=== PATIENT | female | born 1960 | race Caucasian/White ===

== ENCOUNTER 2016-10-17 17:33 | Observation (INO) | payer OTHER, MEDICAID ==
[2016-10-17] VITALS (7 sets, daily range): BP systolic 127–152; BP diastolic 82–86; PULSE 94–110; RESP 18–20; TEMP 98.2–98.5; O2SAT 94–96
[~2016-10-17] VITALS: Ht 167.6 cm; Wt 114.0 kg
[~2016-10-17 17:33] MED LIST: ALBUAER3 INH; CARV12.52 PO; FURO40TA PO; IPRASOL INH; LEVA750T PO; LORA-361 PO; MONT10TA2 PO; NAPR500T PO; PANT40TA3 PO; PAXI20TA PO; PRAM1TAB PO; PRED10 PO; PRED20 PO; PRED5TAB PO; SPIRCAP INH; SYMB160A INH; TRAZ50TA12 PO
[2016-10-17] MEDS ORDERED: methylPREDNISolone SOD SUCC 125 MG/2 ML VIAL IVP ONE (18:15)
[2016-10-17] MEDS ORDERED: SODIUM CHLORIDE 0.9% FLUSH 10 ML FLUSH IVF PRN (18:15)
[2016-10-17] MEDS: RESP: ALBUTEROL 2.5 MG/IPRATROPIUM 0.5 MG NEB (SCH) INH ×4 (18:25→20:41)
[2016-10-17 18:50] LABS: APTT (PATIENT) 24.8 SEC (24.3-30.1); INTERNATIONAL NORMALIZED RATIO 0.9 RATIO; PROTHROMBIN TIME - PATIENT 10.3 SEC (9.8-11.6)
[2016-10-17 18:55] LABS: AUTOMATED NEUTROPHIL # 12.6 TH/MM3 (1.8-7.7); BASOPHIL % 0.2 % (0.0-2.0); EOSINOPHIL % 0.2 % (0.0-4.0); HEMATOCRIT 41.8 % (35.0-46.0); HEMO FLAGS DIFF FINAL; LYMPH % 5.5 % (9.0-44.0); LYMPHOCYTE # 0.8 TH/MM3 (1.0-4.8); MEAN CELL VOLUME 92.8 FL (80.0-100.0); MEAN CORPUSCULAR HEMOGLOBIN 29.9 PG (27.0-34.0); MEAN CORPUSCULAR HGB CONC 32.2 % (32.0-36.0); MONO % 3.3 % (0.0-8.0); NEUT % 90.8 % (16.0-70.0); PLATELET COUNT 224 TH/MM3 (150-450); RED BLOOD COUNT 4.51 MIL/MM3 (4.00-5.30); RED CELL DISTRIBUTION WIDTH 14.8 % (11.6-17.2); WHITE BLOOD COUNT 13.8 TH/MM3 (4.0-11.0)
--- NOTE | 2016-10-17 19:11 | PD ---
HPI Chief Complaint: Chest Pain Time Seen by Provider: 19:11 Travel History International Travel<30 days: No Contact w/Intl Traveler<30days: No Traveled to known affect area: No History of Present Illness HPI 55 year old female with history of COPD, CAD, CHF. diabetes presents to the emergency department for evaluation of worsening shortness of breath. Pt recently finished treatment for pneumonia week and a long stent of oral steroids presents patchy completed yesterday. Today her breathing is significantly worse. Pt reports cough, productive of yellow sputum. States she is trying to quit smoking but "cheats" occasionally. She is on 2 LC O2 at home. PFSH Past Medical History Hx Anticoagulant Therapy: No AAA: No ADD: No ADHD: No Alzheimer's Disease: No Anemia: No Arthritis: Yes Asthma: Yes Atrial Fibrillation: No Blood Disorders: No Anxiety: No Depression: No Heart Rhythm Problems: No Cancer: No Cardiac Catheterization: Yes Cardiomyopathy: No Cardiovascular Problems: Yes (CHF) Cerebral Palsy: No High Cholesterol: Yes Chemotherapy: No Chest Pain: No Congestive Heart Failure: Yes Cirrhosis: No COPD: Yes Cerebrovascular Accident: No Coronary Artery Disease: No Cystic Fibrosis: No Dementia: No Developmental Delay: No Diabetes: Yes Patient Takes Glucophage: No Dialysis: No Diminished Hearing: No Diverticulitis: No Deep Vein Thrombosis: No Endocrine: No Fibromyalgia: No Gastrointestinal Disorders: Yes Genetic Disorder: No GERD: Yes Glaucoma: No Gout: No Genitourinary: No Headaches: No Hepatitis: No Hiatal Hernia: No Heparin Induced Thrombocytopen: No Herniated Disk: No Hypertension: Yes Immune Disorder: No Inguinal Hernia: No Implanted Vascular Access Dvce: No Insomnia: No Kidney Stones: No Musculoskeletal: Yes Neurologic: No Parkinson's Disease: No Psychiatric: No Reproductive: Yes (mass on left ovary) Respiratory: Yes (copd on o2 at 2 L NC) Resp. Syncytial Virus (RSV): No Immunizations Current: Yes Migraines: No Myocardial Infarction: No Pancreatitis: No Pneumonia: Yes Radiation Therapy: No Renal Failure: No Schizophrenia: No Seizures: No Shingles: No Sickle Cell Disease: No Sleep Apnea: No Thyroid Disease: No Triglycerides - High: No Ulcer: No Tetanus Vaccination: Unknown Influenza Vaccination: Yes ?: Not Menopausal: Yes : 4 Para: 3 Miscarriage: 0 : 1 Tubal Ligation: Yes (1982) Past Surgical History Abdominal Surgery: No AICD: No Appendectomy: No Arteriovenous Shunt: No Cardiac Surgery: No Cholecystectomy: No Coronary Artery Bypass Graft: No Coronary Stent: No Ear Surgery: No Endocrine Surgery: No Eye Surgery: No Genitourinary Surgery: No Gynecologic Surgery: Yes (Tubal Ligation) Hysterectomy: No Insulin Pump: No Joint Replacement: No Mastectomy: No Neurologic Surgery: No Oral Surgery: No Pacemaker: No Prostatectomy: No Thoracic Surgery: No Tonsillectomy: No Tympanostomy Tube: No Valve Replacement: No Other Surgery: No Family History Family Hypercholesterolemia: No Social History Alcohol Use: No Tobacco Use: Yes (one day ago) Substance Use: No Allergies-Medications (Allergen,Severity, Reaction): Coded Allergies: No Known Allergies (Verified , 06/13/16) Reported Meds & Prescriptions Reported Meds & Active Scripts Active Duoneb (Ipratropium-Albuterol Neb) 0.5-2.5 Mg/3 Ml Neb 1 Nebule INH DIRECTED PRN Prednisone 20 Mg Tab 20 Mg PO DAILY Prednisone 10 Mg Tab 10 Mg PO DAILY Prednisone 5 Mg Tab 5 Mg PO DAILY Trazodone (Trazodone HCl) 50 Mg Tab 50 Mg PO HS Levaquin (Levofloxacin) 750 Mg Tab 750 Mg PO Q24H Symbicort Inh (Budesonide/Formoterol Fumarate) 160-4.5 Mcg/Act Aero 2 Puff INH BID Reported Paxil (Paroxetine HCl) 20 Mg Tab 20 Mg PO DAILY Naproxen 500 Mg Tab 500 Mg PO BID Pantoprazole (Pantoprazole Sodium) 40 Mg Tab 40 Mg PO DAILY Pramipexole (Pramipexole Dihydrochloride) 1 Mg Tab 1 Mg PO HS Singulair (Montelukast Sodium) 10 Mg Tab 10 Mg PO HS Claritin (Loratadine) 10 Mg Tab 10 Mg PO DAILY Furosemide 40 Mg Tab 40 Mg PO DAILY Carvedilol 12.5 Mg Tab 12.5 Mg PO BID Spiriva Handihaler (Tiotropium Inh) 18 Mcg Cap 18 Mcg INH DAILY 1 capsule = 18 mcg Proair Hfa 8.5 GM Inh (Albuterol Sulfate) 90 Mcg/Act Aer 1 Puff INH Q4H PRN 108 mcg/actuation Review of Systems Except as stated in HPI: all other systems reviewed are Neg Physical Exam Narrative GENERAL: Well nourished, chronically ill appearing female pt is moderate respiratory distress SKIN: Focused skin assessment warm/dry. HEAD: Atraumatic. Normocephalic. EYES: Pupils equal and round. No scleral icterus. No injection or drainage. ENT: No nasal bleeding or discharge. Mucous membranes pink and moist. NECK: Trachea midline. No JVD. CARDIOVASCULAR: Tachycardic rate and rhythm. No murmur appreciated. RESPIRATORY: Pt is tri-podding. Diffuse wheeze; diminished bases; coarse cough Breath sounds equal bilaterally. GASTROINTESTINAL: Abdomen soft, non-tender, nondistended. Hepatic and splenic margins not palpable. MUSCULOSKELETAL: No obvious deformities. No clubbing. No cyanosis. No edema. NEUROLOGICAL: Awake and alert. No obvious cranial nerve deficits. Motor grossly within normal limits. Normal speech. PSYCHIATRIC: Appropriate mood and affect; insight and judgment normal. Data Data Last Documented VS Vital Signs Date Time Temp Pulse Resp B/P Pulse Ox O2 Delivery O2 Flow Rate FiO2 10/17/16 18:28 95 Nasal Cannula 2.00 10/17/16 18:15 98.5 94 20 152/82 Orders Complete Blood Count With Diff (10/17/16 18:09) B-Type Natriuretic Peptide (10/17/16 18:09) Act Partial Throm Time (Ptt) (10/17/16 18:09) Prothrombin Time / Inr (Pt) (10/17/16 18:09) Ckmb (Isoenzyme) Profile (10/17/16 18:09) Troponin I (10/17/16 18:09) Urinalysis - C+S If Indicated (10/17/16 18:09) Influenzae A/B Antigen (10/17/16 18:09) Iv Access Insert/Monitor (10/17/16 18:09) Electrocardiogram (10/17/16 18:09) Ecg Monitoring (10/17/16 18:09) Oximetry (10/17/16 18:09) Oxygen Administration (10/17/16 18:09) Chest, Single Ap (10/17/16 18:09) Sodium Chloride 0.9% Flush (Ns Flush) (10/17/16 18:15) Methylprednisolone So Succ Inj (Solumedr (10/17/16 18:15) Albuterol-Ipratropium Neb (Duoneb Neb) (10/17/16 18:15) Basic Metabolic Panel (Bmp) (10/17/16 20:02) Labs Laboratory Tests Test 10/17/16 10/17/16 18:16 19:30 White Blood Count 13.8 TH/MM3 Red Blood Count 4.51 MIL/MM3 Hemoglobin 13.5 GM/DL Hematocrit 41.8 % Mean Corpuscular Volume 92.8 FL Mean Corpuscular Hemoglobin 29.9 PG Mean Corpuscular Hemoglobin 32.2 % Concent Red Cell Distribution Width 14.8 % Platelet Count 224 TH/MM3 Mean Platelet Volume 9.9 FL Neutrophils (%) (Auto) 90.8 % Lymphocytes (%) (Auto) 5.5 % Monocytes (%) (Auto) 3.3 % Eosinophils (%) (Auto) 0.2 % Basophils (%) (Auto) 0.2 % Neutrophils # (Auto) 12.6 TH/MM3 Lymphocytes # (Auto) 0.8 TH/MM3 Monocytes # (Auto) 0.5 TH/MM3 Eosinophils # (Auto) 0.0 TH/MM3 Basophils # (Auto) 0.0 TH/MM3 CBC Comment DIFF FINAL Differential Comment Prothrombin Time 10.3 SEC Prothromb Time International 0.9 RATIO Ratio Activated Partial 24.8 SEC Thromboplast Time Total Creatine Kinase 61 U/L Troponin I LESS THAN 0.02 NG/ML B-Type Natriuretic Peptide 29 PG/ML Urine Color YELLOW Urine Turbidity CLEAR Urine pH 6.0 Urine Specific [place] 1.031 Urine Protein 30 mg/dL Urine Glucose (UA) NEG mg/dL Urine Ketones NEG mg/dL Urine Occult Blood NEG Urine Nitrite NEG Urine Bilirubin NEG Urine Urobilinogen LESS THAN 2.0 MG/DL Urine Leukocyte Esterase SMALL Urine RBC LESS THAN 1 /hpf Urine WBC 1 /hpf Urine Squamous Epithelial 1 /hpf Cells Urine Mucus FEW /lpf Microscopic Urinalysis Comment CULT NOT INDICATED MDM Medical Decision Making Medical Screen Exam Complete: Yes Emergency Medical Condition: Yes Medical Record Reviewed: Yes Differential Diagnosis COPD exacerbation versus CHF versus pneumonia versus malignancy Narrative Course 55-year-old female presents to the emergency department for evaluation of worsening shortness of breath. Patient initially is in moderate distress. She is tripoding with diffuse wheezing and diminished bases. She has a coarse cough. DuoNeb 3 and 125 mg IV Solu-Medrol is given. CBC is with mild leukocytosis of 13.8 and neutrophilia 12.6. Troponin is less than 0.02. BNP is 29. Urinalysis is a 30 proteinuria, small leukocyte esterase, few mucus, cultures not indicated. Influenza screen is negative. Chest x-ray is with no acute cardiopulmonary disease. 2010 Panel still pending. Upon reassessment, patient is resting quietly but when she sits up and starts to talk and interact with myself and my attending physician, patient becomes short of breath. She continues to have diffuse wheezing. Additional DuoNeb's are given. Plan is discussed with the patient and it is determined that she will benefit from observation,scheduled DuoNeb's, and IV steroids. Diagnosis Primary Impression: COPD with acute exacerbation Admitting Information Admitting Physician Requests: Observation Condition: Stable Irma Lowe Oct 17, 2016 19:11
[2016-10-17 19:23] LABS: CREATINE KINASE 61 U/L (26-192)
--- NOTE | 2016-10-17 19:27 | RADRPT ---
EXAM DATE/TIME: 10/17/2016 18:29 [facility] COMPARISON: CHEST SINGLE AP, June 13, 2016, 11:29. INDICATIONS : Shortness of Breath x 1 month with left sided chest pressure. Pt smokes 4 cigarettes a day. MEDICAL HISTORY : Chronic obstructive pulmonary disease. SURGICAL HISTORY : None. ENCOUNTER: Initial ACUITY: 1 day PAIN SCORE: 0/10 LOCATION: Bilateral chest FINDINGS: The lungs are clear without infiltrate, nodule, or mass. There is no appreciable pleural effusion fo r technique. Heart and mediastinum are unremarkable. CONCLUSION: No acute cardiopulmonary disease. Caden Dickerson MD on October 17, 2016 at 19:25 Board Certified Radiologist. This report was verified electronically.
[2016-10-17 20:00] LABS: BLOOD, URINE NEG (NEG); COMMENT (UR) CULT NOT INDICATED; CULTURE IF INDICATED CULT NOT INDICATED; GLUCOSE,URINE NEG (NEG); KETONE, URINE NEG (NEG); MUCUS URINE FEW /lpf (OCC); NITRITE,URINE NEG (NEG); SQUAMOUS EPITHELIAL CELL URINE 1 /hpf (0-5); URINE COLOR YELLOW (YELLW/STRAW)
--- NOTE | 2016-10-17 20:08 | PD ---
Data Data Last Documented VS Vital Signs Date Time Temp Pulse Resp B/P Pulse Ox O2 Delivery O2 Flow Rate FiO2 10/17/16 18:28 95 Nasal Cannula 2.00 10/17/16 18:15 98.5 94 20 152/82 Orders Complete Blood Count With Diff (10/17/16 18:09) B-Type Natriuretic Peptide (10/17/16 18:09) Act Partial Throm Time (Ptt) (10/17/16 18:09) Prothrombin Time / Inr (Pt) (10/17/16 18:09) Ckmb (Isoenzyme) Profile (10/17/16 18:09) Troponin I (10/17/16 18:09) Urinalysis - C+S If Indicated (10/17/16 18:09) Influenzae A/B Antigen (10/17/16 18:09) Iv Access Insert/Monitor (10/17/16 18:09) Electrocardiogram (10/17/16 18:09) Ecg Monitoring (10/17/16 18:09) Oximetry (10/17/16 18:09) Oxygen Administration (10/17/16 18:09) Chest, Single Ap (10/17/16 18:09) Sodium Chloride 0.9% Flush (Ns Flush) (10/17/16 18:15) Methylprednisolone So Succ Inj (Solumedr (10/17/16 18:15) Albuterol-Ipratropium Neb (Duoneb Neb) (10/17/16 18:15) Basic Metabolic Panel (Bmp) (10/17/16 20:02) Labs Laboratory Tests Test 10/17/16 10/17/16 18:16 19:30 White Blood Count 13.8 TH/MM3 Red Blood Count 4.51 MIL/MM3 Hemoglobin 13.5 GM/DL Hematocrit 41.8 % Mean Corpuscular Volume 92.8 FL Mean Corpuscular Hemoglobin 29.9 PG Mean Corpuscular Hemoglobin 32.2 % Concent Red Cell Distribution Width 14.8 % Platelet Count 224 TH/MM3 Mean Platelet Volume 9.9 FL Neutrophils (%) (Auto) 90.8 % Lymphocytes (%) (Auto) 5.5 % Monocytes (%) (Auto) 3.3 % Eosinophils (%) (Auto) 0.2 % Basophils (%) (Auto) 0.2 % Neutrophils # (Auto) 12.6 TH/MM3 Lymphocytes # (Auto) 0.8 TH/MM3 Monocytes # (Auto) 0.5 TH/MM3 Eosinophils # (Auto) 0.0 TH/MM3 Basophils # (Auto) 0.0 TH/MM3 CBC Comment DIFF FINAL Differential Comment Prothrombin Time 10.3 SEC Prothromb Time International 0.9 RATIO Ratio Activated Partial 24.8 SEC Thromboplast Time Total Creatine Kinase 61 U/L Troponin I LESS THAN 0.02 NG/ML B-Type Natriuretic Peptide 29 PG/ML Urine Color YELLOW Urine Turbidity CLEAR Urine pH 6.0 Urine Specific [place] 1.031 Urine Protein 30 mg/dL Urine Glucose (UA) NEG mg/dL Urine Ketones NEG mg/dL Urine Occult Blood NEG Urine Nitrite NEG Urine Bilirubin NEG Urine Urobilinogen LESS THAN 2.0 MG/DL Urine Leukocyte Esterase SMALL Urine RBC LESS THAN 1 /hpf Urine WBC 1 /hpf Urine Squamous Epithelial 1 /hpf Cells Urine Mucus FEW /lpf Microscopic Urinalysis Comment CULT NOT INDICATED MDM Supervised Visit with EDWARD: Yes Narrative Course The history, exam, and medical decision-making in the associated midlevel provider note were completed with my assistance. I reviewed and agree with the findings presented. I attest that I had a [id number] encounter with the patient on the same day, and personally performed and documented my assessment and findings in the medical record. *My assessment and Findings: This is a 55-year-old female who presents to the emergency department with a history of COPD on 2 L of oxygen at home with increasing shortness of breath. She completed a course of antibiotic 1 week ago and just completed a long taper of steroids yesterday. She is diffusely wheezing on exam with poor air movement, accessory muscle use and tachypnea. She improved following bronchodilator treatments but continues to have increased work of breathing and poor air movement. I think she would benefit from observation and continued bronchodilator treatments in the hospital. Elizabeth Bonilla MD Oct 17, 2016 20:07
[2016-10-17] MEDS ORDERED: RESP: ALBUTEROL 1.25 MG/3 ML NEB (PRN) NEB (20:30)
[2016-10-17 20:39] LABS: BICARBONATE 32.5 MEQ/L (21.0-32.0)
[2016-10-17 20:42] LABS: BLOOD UREA NITROGEN 24 MG/DL (7-18)
[2016-10-17 20:45] LABS: GLOMERULAR FILTRATION RATE 76 ML/MIN (>89)
[2016-10-17 20:46] LABS: ANION GAP 9 MEQ/L (5-15); CHLORIDE 101 MEQ/L (98-107); POTASSIUM 3.6 MEQ/L (3.5-5.1); SODIUM (NA) 142 MEQ/L (136-145)
[2016-10-17] MEDS ORDERED: [UNRECOGNIZED DRUG - OTHER] PO (21:13)
[2016-10-17] MEDS ORDERED: VITA100064 PO (21:13)
[2016-10-17] MEDS ORDERED: METF500T PO (21:13)
[2016-10-17] MEDS ORDERED: CARV25TA PO (21:13)
[2016-10-17] MEDS ORDERED: IBUPROFEN 800 MG TAB PO ONE (23:00)
[2016-10-17] MEDS: RESP: ALBUTEROL 2.5 MG/IPRATROPIUM 0.5 MG NEB (SCH) NEB (23:15)
[2016-10-17] MEDS ORDERED: PRAMIPEXOLE DIHYDROCHLORIDE 0.25 MG TAB PO ONE (23:15)
[2016-10-17] MEDS ORDERED: MONTELUKAST SODIUM 10 MG TAB PO ONE (23:15)
[2016-10-17] MEDS: methylPREDNISolone SOD SUCC 125 MG/2 ML VIAL IV PUSH SCH (23:35)
[2016-10-18] VITALS: BP 172/83; PULSE 114; RESP 18; TEMP 98.8; O2SAT 98
--- NOTE | 2016-10-18 01:59 | HHI.HP ---
[facility] Primary Care Physician Giulia Rosa M.D. Admission Diagnosis COPD exacerbation Diagnoses: (1) COPD with acute exacerbation Diagnosis: Principal Chief Complaint: sob Travel History International Travel<30 Days: No Contact w/Intl Traveler <30 Da: No Traveled to Known Affected Are: No History of Present Illness patient is a 55 y/o female with history of COPD- oxygen dependent, who presented to ER with worsening sob. she says that she was prescribed levaquin and prednisone by her PCP which she took for bout a week. however her sob started to get worse again. she has productive cough of greenish sputum. she denies any fever. her information systems auditor s . Review of Systems Constitutional: DENIES: Fever, Weight loss, Chills, Night Sweats Eyes: DENIES: Blurred vision, Diplopia, Vision loss, Double Vision Ears, nose, mouth, throat: DENIES: Tinnitus, Vertigo, Throat pain, Epistaxis Respiratory: COMPLAINS OF: Cough, Sputum production, Shortness of breath, DENIES: Apneas, Snoring, Wheezing, Hemoptysis Cardiovascular: DENIES: Chest pain, Palpitations, Syncope, Dyspnea on Exertion , PND, Lower Extremity Edema, Orthopnea, Claudication Gastrointestinal: DENIES: Abdominal pain, Black stools, Bloody stools, Constipation, Diarrhea, Nausea, Vomiting, Difficulty Swallowing, Anorexia Genitourinary: DENIES: Urinary frequency, Urgency, Hematuria, Dysuria Musculoskeletal: DENIES: Joint pain, Muscle aches, Stiffness, Joint Swelling Integumentary: DENIES: Rash Neurologic: DENIES: Abnormal gait, Headache, Localized weakness, Paresthesias, Seizures, Speech Problems, Tremor, Poor Balance Psychiatric: DENIES: Anxiety, Confusion, Mood changes, Depression, Hallucinations, Agitation, Suicidal Ideation, Homicidal Ideation, Delusions Past Family Social History Past Medical History COPD diabetes mellitus hypertension CHF Past Surgical History knee replacement Reported Medications Duoneb (Ipratropium-Albuterol Neb) 0.5-2.5 Mg/3 Ml Neb 1 Nebule INH DIRECTED PRN Prednisone 20 Mg Tab 20 Mg PO DAILY Prednisone 10 Mg Tab 10 Mg PO DAILY Prednisone 5 Mg Tab 5 Mg PO DAILY Trazodone (Trazodone HCl) 50 Mg Tab 50 Mg PO HS Levaquin (Levofloxacin) 750 Mg Tab 750 Mg PO Q24H Symbicort Inh (Budesonide/Formoterol Fumarate) 160-4.5 Mcg/Act Aero 2 Puff INH BID Reported Paxil (Paroxetine HCl) 20 Mg Tab 20 Mg PO DAILY Naproxen 500 Mg Tab 500 Mg PO BID Pantoprazole (Pantoprazole Sodium) 40 Mg Tab 40 Mg PO DAILY Pramipexole (Pramipexole Dihydrochloride) 1 Mg Tab 1 Mg PO HS Singulair (Montelukast Sodium) 10 Mg Tab 10 Mg PO HS Claritin (Loratadine) 10 Mg Tab 10 Mg PO DAILY Furosemide 40 Mg Tab 40 Mg PO DAILY Carvedilol 12.5 Mg Tab 12.5 Mg PO BID Spiriva Handihaler (Tiotropium Inh) 18 Mcg Cap 18 Mcg INH DAILY 1 capsule = 18 mcg Proair Hfa 8.5 GM Inh (Albuterol Sulfate) 90 Mcg/Act Aer 1 Puff INH Q4H PRN 108 mcg/actuation Allergies: Coded Allergies: No Known Allergies (Verified , 06/13/16) Active Ordered Medications Current Medications Sodium Chloride (NS Flush) 2 ml UNSCH PRN IVF FLUSH AFTER USING IV ACCESS; Start 10/17/16 at 18:15 Methylprednisolone Sodium Succinate (SoluMEDROL INJ) 125 mg ONCE ONCE IVP Last administered on 10/17/16 18:24; Start 10/17/16 at 18:15; Stop 10/17/16 at 18: 16; Status DC Albuterol/ Ipratropium (Duoneb Neb) 1 ampule Q15M INH Last administered on 18:26; Start 10/17/16 at 18:15; Stop 10/17/16 at 18:46; Status DC Albuterol/ Ipratropium (Duoneb Neb) 1 ampule Q15M INH Last administered on 20:41; Start 10/17/16 at 20:15; Stop 10/17/16 at 20:46; Status DC Methylprednisolone Sodium Succinate (SoluMEDROL INJ) 60 mg Q8H IV PUSH Last administered on 10/17/16 23:35; Start 10/18/16 at 00:00 Albuterol/ Ipratropium (Duoneb Neb) 1 ampule Q4HR NEB NEB ; Start 10/18/16 at 00 :00 Albuterol Sulfate (Albuterol Neb) 1.25 mg Q2HR NEB PRN NEB SHORTNESS OF BREATH ; Start 10/17/16 at 20:30 Ibuprofen (Motrin) 800 mg ONCE ONCE PO Last administered on 10/17/16 23:07; Start 10/17/16 at 23:00; Stop 10/17/16 at 23:01; Status DC Montelukast Sodium (Singulair) 10 mg ONCE ONCE PO Last administered on 23:35; Start 10/17/16 at 23:15; Stop 10/17/16 at 23:16; Status DC Pramipexole Dihydrochloride (Mirapex) 1 mg ONCE ONCE PO Last administered on 23:39; Start 10/17/16 at 23:15; Stop 10/17/16 at 23:16; Status DC Social History smokes five-six cigarettes a day- doesn't drink. Physical Exam Vital Signs Vital Signs Date Time Temp Pulse Resp B/P Pulse Ox O2 Delivery O2 Flow Rate FiO2 10/18/16 00:00 98.8 114 18 172/83 98 10/17/16 20:33 95 18 127/86 Nasal Cannula 2 10/17/16 20:25 94 Nasal Cannula 2.00 10/17/16 20:00 95 Nasal Cannula 2.00 10/17/16 18:28 95 Nasal Cannula 2.00 10/17/16 18:15 98.5 94 20 152/82 96 Nasal Cannula 2 10/17/16 18:14 96 Nasal Cannula 2 10/17/16 18:01 100 20 94 Nasal Cannula 2 10/17/16 18:01 98.5 110 20 152/82 95 Nasal Cannula 2 10/17/16 17:40 98.2 98 18 140/83 95 Nasal Cannula 2 Physical Exam GENERAL: obese female, in no apparent distress. SKIN: No rashes, ecchymoses or lesions. Cool and dry. HEAD: Atraumatic. Normocephalic. No temporal or scalp tenderness. EYES: Pupils equal round and reactive. Extraocular motions intact. No scleral icterus. No injection or drainage. ENT: Nose without bleeding, purulent drainage or septal hematoma. Throat without erythema, tonsillar hypertrophy or exudate. Uvula midline. Airway patent. NECK: Trachea midline. No JVD or lymphadenopathy. Supple, nontender, no meningeal signs. CARDIOVASCULAR: Regular rate and rhythm without murmurs, gallops, or rubs. RESPIRATORY: bilateral wheezing with prolonged expiration GASTROINTESTINAL: Abdomen soft, non-tender, nondistended. No hepato-splenomegaly , or palpable masses. No guarding. MUSCULOSKELETAL: Extremities without clubbing, cyanosis, or edema. No joint tenderness, effusion, or edema noted. No calf tenderness. Negative Homans sign bilaterally. NEUROLOGICAL: Awake and alert. Cranial nerves II through XII intact. Motor and sensory grossly within normal limits. Five out of 5 muscle strength in all muscle groups. Normal speech. Laboratory Laboratory Tests Test 10/17/16 10/17/16 18:16 19:30 White Blood Count 13.8 Red Blood Count 4.51 Hemoglobin 13.5 Hematocrit 41.8 Mean Corpuscular Volume 92.8 Mean Corpuscular Hemoglobin 29.9 Mean Corpuscular Hemoglobin 32.2 Concent Red Cell Distribution Width 14.8 Platelet Count 224 Mean Platelet Volume 9.9 Neutrophils (%) (Auto) 90.8 Lymphocytes (%) (Auto) 5.5 Monocytes (%) (Auto) 3.3 Eosinophils (%) (Auto) 0.2 Basophils (%) (Auto) 0.2 Neutrophils # (Auto) 12.6 Lymphocytes # (Auto) 0.8 Monocytes # (Auto) 0.5 Eosinophils # (Auto) 0.0 Basophils # (Auto) 0.0 CBC Comment DIFF FINAL Differential Comment Prothrombin Time 10.3 Prothromb Time International 0.9 Ratio Activated Partial 24.8 Thromboplast Time Sodium Level 142 Potassium Level 3.6 Chloride Level 101 Carbon Dioxide Level 32.5 Anion Gap 9 Blood Urea Nitrogen 24 Creatinine 0.78 Estimat Glomerular Filtration 76 Rate Random Glucose 206 Calcium Level 8.5 Total Creatine Kinase 61 Troponin I LESS THAN 0.02 B-Type Natriuretic Peptide 29 Urine Color YELLOW Urine Turbidity CLEAR Urine pH 6.0 Urine Specific [place] 1.031 Urine Protein 30 Urine Glucose (UA) NEG Urine Ketones NEG Urine Occult Blood NEG Urine Nitrite NEG Urine Bilirubin NEG Urine Urobilinogen LESS THAN 2.0 Urine Leukocyte Esterase SMALL Urine RBC LESS THAN 1 Urine WBC 1 Urine Squamous Epithelial 1 Cells Urine Mucus FEW Microscopic Urinalysis Comment CULT NOT INDICATED Date/Time Procedure Status Source Growth 10/17/16 18:16 Influenza Types A,B Antigen (RAMIREZ) - Final Complete Nasal Washing NEGATIVE FOR FLU A AND B ANTIGEN.... Result Diagram: [id number]/17/16181510/[id number]/161815 Imaging Last Impressions Chest X-Ray 10/17/16 180 Signed Impressions: Service Date/Time: October 18:29 - CONCLUSION: No acute cardiopulmonary disease. Caden Dickerson MD EKG; sinus rhythm with no acute ST-T changes. Assessment and Plan Assessment and Plan A/P - COPD exacerbation continue IV steroids, neb treatment and antibiotic- resume spiriva -keep on oxygen as needed to keep O2 sat > 90% of note the patient is on home oxygen. -diabetes mellitus; accu-check with SSI -hypertension; resume home meds -CHF- chronic diastolic- continue lasix -DVT prophylaxis with lovenox Discussed Condition With ER physician and the patient. Mike Garcia MD Oct 18, 2016 01:59
[2016-10-18] MEDS ORDERED: LEVOFLOXACIN 500 MG PREMIX INJ 100 ML IV SCH (02:00)
[2016-10-18] MEDS: RESP: ALBUTEROL 2.5 MG/IPRATROPIUM 0.5 MG NEB (SCH) NEB ×3 (03:10→12:00)
[2016-10-18 04:35] VITALS: BP 144/84; PULSE 100; RESP 18; TEMP 98.8; O2SAT 94
[2016-10-18 07:58] VITALS: O2SAT 96
[2016-10-18 08:02] VITALS: BP 138/80; PULSE 94; RESP 18; O2SAT 95
[2016-10-18] MEDS ORDERED: TIOTROPIUM BROMIDE 18 MCG INH INH SCH (09:00)
[2016-10-18] MEDS ORDERED: CARVEDILOL 12.5 MG TAB PO SCH (09:00)
[2016-10-18] MEDS ORDERED: FUROSEMIDE 40 MG TAB PO SCH (09:00)
[2016-10-18] MEDS ORDERED: PANTOPRAZOLE SOD 40 MG DELAYED RELEASE TAB PO SCH (09:00)
[2016-10-18] MEDS ORDERED: PARoxetine HCL 20 MG TAB PO SCH (09:00)
[2016-10-18] MEDS ORDERED: ENOXAPARIN SODIUM 40 MG/0.4 ML SYRINGE SQ SCH (09:00)
[2016-10-18] MEDS: methylPREDNISolone SOD SUCC 125 MG/2 ML VIAL IV PUSH SCH (09:15)
--- NOTE | 2016-10-18 09:44 | HHI.PR ---
Subjective Remarks Breathing is better overnight since coming through the emergency room. She states that she does have equipment at home and has her home oxygen nebulizer machine and daughter as her social support. She would like to try to go home on a different antibiotic that she just completed Levaquin 2 weeks ago. Objective Vitals Vital Signs Date Time Temp Pulse Resp B/P Pulse Ox O2 Delivery O2 Flow Rate FiO2 10/18/16 08:02 94 18 138/80 95 10/18/16 07:58 96 Nasal Cannula 2.00 10/18/16 04:35 98.8 100 18 144/84 94 10/18/16 01:58 20 10/18/16 00:00 98.8 114 18 172/83 98 10/17/16 20:33 95 18 127/86 Nasal Cannula 2 10/17/16 20:25 94 Nasal Cannula 2.00 10/17/16 20:00 95 Nasal Cannula 2.00 10/17/16 18:28 95 Nasal Cannula 2.00 10/17/16 18:15 98.5 94 20 152/82 96 Nasal Cannula 2 10/17/16 18:14 96 Nasal Cannula 2 10/17/16 18:01 100 20 94 Nasal Cannula 2 10/17/16 18:01 98.5 110 20 152/82 95 Nasal Cannula 2 10/17/16 17:40 98.2 98 18 140/83 95 Nasal Cannula 2 Result Diagram: 10/17/16 1816 10/17/16 181 Objective Remarks GENERAL: This is a well-nourished, obese, well-developed patient, in no apparent distress. CARDIOVASCULAR: Regular rate and rhythm RESPIRATORY: Diminished breath sounds bilaterally with few bibasilar wheezes GASTROINTESTINAL: Abdomen soft, obese, non-tender, nondistended. Normal active bowel sounds MUSCULOSKELETAL: Extremities without clubbing, cyanosis, or trace edema NEURO: Alert & Oriented x4 to person, place, time, situation. Moves all ext x4 A/P Problem List: (1) COPD with acute exacerbation ICD Code: J44.1 Status: Acute Assessment and Plan 1. Acute COPD exacerbation in a patient with a history of 2 L O2 dependence patient states that she was on Levaquin 2 weeks ago and symptoms has not improved however since coming in overnight, her breathing has improved and requests being discharged home on steroid taper and antibiotics. She does have home O2 and nebulizer machine. She also states that she has a daughter at home who does provide social support. Continue IV steroids and will switch to by mouth steroid, neb treatment and antibiotic- resume spiriva -keep on oxygen as needed to keep O2 sat > 90% -diabetes mellitus type II,; accu-check with SSI -hypertension; resume home meds -CHF- chronic diastolic- patient has no acute exacerbation continue lasix Morbid obesity with BMI greater than 40weight loss counseling Tobacco usecessation counseling provided, she understands this is the reason why she has multiple COPD exacerbations -DVT prophylaxis with lovenox Discharge Planning Discharge patient to home Condition on discharge: Improved Diabetic Diet as tolerated Ad Nurys activity Rx written: Prednisone taper Doxycycline 100 milligrams by mouth twice a day [place] Follow-up with primary care physician Stephanie Isidro MD Oct 18, 2016 09:44
[2016-10-18] MEDS ORDERED: ADVA500A INH ×2 (09:50→09:53)
[2016-10-18] MEDS ORDERED: IPRASOL INH (10:07)
[2016-10-18] MEDS ORDERED: DOXY100C PO (10:07)
[2016-10-18] MEDS ORDERED: PRED20 PO (10:07)
--- NOTE | 2016-10-18 10:09 | HHI.DCPOC ---
Discharge Care Plan Diagnosis: (1) COPD with acute exacerbation Your Health Problems Are: Shortness of Breath Goals to Promote Your Health * To prevent worsening of your condition and complications * To maintain your health at the optimal level Directions to Meet Your Goals Take your medications as prescribed Follow your dietary instruction Follow activity as directed Continue home oxygen. Keep your appointments as scheduled Take your immunizations and boosters as scheduled If your symptoms worsen call your PCP, if no PCP go to Urgent Care Center or Emergency Room Smoking is Dangerous to Your Health. Avoid second hand smoke Call the 24-hour hour crisis hotline for domestic abuse at Stephanie Isidro MD Oct 18, 2016 10:08
[2016-10-18] MEDS ORDERED: DOXYCYCLINE HYCLATE 100 MG CAP PO ONE (10:15)
--- NOTE | 2016-10-18 13:33 | EKG ---
Date Performed: 10/17/2016 Time Performed: 18:05:27 PTAGE: 55 years EKG: Sinus rhythm NONSPECIFIC T-WAVE ABNORMALITY BORDERLINE ECG Compared to prior tracing no significant change PREVIOUS TRACING : 06/13/2016 09.31 DOCTOR: Armando Vizcarra Interpretating Date/Time 10/18/2016 13:32:21
[2016-10-18] MEDS ORDERED: MONTELUKAST SODIUM 10 MG TAB PO SCH (21:00)
[2016-10-18] MEDS ORDERED: PRAMIPEXOLE DIHYDROCHLORIDE 1 MG TAB PO SCH (21:00)
[2016-10-18] MEDS ORDERED: DOXYCYCLINE HYCLATE 100 MG CAP PO SCH (21:00)
== END 2016-10-18 14:23 | disposition home or self-care (01) ==
LOC: NEPE 17:33 → NEDA 20:29 → NEPGCP 23:42
PROVIDERS: ADMIT Family Medicine; ATTEND Family Medicine
DX: J44.1 Chronic obstructive pulmonary disease with (acute) exacerbation (principal); I11.0 Hypertensive heart disease with heart failure; I50.9 Heart failure, unspecified; I25.10 Atherosclerotic heart disease of native coronary artery without angina pectoris; E11.9 Type 2 diabetes mellitus without complications; M19.90 Unspecified osteoarthritis, unspecified site; K21.9 Gastro-esophageal reflux disease without esophagitis; F17.210 Nicotine dependence, cigarettes, uncomplicated; Z99.81 Dependence on supplemental oxygen; Z87.01 Personal history of pneumonia (recurrent); Z96.659 Presence of unspecified artificial knee joint
CPT/HCPCS: 71010; 80048; 81001; 82550; 83880; 84484; 85025; 85610; 85730; 87804; 93005; 94640; 94664; 96374; 99285; G0378; J1650; J1956; J2930

== ENCOUNTER 2016-10-30 09:56 | Emergency (ER) | payer OTHER, MEDICAID ==
[~2016-10-30] VITALS: Ht 167.6 cm; Wt 114.0 kg
[~2016-10-30 09:56] MED LIST changes: +ADVA500A INH; -CARV12.52 PO; +CARV25TA PO; +DOXY100C PO; -LEVA750T PO; -LORA-361 PO; +METF500T PO; -PRED10 PO; -PRED5TAB PO; -SYMB160A INH; -TRAZ50TA12 PO; +VITA100064 PO; +[UNRECOGNIZED DRUG - OTHER] PO
[2016-10-30 09:58] VITALS: BP 126/68; PULSE 86; RESP 24; TEMP 98.6; O2SAT 97
[2016-10-30] MEDS ORDERED: MOTR200T4 PO (10:20)
[2016-10-30] MEDS ORDERED: oxygen (10:21)
--- NOTE | 2016-10-30 10:36 | PD ---
HPI . left side pain after fall Chief Complaint: Fall Time Seen by Provider: 10:36 Travel History International Travel<30 days: No Contact w/Intl Traveler<30days: No Traveled to known affect area: No History of Present Illness HPI 55-year-old female with history of hypertension, diabetes, CHF, COPD on oxygen, restless leg syndrome and also arthritis here status post fall yesterday. Patient was getting a cup coffee when she somehow spilled it and she slipped hitting her left side on the wall. Patient is now complaining of left lateral rib pain and left knee pain. She tells me the pain is 10/10 without any further radiation in those 2 areas. She does have a bruise on the left lateral chest wall near her breast. She also has some erythema to the left lateral knee and point tenderness. She denies any head injury or loss of consciousness. She has no other complaints. PFSH Past Medical History Hx Anticoagulant Therapy: No AAA: No ADD: No ADHD: No Alzheimer's Disease: No Anemia: No Arthritis: Yes Asthma: Yes Atrial Fibrillation: No Blood Disorders: No Anxiety: No Depression: No Heart Rhythm Problems: No Cancer: No Cardiac Catheterization: Yes Cardiomyopathy: No Cardiovascular Problems: Yes (CHF) Cerebral Palsy: No High Cholesterol: Yes Chemotherapy: No Chest Pain: No Congestive Heart Failure: Yes Cirrhosis: No COPD: Yes Cerebrovascular Accident: No Coronary Artery Disease: No Cystic Fibrosis: No Dementia: No Developmental Delay: No Diabetes: Yes Dialysis: No Diminished Hearing: No Diverticulitis: No Deep Vein Thrombosis: No Endocrine: No Fibromyalgia: No Gastrointestinal Disorders: Yes Genetic Disorder: No GERD: Yes Glaucoma: No Gout: No Genitourinary: No Headaches: No Hepatitis: No Hiatal Hernia: No Heparin Induced Thrombocytopen: No Herniated Disk: No Hypertension: Yes Immune Disorder: No Inguinal Hernia: No Implanted Vascular Access Dvce: No Insomnia: No Kidney Stones: No Musculoskeletal: Yes Neurologic: No Parkinson's Disease: No Psychiatric: No Reproductive: Yes (mass on left ovary) Respiratory: Yes (COPD ON O2 AT ALL TIMES AT 2L) Resp. Syncytial Virus (RSV): No Immunizations Current: Yes Migraines: No Myocardial Infarction: No Pancreatitis: No Pneumonia: Yes Radiation Therapy: No Renal Failure: No Schizophrenia: No Seizures: No Shingles: No Sickle Cell Disease: No Sleep Apnea: No Thyroid Disease: No Triglycerides - High: No Ulcer: No ?: Not Menopausal: Yes : 4 Para: 3 Miscarriage: 0 : 1 Tubal Ligation: Yes (1982) Past Surgical History Abdominal Surgery: No AICD: No Appendectomy: No Arteriovenous Shunt: No Cardiac Surgery: No Cholecystectomy: No Coronary Artery Bypass Graft: No Coronary Stent: No Ear Surgery: No Endocrine Surgery: No Eye Surgery: No Genitourinary Surgery: No Gynecologic Surgery: Yes (Tubal Ligation) Hysterectomy: No Insulin Pump: No Joint Replacement: No Mastectomy: No Neurologic Surgery: No Oral Surgery: No Pacemaker: No Prostatectomy: No Thoracic Surgery: No Tonsillectomy: No Tympanostomy Tube: No Valve Replacement: No Other Surgery: No Family History Family Hypercholesterolemia: No Social History Alcohol Use: No Tobacco Use: Yes (one day ago) Substance Use: No Allergies-Medications (Allergen,Severity, Reaction): Coded Allergies: No Known Allergies (Verified , 06/13/16) Reported Meds & Prescriptions Reported Meds & Active Scripts Active Duoneb (Ipratropium-Albuterol Neb) 0.5-2.5 Mg/3 Ml Neb 1 Nebule INH DIRECTED PRN Reported [oxygen] 2 Liter DIRECTED Motrin Ib (Ibuprofen) 200 Mg Tab 800 Mg PO Q4H PRN Advair Diskus Inh (Fluticasone-Salmeterol Inh) 500-50 Mcg/Blist Aer 1 Puff INH BID Rinse mouth after use. Vitamin D (Cholecalciferol) 1,000 Unit Tab 1,000 Units PO BID Metformin (Metformin HCl) 500 Mg Tab 500 Mg PO BIDPC With meals Carvedilol 25 Mg Tab 25 Mg PO BID Paxil (Paroxetine HCl) 20 Mg Tab 20 Mg PO DAILY Naproxen 500 Mg Tab 500 Mg PO BID Pantoprazole (Pantoprazole Sodium) 40 Mg Tab 40 Mg PO DAILY Pramipexole (Pramipexole Dihydrochloride) 1 Mg Tab 1 Mg PO HS Singulair (Montelukast Sodium) 10 Mg Tab 10 Mg PO HS Furosemide 40 Mg Tab 40 Mg PO DAILY Spiriva Handihaler (Tiotropium Inh) 18 Mcg Cap 18 Mcg INH DAILY 1 capsule = 18 mcg Proair Hfa 8.5 GM Inh (Albuterol Sulfate) 90 Mcg/Act Aer 1 Puff INH Q4H PRN 108 mcg/actuation Review of Systems General / Constitutional: No: Fever Eyes: No: Visual changes HENT: No: Headaches Cardiovascular: No: Chest Pain or Discomfort Respiratory: No: Shortness of Breath Gastrointestinal: No: Abdominal Pain Genitourinary: No: Dysuria Musculoskeletal: Positive: Pain (left rib and knee) Skin: No Rash Neurologic: No: Weakness Psychiatric: No: Depression Endocrine: No: Polydipsia Hematologic/Lymphatic: No: Easy Bruising Physical Exam Narrative GENERAL: AAO x 3, no acute distress, Well-nourished, well-developed patient. Patient with portable o2 SKIN: Warm and dry. No visible rashes or bruising. two half dollar sized ecchymotic areas on the lateral chest wall near breast line HEAD: Normocephalic and atraumatic. EYES: No scleral icterus. No injection or drainage. ENT: No nasal drainage noted. Airway patent. NECK: Supple, trachea midline. No JVD. CARDIOVASCULAR: Regular rate and rhythm without murmurs, gallops, or rubs. RESPIRATORY: Breath sounds equal bilaterally. No accessory muscle use. No rhonchi or rales. GASTROINTESTINAL: Abdomen soft, non-tender, nondistended. EXTREMITIES: No cyanosis or edema. left lateral knee/patella, erythema and tender to touch BACK: Nontender without obvious deformity. No CVA tenderness. PSYCH: AAO x 3, normal affect. Data Data Last Documented VS Vital Signs Date Time Temp Pulse Resp B/P Pulse Ox O2 Delivery O2 Flow Rate FiO2 10/30/16 09:58 98.6 86 24 126/68 97 Nasal Cannula Orders Knee, Complete (4vws) (10/30/16 10:38) Ribs, Uni (W/Exp Cxr-Min 3vw) (10/30/16 10:38) Tramadol (Ultram) (10/30/16 10:45) ^ Arthur Bandage (10/30/16 11:32) MDM Medical Decision Making Medical Screen Exam Complete: Yes Emergency Medical Condition: Yes Medical Record Reviewed: Yes Differential Diagnosis rib fracture, rib contusion, knee contusion, knee fracture, less likely knee dislocation Narrative Course 55-year-old female with history of hypertension, diabetes, CHF, COPD on oxygen, restless leg syndrome and also arthritis here status post fall yesterday. Patient was getting a cup coffee when she somehow spilled it and she slipped hitting her left side on the wall. Patient is now complaining of left lateral rib pain and left knee pain. She tells me the pain is 10/10 without any further radiation in those 2 areas. She does have a bruise on the left lateral chest wall near her breast. She also has some erythema to the left lateral knee and point tenderness. She den Patient seen and examined. She does have some ecchymosis to the left lateral chest wall and some erythema to the left lateral knee. X-rays ordered. Tramadol for pain. Last Impressions Ribs X-Ray 10/30/16 1038 Signed Impressions: Service Date/Time: Sunday, October 30, 2016 11:00 - CONCLUSION: No rib fracture seen. Andrea Posey MD Knee X-Ray 10/30/16 1038 Signed Impressions: Service Date/Time: Sunday, October 30, 2016 11:06 - CONCLUSION: No acute findings. Intact total knee arthroplasty. Andrea Posey MD Arthur wrap for support to left knee. Offered crutches but patient declined. Ibuprofen as needed for pain. Advise follow-up with primary care provider. I'm enclosing statement Diagnosis Primary Impression: Rib contusion Qualified Code: S20.212A - Rib contusion, left, initial encounter Additional Impression: Contusion, knee Qualified Code: S80.02XA - Contusion of left knee, initial encounter Patient Instructions: General Instructions Additional Instructions: Rest the affected area as much as possible. Ice this area for 15-20 minutes at a time. You can do this every hour or as much as tolerated. Keep this area compressed (arthur bandage) as tolerated. Elevate this area. Use ibuprofen as needed for pain and inflammation. Please follow-up with your primary care provider. Med/Other Pt SpecificInfo: No Change to Meds Disposition: 01 DISCHARGE HOME Condition: Stable Sanjuana Rubio Oct 30, 2016 10:36
[2016-10-30] MEDS ORDERED: traMADol HCL 50 MG TAB PO ONE (10:45)
--- NOTE | 2016-10-30 11:02 | RADRPT ---
EXAM DATE/TIME: 10/30/2016 11:00 [facility] COMPARISON: No previous studies available for comparison. INDICATIONS : Left sided rib pain, fall. MEDICAL HISTORY : None. SURGICAL HISTORY : None. ENCOUNTER: Initial ACUITY: 1 day PAIN SCORE: 10/10 LOCATION: Left upper ribs FINDINGS: Imaged quality is mildly compromised due to motion artifact. The study still is diagnostic. Multipl e views of the left ribs were performed. There is no evidence of displaced fracture. No destructive lesions or areas of periosteal thickening are seen. Expiratory view of the chest is negative for pn eumothorax. The mediastinal structures are midline. CONCLUSION: No rib fracture seen. Andrea Posey MD on October 30, 2016 at 10:58 Board Certified Radiologist. This report was verified electronically.
--- NOTE | 2016-10-30 11:10 | RADRPT ---
EXAM DATE/TIME: 10/30/2016 11:06 [facility] COMPARISON: No previous studies available for comparison. INDICATIONS : Fell yesterday. MEDICAL HISTORY : None. SURGICAL HISTORY : left knee replacement 2009 ENCOUNTER: Initial ACUITY: 1 day PAIN SCORE: 10/10 LOCATION: Left knee FINDINGS: Total knee arthroplasty with intact hardware. The osseous structures are normal alignment. No fract ure seen. The suprapatellar soft tissues are normal in thickness. CONCLUSION: No acute findings. Intact total knee arthroplasty. Andrea Posey MD on October 30, 2016 at 11:07 Board Certified Radiologist. This report was verified electronically.
[2016-10-30 12:26] VITALS: RESP 22
== END 2016-10-30 12:33 | disposition home or self-care (01) ==
LOC: NEPK 09:56
DX: S20.212A Contusion of left front wall of thorax, initial encounter (principal); I50.9 Heart failure, unspecified; M19.90 Unspecified osteoarthritis, unspecified site; I10 Essential (primary) hypertension; E78.00 Pure hypercholesterolemia, unspecified; J44.9 Chronic obstructive pulmonary disease, unspecified; E11.9 Type 2 diabetes mellitus without complications; W01.198A Fall on same level from slipping, tripping and stumbling with subsequent striking against other object, initial encounter; Z99.81 Dependence on supplemental oxygen; Z79.4 Long term (current) use of insulin; Z96.652 Presence of left artificial knee joint
CPT/HCPCS: 71101; 73564; 99284

== ENCOUNTER 2016-11-18 08:08 | Inpatient (IN) | payer OTHER, MEDICARE ==
[~2016-11-18] VITALS: Ht 167.6 cm; Wt 111.7 kg
[2016-11-18] VITALS (9 sets, daily range): BP systolic 114–133; BP diastolic 55–85; PULSE 76–107; RESP 16–28; TEMP 96.5–98.2; O2SAT 91–96
[~2016-11-18 08:08] MED LIST changes: -DOXY100C PO; +MOTR200T4 PO; -PRED20 PO; -[UNRECOGNIZED DRUG - OTHER] PO; +oxygen
[2016-11-18] MEDS ORDERED: SODIUM CHLOR 0.9% 1000 ML INJ 1,000 ML IV SCH (08:27)
[2016-11-18] MEDS ORDERED: SODIUM CHLORIDE 0.9% FLUSH 10 ML FLUSH IV FLUSH PRN ×2 (08:30→11:15)
[2016-11-18] MEDS ORDERED: RESP: ALBUTEROL 2.5 MG/IPRATROPIUM 0.5 MG NEB (SCH) NEB ONE (08:30)
[2016-11-18] MEDS ORDERED: MORPHINE SULFATE 4 MG/ML INJ IV PUSH ONE (08:30)
[2016-11-18] MEDS ORDERED: ONDANSETRON HCL 4 MG/2 ML VIAL IVP ONE (08:30)
[2016-11-18] MEDS ORDERED: methylPREDNISolone SOD SUCC 125 MG/2 ML VIAL IV PUSH ONE (08:30)
--- NOTE | 2016-11-18 08:33 | PD ---
HPI Chief Complaint: Abdominal Pain Time Seen by Provider: 08:27 Travel History International Travel<30 days: No Contact w/Intl Traveler<30days: No Traveled to known affect area: No History of Present Illness HPI The patient is a 55-year-old female who presents emergency department for multiple complaints. The patient has a long-standing history of COPD, quit smoking one week ago, is currently on home oxygen. Patient notes wheezing with a somewhat productive cough and mild shortness of breath. The patient also complains of abdominal pain over the last 5 days, her last bowel movement was 5 days ago according to EMS. The patient took a stool softener then a laxative, she states she had a bowel movement yesterday which was watery, then her pain significantly increased. The abdominal pain is located in the lower aspect of her abdomen bilaterally, radiates to the upper aspect of her abdomen, and is associated with mild nausea. However, the patient denies any vomiting. The patient does have a history of tubal ligation and left ovarian cyst/mass, however, is unable to have surgery secondary to her current respiratory status. The patient denies any dysuria, frequency, urgency, vaginal discharge, or vaginal bleeding. Patient denies any current fever. Symptoms are moderate without any alleviating or exacerbating factors. PFSH Past Medical History Hx Anticoagulant Therapy: No AAA: No ADD: No ADHD: No Alzheimer's Disease: No Anemia: No Arthritis: Yes Asthma: Yes Atrial Fibrillation: No Blood Disorders: No Anxiety: No Depression: No Heart Rhythm Problems: No Cancer: No Cardiac Catheterization: Yes Cardiomyopathy: No Cardiovascular Problems: Yes (CHF) Cerebral Palsy: No High Cholesterol: Yes Chemotherapy: No Chest Pain: No Congestive Heart Failure: Yes Cirrhosis: No COPD: Yes Cerebrovascular Accident: No Coronary Artery Disease: No Cystic Fibrosis: No Dementia: No Developmental Delay: No Diabetes: Yes Dialysis: No Diminished Hearing: No Diverticulitis: No Deep Vein Thrombosis: No Endocrine: No Fibromyalgia: No Gastrointestinal Disorders: Yes Genetic Disorder: No GERD: Yes Glaucoma: No Gout: No Genitourinary: No Headaches: No Hepatitis: No Hiatal Hernia: No Heparin Induced Thrombocytopen: No Herniated Disk: No Hypertension: Yes Immune Disorder: No Inguinal Hernia: No Implanted Vascular Access Dvce: No Insomnia: No Kidney Stones: No Musculoskeletal: Yes Neurologic: No Parkinson's Disease: No Psychiatric: No Reproductive: Yes (mass on left ovary) Respiratory: Yes (COPD WITH CONTINUOUS 2L NC AT HOME) Resp. Syncytial Virus (RSV): No Immunizations Current: Yes Migraines: No Myocardial Infarction: No Pancreatitis: No Pneumonia: Yes Radiation Therapy: No Renal Failure: No Schizophrenia: No Seizures: No Shingles: No Sickle Cell Disease: No Sleep Apnea: No Thyroid Disease: No Triglycerides - High: No Ulcer: No Menopausal: Yes : 4 Para: 3 Miscarriage: 0 : 1 Tubal Ligation: Yes (1982) Past Surgical History Abdominal Surgery: No AICD: No Appendectomy: No Arteriovenous Shunt: No Cardiac Surgery: No Cholecystectomy: No Coronary Artery Bypass Graft: No Coronary Stent: No Ear Surgery: No Endocrine Surgery: No Eye Surgery: No Genitourinary Surgery: No Gynecologic Surgery: Yes (Tubal Ligation) Hysterectomy: No Insulin Pump: No Joint Replacement: No Mastectomy: No Neurologic Surgery: No Oral Surgery: No Pacemaker: No Prostatectomy: No Thoracic Surgery: No Tonsillectomy: No Tympanostomy Tube: No Valve Replacement: No Other Surgery: No Family History Family Hypercholesterolemia: No Social History Alcohol Use: No Tobacco Use: Yes (one day ago) Substance Use: No Allergies-Medications (Allergen,Severity, Reaction): Coded Allergies: No Known Allergies (Verified , 06/13/16) Reported Meds & Prescriptions Reported Meds & Active Scripts Active Duoneb (Ipratropium-Albuterol Neb) 0.5-2.5 Mg/3 Ml Neb 1 Nebule INH DIRECTED PRN Reported Atorvastatin (Atorvastatin Calcium) 10 Mg Tab 10 Mg PO HS Bupropion HCl ER 24 HR (Bupropion HCl) 150 Mg Tab 150 Mg PO DAILY Motrin Ib (Ibuprofen) 200 Mg Tab 800 Mg PO Q4H PRN Advair Diskus Inh (Fluticasone-Salmeterol Inh) 500-50 Mcg/Blist Aer 1 Puff INH BID Rinse mouth after use. Vitamin D (Cholecalciferol) 1,000 Unit Tab 1,000 Units PO BID Metformin (Metformin HCl) 500 Mg Tab 500 Mg PO BIDPC With meals Carvedilol 25 Mg Tab 25 Mg PO BID Paxil (Paroxetine HCl) 20 Mg Tab 20 Mg PO DAILY Naproxen 500 Mg Tab 500 Mg PO BID Pantoprazole (Pantoprazole Sodium) 40 Mg Tab 40 Mg PO DAILY Pramipexole (Pramipexole Dihydrochloride) 1 Mg Tab 1 Mg PO HS Singulair (Montelukast Sodium) 10 Mg Tab 10 Mg PO HS Furosemide 40 Mg Tab 40 Mg PO BID Spiriva Handihaler (Tiotropium Inh) 18 Mcg Cap 18 Mcg INH DAILY 1 capsule = 18 mcg Proair Hfa 8.5 GM Inh (Albuterol Sulfate) 90 Mcg/Act Aer 1 Puff INH Q4H PRN 108 mcg/actuation Review of Systems Except as stated in HPI: all other systems reviewed are Neg General / Constitutional: No: Fever Cardiovascular: No: Chest Pain or Discomfort Respiratory: Positive: Cough, Shortness of Breath, Wheezing Gastrointestinal: Positive: Nausea, Abdominal Pain, Constipation, Changes in Bowel Habits, No: Vomiting Genitourinary: No: Dysuria, Discharge, Vaginal Bleeding Musculoskeletal: No: Myalgias, Arthralgias Physical Exam Narrative GENERAL: Awake, alert, pleasant 55 year-old female who appears her stated age and is in mild respiratory distress. SKIN: Focused skin assessment warm/dry. HEAD: Atraumatic. Normocephalic. EYES: Pupils equal and round. No scleral icterus. No injection or drainage. ENT: No nasal bleeding or discharge. Upper dentures in place. NECK: Trachea midline. No JVD. CARDIOVASCULAR: Regular, tachycardic with a heart rate of 110. RESPIRATORY: No accessory muscle use. Diffuse wheezing with rhonchi. GASTROINTESTINAL: Abdomen soft, obese, diffusely tender without rebound tenderness. Rectal: The exam was performed in the presence of a female nurse. No fecal impaction noted. No gross blood. MUSCULOSKELETAL: No obvious deformities. No clubbing. No cyanosis. No edema. NEUROLOGICAL: Awake and alert. No obvious cranial nerve deficits. Motor grossly within normal limits. Normal speech. PSYCHIATRIC: Appropriate mood and affect; insight and judgment normal. Data Data Last Documented VS Vital Signs Date Time Temp Pulse Resp B/P Pulse Ox O2 Delivery O2 Flow Rate FiO2 11/18/16 10:03 91 Nasal Cannula 2 11/18/16 08:21 98.2 107 28 128/65 Orders Electrocardiogram (11/18/16 08:21) Complete Blood Count With Diff (11/18/16 08:27) Comprehensive Metabolic Panel (11/18/16 08:27) Lipase (11/18/16 08:27) Lactic Acid (11/18/16 08:27) Urinalysis - C+S If Indicated (11/18/16 08:27) Ct Abd/Pel W/O Iv Contrast (11/18/16 08:27) Iv Access Insert/Monitor (11/18/16 08:27) Ecg Monitoring (11/18/16 08:27) Oximetry (11/18/16 08:27) Morphine Inj (Morphine Inj) (11/18/16 08:30) Ondansetron Inj (Zofran Inj) (11/18/16 08:30) Sodium Chlor 0.9% 1000 Ml Inj (Ns 1000 M (11/18/16 08:27) Sodium Chloride 0.9% Flush (Ns Flush) (11/18/16 08:30) Chest, Single Ap (11/18/16 08:27) Albuterol-Ipratropium Neb (Duoneb Neb) (11/18/16 08:30) Methylprednisolone So Succ Inj (Solumedr (11/18/16 08:30) Blood Culture (11/18/16 09:47) Sodium Chlor 0.9% 1000 Ml Inj (Ns 1000 M (11/18/16 10:00) Ciprofloxacin 400 Mg Premix (Cipro 400 M (11/18/16 10:15) Metronidazole 500 Mg Inj (Flagyl 500 Mg (11/18/16 10:15) Sodium Chlor 0.9% 1000 Ml Inj (Ns 1000 M (11/18/16 10:15) Labs Laboratory Tests Test 11/18/16 11/18/16 08:40 08:50 White Blood Count 34.3 TH/MM3 Red Blood Count 4.95 MIL/MM3 Hemoglobin 15.2 GM/DL Hematocrit 44.7 % Mean Corpuscular Volume 90.4 FL Mean Corpuscular Hemoglobin 30.8 PG Mean Corpuscular Hemoglobin 34.0 % Concent Red Cell Distribution Width 13.3 % Platelet Count 331 TH/MM3 Mean Platelet Volume 10.1 FL Neutrophils (%) (Auto) 93.0 % Lymphocytes (%) (Auto) 3.3 % Monocytes (%) (Auto) 3.5 % Eosinophils (%) (Auto) 0.0 % Basophils (%) (Auto) 0.2 % Neutrophils # (Auto) 31.8 TH/MM3 Lymphocytes # (Auto) 1.1 TH/MM3 Monocytes # (Auto) 1.2 TH/MM3 Eosinophils # (Auto) 0.0 TH/MM3 Basophils # (Auto) 0.1 TH/MM3 CBC Comment AUTO DIFF Differential Total Cells 100 Counted Neutrophils % (Manual) 65 % Band Neutrophils % 26 % Lymphocytes % 6 % Monocytes % 3 % Neutrophils # (Manual) 31.2 TH/MM3 Differential Comment FINAL DIFF MANUAL Platelet Estimate NORMAL Platelet Morphology Comment NORMAL Stomatocytes 1+ Sodium Level 135 MEQ/L Potassium Level 2.7 MEQ/L Chloride Level 85 MEQ/L Carbon Dioxide Level 37.9 MEQ/L Anion Gap 12 MEQ/L Blood Urea Nitrogen 22 MG/DL Creatinine 0.92 MG/DL Estimat Glomerular Filtration 63 ML/MIN Rate Random Glucose 162 MG/DL Calcium Level 8.6 MG/DL Total Bilirubin 0.7 MG/DL Aspartate Amino Transf 9 U/L (AST/SGOT) Alanine Aminotransferase 18 U/L (ALT/SGPT) Alkaline Phosphatase 95 U/L Total Protein 7.7 GM/DL Albumin 3.3 GM/DL Lipase 74 U/L Lactic Acid Level 1.9 mmol/L [facility] Medical Decision Making Medical Screen Exam Complete: Yes Emergency Medical Condition: Yes Medical Record Reviewed: Yes Interpretation(s) EKG reveals sinus tachycardia with occasional PVC. Heart rate 123. Nonspecific ST changes. Laboratory Tests Test 11/18/16 11/18/16 08:40 08:50 White Blood Count 34.3 TH/MM3 Red Blood Count 4.95 MIL/MM3 Hemoglobin 15.2 GM/DL Hematocrit 44.7 % Mean Corpuscular Volume 90.4 FL Mean Corpuscular Hemoglobin 30.8 PG Mean Corpuscular Hemoglobin 34.0 % Concent Red Cell Distribution Width 13.3 % Platelet Count 331 TH/MM3 Mean Platelet Volume 10.1 FL Neutrophils (%) (Auto) 93.0 % Lymphocytes (%) (Auto) 3.3 % Monocytes (%) (Auto) 3.5 % Eosinophils (%) (Auto) 0.0 % Basophils (%) (Auto) 0.2 % Neutrophils # (Auto) 31.8 TH/MM3 Lymphocytes # (Auto) 1.1 TH/MM3 Monocytes # (Auto) 1.2 TH/MM3 Eosinophils # (Auto) 0.0 TH/MM3 Basophils # (Auto) 0.1 TH/MM3 CBC Comment AUTO DIFF Differential Total Cells 100 Counted Neutrophils % (Manual) 65 % Band Neutrophils % 26 % Lymphocytes % 6 % Monocytes % 3 % Neutrophils # (Manual) 31.2 TH/MM3 Differential Comment FINAL DIFF MANUAL Platelet Estimate NORMAL Platelet Morphology Comment NORMAL Stomatocytes 1+ Sodium Level 135 MEQ/L Potassium Level 2.7 MEQ/L Chloride Level 85 MEQ/L Carbon Dioxide Level 37.9 MEQ/L Anion Gap 12 MEQ/L Blood Urea Nitrogen 22 MG/DL Creatinine 0.92 MG/DL Estimat Glomerular Filtration 63 ML/MIN Rate Random Glucose 162 MG/DL Calcium Level 8.6 MG/DL Total Bilirubin 0.7 MG/DL Aspartate Amino Transf 9 U/L (AST/SGOT) Alanine Aminotransferase 18 U/L (ALT/SGPT) Alkaline Phosphatase 95 U/L Total Protein 7.7 GM/DL Albumin 3.3 GM/DL Lipase 74 U/L Lactic Acid Level 1.9 mmol/L Last Impressions Chest X-Ray 11/18/16826 Signed Impressions: Service Date/Time: Friday, November 18, 2016 08:25 - CONCLUSION: Mild compensated cardiomegaly. Johnny Unger MD FACR Abdomen/Pelvis CT 11/18/16826 Signed Impressions: Service Date/Time: Friday, November 18, 2016 09:10 - CONCLUSION: 1. Probable mild diverticulitis in the sigmoid colon, correlation is suggested. 2. Multiple granulomas present in the spleen 3. Nonspecific 3 cm mass left kidney probably cyst but incompletely evaluated 4. 1.6 cm left adrenal nodule. Johnny Unger MD FACR Differential Diagnosis Differential diagnoses includes COPD exacerbation, bronchitis, pneumonia, constipation, partial small bowel obstruction, ovarian torsion, ovarian mass, diverticulitis, pancreatitis, atypical appendicitis. Narrative Course IV was established, labs are drawn and sent, and the patient was placed on cardiac telemetry monitoring and continuous pulse oximetry monitoring. The patient was administered Solu-Medrol 125 mg intravenously, duo nebs 2, morphine , Zofran, and IV fluids. Chest x-ray was obtained. CT of the abdomen and pelvis was obtained. Chest x-ray reveals compensated cardiomegaly. CT of the abdomen and pelvis is positive for diverticulitis. Patient's white count is elevated at 34.3 with bandemia of 26%. Therefore, the patient was administered 3 L total of IV fluids, Cipro, and Flagyl intravenously. Blood cultures were sent to lab prior to IV antibiotic administered patient. The patient does have elevated white count and tachycardia consistent with SIRS criteria and diverticulitis, therefore, patient will be admitted. The patient's potassium was also low, therefore, was replaced orally. Sepsis Criteria SIRS Criteria (2 or more): Heart rate over 90, WBC > 84647, < 4000 or > 10% bands Sepsis Criteria (SIRS+source): Infect source susp/known Criteria Outcome: Meets sepsis criteria Physician Communication Physician Communication I discussed patient with Dr. Colon who agrees with admission. Diagnosis Primary Impression: Diverticulitis Qualified Code: K57.32 - Diverticulitis of large intestine without perforation or abscess, unspecified bleeding status Additional Impression: Sepsis Qualified Code: A41.9 - Sepsis, due to unspecified organism Admitting Information Admitting Physician Requests: Admit Condition: Stable Sam Ford MD November 18, 2016 08:33
[2016-11-18] MEDS ORDERED: ATOR10TA15 PO (08:36)
[2016-11-18] MEDS ORDERED: BUPR150T3 PO (08:36)
--- NOTE | 2016-11-18 08:58 | RADRPT ---
EXAM DATE/TIME: 11/18/2016 08:25 [facility] COMPARISON: CHEST SINGLE AP, October 17, 2016, 18:29. INDICATIONS : Patient states shortness of breath. MEDICAL HISTORY : Chronic obstructive pulmonary disease. Hypertension Asthma SURGICAL HISTORY : None. ENCOUNTER: Initial ACUITY: 1 day PAIN SCORE: 3/10 LOCATION: Bilateral chest FINDINGS: Minimal bibasilar parenchymal changes are noted with mild compensated cardiomegaly. There is no over t congestive failure. The portion of the bony skeleton visualized is unremarkable. CONCLUSION: Mild compensated cardiomegaly. Johnny Unger MD FACR on November 18, 2016 at 8:55 Board Certified Radiologist. This report was verified electronically.
[2016-11-18 09:04] LABS: AUTOMATED NEUTROPHIL # 31.8 TH/MM3 (1.8-7.7); BASOPHIL # 0.1 TH/MM3 (0-0.2); BASOPHIL % 0.2 % (0.0-2.0); HEMATOCRIT 44.7 % (35.0-46.0); LYMPH % 3.3 % (9.0-44.0); LYMPHOCYTE # 1.1 TH/MM3 (1.0-4.8); MEAN CELL VOLUME 90.4 FL (80.0-100.0); MEAN CORPUSCULAR HEMOGLOBIN 30.8 PG (27.0-34.0); MONO % 3.5 % (0.0-8.0); PLATELET COUNT 331 TH/MM3 (150-450); RED BLOOD COUNT 4.95 MIL/MM3 (4.00-5.30); RED CELL DISTRIBUTION WIDTH 13.3 % (11.6-17.2); WHITE BLOOD COUNT 34.3 TH/MM3 (4.0-11.0)
[2016-11-18 09:06] LABS: HEMO FLAGS AUTO DIFF
[2016-11-18 09:22] LABS: ALKALINE PHOSPHATASE 95 U/L (45-117); ALT (GPT) 18 U/L (10-53); ANION GAP 12 MEQ/L (5-15); AST (GOT) 9 U/L (15-37); BICARBONATE 37.9 MEQ/L (21.0-32.0); BLOOD UREA NITROGEN 22 MG/DL (7-18); CHLORIDE 85 MEQ/L (98-107); GLOMERULAR FILTRATION RATE 63 ML/MIN (>89); SODIUM (NA) 135 MEQ/L (136-145); TOTAL BILIRUBIN ADULT 0.7 MG/DL (0.2-1.0)
[2016-11-18 09:24] LABS: POTASSIUM 2.7 MEQ/L (3.5-5.1)
[2016-11-18 09:31] LABS: BANDS 26 % (0-6); NEUTROPHIL # MANUAL DIFF 31.2 TH/MM3 (1.8-7.7); POLYS (SEG NEUTROPHILS) 65 % (16-70); WBC DIFF SAMPLE 100
[2016-11-18 09:32] LABS: PLATELET ESTIMATE SMEAR NORMAL (NORMAL); PLATELET MORPHOLOGY NORMAL (NORMAL); SCAN/DIFF FINAL DIFF MANUAL; STOMATOCYTES 1+ (NORMAL)
--- NOTE | 2016-11-18 09:55 | RADRPT ---
EXAM DATE/TIME: 11/18/2016 09:10 [facility] COMPARISON: No previous studies available for comparison. INDICATIONS : Patient complains of abdominal pain over the last 5 days, her last bowel movement was 5 days ago. Ab dominal pain located in the lower aspect of her abdomen bilaterally, radiates to the upper aspect of her abdomen, and is associated with mild nausea. ORAL CONTRAST: No oral contrast ingested. RADIATION DOSE: 16.58 CTDIvol (mGy) MEDICAL HISTORY : Chronic obstructive pulmonary disease. Hypertension. Gastroesophageal reflux disease.Diabetes SURGICAL HISTORY : Tubal ligation. ENCOUNTER: Initial ACUITY: 4 - 6 days PAIN SCALE: 8/10 LOCATION: Bilateral Lower quadrant TECHNIQUE: Volumetric scanning of the abdomen and pelvis was performed. Using automated exposure control and ad justment of the mA and/or kV according to patient size, radiation dose was kept as low as reasonably achievable to obtain optimal diagnostic quality images. FINDINGS: The lung base is are clear. There is no pericardial effusion. The liver is free of focal defects Multiple granulomas are present in the spleen The pancreas is unremarkable The right adrenal gland is normal. There is nodule in the left adrenal gland measuring 1.6 cm, nonsp ecific. The right kidney is unremarkable There is 8 well circumscribed low density lesion measuring 3 cm and the left kidney, incompletely dionisio luated on this noncontrast exam There is no retroperitoneal adenopathy The region of the cecum and terminal ileum unremarkable There are diverticuli in the sigmoid colon with mild perimesenteric stranding. There is no free fluid The abdominal wall is intact Review of bone windows reveals moderate degenerative changes in the lumbar spine. CONCLUSION: 1. Probable mild diverticulitis in the sigmoid colon, correlation is suggested. 2. Multiple granulomas present in the spleen 3. Nonspecific 3 cm mass left kidney probably cyst but incompletely evaluated 4. 1.6 cm left adrenal nodule. Johnny Unger MD FACR on November 18, 2016 at 9:50 Board Certified Radiologist. This report was verified electronically.
[2016-11-18] MEDS ORDERED: SODIUM CHLOR 0.9% 1000 ML INJ 1,000 ML IV ONE ×2 (10:00→10:15)
[2016-11-18] MEDS ORDERED: CIPROFLOXACIN 400 MG PREMIX 200 ML IV ONE (10:15)
[2016-11-18] MEDS ORDERED: metroNIDAZOLE 500 MG INJ 100 ML IV ONE (10:15)
[2016-11-18] MEDS ORDERED: POTASSIUM CHLORIDE 20 MEQ CONTROLLED RELEASE TAB PO ONE (10:30)
--- NOTE | 2016-11-18 10:44 | HHI.HP ---
[facility] Service Family Medicine Primary Care Physician Giulia Rosa M.D. Admission Diagnosis diverticulitis, sepsis, leukocytosis with bandemia, COPD Diagnoses: International Travel<30 Days: No Contact w/Intl Traveler<30days: No Known Affected Area: No History of Present Illness This is a 55-year-old female with past medical history significant for COPD, congestive heart failure, type 2 diabetes, depression, and GERD. Patient was brought to the hospital by EMS for multiple complaints. Her main concern is an abdominal pain that has been occurring for the last 4 days. She thought she was having a severe case of constipation as it had been several days since she had a bowel movement. Yesterday (11/18/16) she took a stool softener which did not seem to help, so she took a laxative later that day and then had a large watery bowel movement. However the pain seemed to worsen between yesterday to today, and now it was very severe. The pain is mainly in the lower abdominal quadrants, but radiates to the upper quadrants as well. Describes the pain as if her belly is following out of her. She denies any nausea or vomiting with this abdominal pain. She does admit to decreased appetite. She says she had a colonoscopy 2 months ago was told that everything was fine at that time, she is unaware being told of diverticulosis. Since being hospital should be given morphine and that has greatly helped with the pain. Her other complaint is shortness of breath due to her COPD. The last 2 months she's been sick fighting an upper respiratory infection, and for the last week her shortness of breath has worsened. She is trying to manage her shortness of breath at home with her rescue inhaler but has been unsuccessful. She's also been coughing throughout the last 2 months, which is resulted in some sternal chest pain suggestive of costochondritis. She reports that she quit smoking for the last week and is hoping to continue to do so. (Cale Colon MD R2) Review of Systems Constitutional: COMPLAINS OF: Fever, Change in appetite (decreased), DENIES: Weight gain, Weight loss, Chills Eyes: COMPLAINS OF: Blurred vision, DENIES: Vision loss Ears, nose, mouth, throat: DENIES: Throat pain, Hoarseness, Running Nose, Sinus Pain Respiratory: COMPLAINS OF: Cough, Wheezing, Sputum production, Shortness of breath Cardiovascular: COMPLAINS OF: Chest pain (costochondritis), DENIES: Palpitations, Claudication Gastrointestinal: COMPLAINS OF: Diarrhea, DENIES: Black stools, Bloody stools , Nausea, Vomiting Genitourinary: DENIES: Urinary frequency, Urinary incontinence, Hematuria, Dysuria Musculoskeletal: DENIES: Joint pain, Joint Swelling, Back pain Neurologic: COMPLAINS OF: Headache, DENIES: Abnormal gait, Seizures, Poor Balance Psychiatric: DENIES: Anxiety, Depression, Agitation (Cale Colon MD R2) Past Family Social History Past Medical History COPD CHF Restless leg syndrome Type 2 diabetes HTN dyslipidemia GERD Depression Past Surgical History Knee replacement Reported Medications Reported Meds & Active Scripts Active Duoneb (Ipratropium-Albuterol Neb) 0.5-2.5 Mg/3 Ml Neb 1 Nebule INH DIRECTED PRN Reported Atorvastatin (Atorvastatin Calcium) 10 Mg Tab 10 Mg PO HS Bupropion HCl ER 24 HR (Bupropion HCl) 150 Mg Tab 150 Mg PO DAILY Motrin Ib (Ibuprofen) 200 Mg Tab 800 Mg PO Q4H PRN Advair Diskus Inh (Fluticasone-Salmeterol Inh) 500-50 Mcg/Blist Aer 1 Puff INH BID Rinse mouth after use. Vitamin D (Cholecalciferol) 1,000 Unit Tab 1,000 Units PO BID Metformin (Metformin HCl) 500 Mg Tab 500 Mg PO BIDPC With meals Carvedilol 25 Mg Tab 25 Mg PO BID Paxil (Paroxetine HCl) 20 Mg Tab 20 Mg PO DAILY Naproxen 500 Mg Tab 500 Mg PO BID Pantoprazole (Pantoprazole Sodium) 40 Mg Tab 40 Mg PO DAILY Pramipexole (Pramipexole Dihydrochloride) 1 Mg Tab 1 Mg PO HS Singulair (Montelukast Sodium) 10 Mg Tab 10 Mg PO HS Furosemide 40 Mg Tab 40 Mg PO BID Spiriva Handihaler (Tiotropium Inh) 18 Mcg Cap 18 Mcg INH DAILY 1 capsule = 18 mcg Proair Hfa 8.5 GM Inh (Albuterol Sulfate) 90 Mcg/Act Aer 1 Puff INH Q4H PRN 108 mcg/actuation (Cale Colon MD R2) Allergies: Coded Allergies: No Known Allergies (Verified , 06/13/16) Family History Breast cancer Cervical Cancer DM AL CVA HTN Social History Live in [place] in an apartment with Daughter and granddaughter On Disability Quit smoking was a pack a day Quit alcohol 4 years ago Denies illicit drugs (Cale Colon MD R2) Physical Exam Vital Signs Vital Signs Date Time Temp Pulse Resp B/P Pulse Ox O2 Delivery O2 Flow Rate FiO2 11/18/16 10:03 91 Nasal Cannula 2 11/18/16 08:21 98.2 107 28 128/65 94 Physical Exam GENERAL: Awake, alert, pleasant 55 year-old female who is in mild respiratory distress. SKIN: Focused skin assessment warm/dry. HEAD: Atraumatic. Normocephalic. EYES: Pupils equal and round. No scleral icterus. No injection or drainage. ENT: No nasal bleeding or discharge. Upper dentures in place. NECK: Trachea midline. No JVD. CARDIOVASCULAR: Regular, tachycardic with a heart rate of 110. RESPIRATORY: No accessory muscle use. Decreased breath sounds throughout. Difficult to auscultate due to body habitus. Mild amount of wheezing noted throughout. GASTROINTESTINAL: Abdomen soft, obese, diffusely tender without rebound tenderness. Increased tenderness in the lower quadrants left worse than right MUSCULOSKELETAL: No obvious deformities. No clubbing. No cyanosis. No edema. NEUROLOGICAL: Awake and alert. No obvious cranial nerve deficits. Motor grossly within normal limits. Normal speech. PSYCHIATRIC: Appropriate mood and affect; insight and judgment normal. Laboratory Laboratory Tests Test 11/18/16 11/18/16 08:40 08:50 White Blood Count 34.3 Red Blood Count 4.95 Hemoglobin 15.2 Hematocrit 44.7 Mean Corpuscular Volume 90.4 Mean Corpuscular Hemoglobin 30.8 Mean Corpuscular Hemoglobin 34.0 Concent Red Cell Distribution Width 13.3 Platelet Count 331 Mean Platelet Volume 10.1 Neutrophils (%) (Auto) 93.0 Lymphocytes (%) (Auto) 3.3 Monocytes (%) (Auto) 3.5 Eosinophils (%) (Auto) 0.0 Basophils (%) (Auto) 0.2 Neutrophils # (Auto) 31.8 Lymphocytes # (Auto) 1.1 Monocytes # (Auto) 1.2 Eosinophils # (Auto) 0.0 Basophils # (Auto) 0.1 CBC Comment AUTO DIFF Differential Total Cells 100 Counted Neutrophils % (Manual) 65 Band Neutrophils % 26 Lymphocytes % 6 Monocytes % 3 Neutrophils # (Manual) 31.2 Differential Comment FINAL DIFF MANUAL Platelet Estimate NORMAL Platelet Morphology Comment NORMAL Stomatocytes 1+ Sodium Level 135 Potassium Level 2.7 Chloride Level 85 Carbon Dioxide Level 37.9 Anion Gap 12 Blood Urea Nitrogen 22 Creatinine 0.92 Estimat Glomerular Filtration 63 Rate Random Glucose 162 Calcium Level 8.6 Total Bilirubin 0.7 Aspartate Amino Transf 9 (AST/SGOT) Alanine Aminotransferase 18 (ALT/SGPT) Alkaline Phosphatase 95 Total Protein 7.7 Albumin 3.3 Lipase 74 Lactic Acid Level 1.9 Date/Time Procedure Status Source Growth 11/18/16 10:00 Aerobic Blood Culture Received Blood Peripheral Pending 11/18/16 10:00 Anaerobic Blood Culture Received Blood Peripheral Pending (Cale Colon MD R2) Result Diagram: 11/18/[id number]/[id number]/[id number] Imaging Last Impressions Chest X-Ray 11/18/16826 Signed Impressions: Service Date/Time: Friday, November 18, 2016 08:25 - CONCLUSION: Mild compensated cardiomegaly. Johnny Unger MD FACR Abdomen/Pelvis CT 11/18/16826 Signed Impressions: Service Date/Time: Friday, November 18, 2016 09:10 - CONCLUSION: 1. Probable mild diverticulitis in the sigmoid colon, correlation is suggested. 2. Multiple granulomas present in the spleen 3. Nonspecific 3 cm mass left kidney probably cyst but incompletely evaluated 4. 1.6 cm left adrenal nodule. Johnny Unger MD FACR (Cale Colon MD R2) Assessment and Plan Assessment and Plan This is a 55-year-old female with past medical history significant for COPD, congestive heart failure, type 2 diabetes, depression, and GERD. Being admitted for COPD exacerbation and diverticulitis. Code Status Full code Discussed Condition With WDW: Dr. Smith (Cale Colon MD R2) Attending Attestation Patient seen and examined. Case reviewed and discussed with the resident team. Agree with plan of care as discussed with me and documented in the resident note. pt seen on admission, agree with abx (Jocelynn Smith MD) Problem List: (1) Diverticulitis Status: Acute Plan: Patient complaining of five-day abdominal pain worsened today. Abdominal CT shows mild diverticulitis in the sigmoid colon. Physical exam shows tenderness to palpation. Sepsis criteria with a white blood cell count of 34.3, slightly tachycardic at 110, with source of infection being the diverticulitis. She is status post bolus 2 in the ED. She has a history of congestive heart failure we'll closely monitor fluids at this time. * Admitted to inpatient * Holding consult to GI at this time consider if no improvement in a couple days * Continue ciprofloxacin 400 mg every 12 hours * Continue metronidazole 500 mg IV every 8 hours * Tylenol 650 mg by mouth every 4 hours when necessary fever * Randolph 5/325 tablet by mouth every 4 hours when necessary pain scale 15 * Morphine 1 mg IV every 4 hours when necessary pain scale 6-10 * Zofran 4 mg IV every 6 hours * CBC, BMP ordered for the a.m. (2) COPD with acute exacerbation Status: Acute Plan: Long-standing history of COPD. Has been fighting upper respiratory infection for the last 2 months. Worsening shortness of breath for the last week. * Albuterol 2.5 mg every 2 hours when necessary shortness of breath * Duo nebs one ampule every 4 hours * Symbicort twice a day * Montelukast 10mg by mouth at bedtime * Methylprednisolone 60 mg IV every 6 hours (3) Diabetes mellitus Status: Chronic Plan: Long-standing history of type 2 diabetes. Currently being managed with metformin. * Holding metformin * Blood glucose checks per protocol * Low-dose insulin sliding scale (4) Hyperlipidemia Status: Chronic Plan: Long-standing history of hyperlipidemia * Continue atorvastatin (5) Hypertension Status: Chronic Plan: Long-standing history of hypertension * Continue carvedilol 20 mg by mouth twice a day * Continue Lasix 40 mg by mouth twice a day (6) GERD (gastroesophageal reflux disease) Status: Chronic Plan: Long-standing history of GERD * Continue home medication of Protonix 40 mg by mouth daily (7) Restless leg syndrome Status: Chronic Plan: Long-standing history of restless leg syndrome * Continue home medication of Pramipexole (8) Depression Status: Acute Plan: Long-standing history of anxiety/depression * Continue home medication of Paxil 20 mg by mouth daily * Continue home medication of Wellbutrin 150 mg by mouth daily (9) Nutrition, metabolism, and development symptoms Status: Acute Plan: Diet: Nothing by mouth at this time Fluids at 100 MLS we'll monitor closely due to congestive heart failure Monitor electrolytes and replace accordingly: Low potassium supplementing through IV Bed rest with bathroom privileges Vitals every 4 DVT prophylaxis with heparin and SCDs CODE STATUS: Full code Disposition: Pending improvement of diverticulitis and COPD exacerbation (Cale Colon MD R2) Physician Certification 2 Midnight Certification Type: Admission for Inpatient Services Order for Inpatient Services The services are ordered in accordance with Medicare regulations or non- Medicare payer requirements, as applicable. In the case of services not specified as inpatient-only, they are appropriately provided as inpatient services in accordance with the 2-midnight benchmark. Estimated LOS (days): 3 days is the estimated time the patient will need to remain in the hospital, assuming treatment plan goals are met and no additional complications. Post-Hospital Plan: Home (Cale Colon MD R2) Problem Qualifiers (1) Diverticulitis: Qualified Code: K57.32 - Diverticulitis of large intestine without perforation or abscess, unspecified bleeding status (2) Diabetes mellitus: Qualified Code: E11.8 - Type 2 diabetes mellitus with complication, without long-term current use of insulin (3) Hyperlipidemia: Qualified Code: E78.5 - Hyperlipidemia, unspecified hyperlipidemia type (4) Hypertension: Qualified Code: I10 - Essential hypertension (5) GERD (gastroesophageal reflux disease): Qualified Code: K21.9 - Gastroesophageal reflux disease, esophagitis presence not specified (6) Depression: Qualified Code: F32.9 - Depression, unspecified depression type Cale Colon MD R2 November 18, 2016 10:44 Jocelynn Smith MD November 19, 2016 12:58
[2016-11-18 11:04] LABS: BLOOD, URINE NEG (NEG); COMMENT (UR) CULT NOT INDICATED; CULTURE IF INDICATED CULT NOT INDICATED; GLUCOSE,URINE NEG (NEG); HYALINE CAST, URINE 20 /lpf (RARE); KETONE, URINE NEG (NEG); MUCUS URINE FEW /lpf (OCC); NITRITE,URINE NEG (NEG); PH, URINE 5.5 (5.0-8.5); SQUAMOUS EPITHELIAL CELL URINE <1 /hpf (0-5); URINE COLOR YELLOW (YELLW/STRAW)
[2016-11-18] MEDS: D5-1/2 NS + KCL 20 MEQ INJ 1,000 ML IV SCH ×2 (11:04→19:50)
[2016-11-18] MEDS ORDERED: RESP: ALBUTEROL 2.5 MG/3 ML NEB (PRN) INH (11:15)
[2016-11-18] MEDS ORDERED: GLUCAGON 1 MG/ML VIAL OTHER PRN (11:15)
[2016-11-18] MEDS ORDERED: ONDANSETRON HCL 4 MG/2 ML VIAL IV PRN (11:15)
[2016-11-18] MEDS ORDERED: ACETAMINOPHEN 325 MG TAB PO PRN (11:15)
[2016-11-18] MEDS ORDERED: DEXTROSE 50% IN WATER 50 ML VIAL(D50) IV PUSH PRN (11:15)
[2016-11-18] MEDS ORDERED: ACETAMINOPHEN/HYDROcodone 325 MG/5 MG TAB PO PRN (11:15)
--- NOTE | 2016-11-18 11:35 | EKG ---
Date Performed: 11/18/2016 Time Performed: 08:24:44 PTAGE: 55 years EKG: SINUS TACHYCARDIA WITH OCCASIONAL VENTRICULAR PREMATURE COMPLEXES MODERATE ST DEPRESSION AB NORMAL ECG PREVIOUS TRACING : 10/17/2016 18.05 DOCTOR: Zoran Randolph Interpretating Date/Time 11/18/2016 11:31:52
[2016-11-18] MEDS: RESP: ALBUTEROL 2.5 MG/IPRATROPIUM 0.5 MG NEB (SCH) INH ×3 (12:02→21:12)
[2016-11-18] MEDS: NICOTINE 21 MG/24 HR PATCH TD SCH (12:08)
[2016-11-18] MEDS: HEPARIN SODIUM - SQ 10,000 UNITS/ML VIAL SQ SCH ×2 (12:08→19:57)
[2016-11-18] MEDS: metroNIDAZOLE 500 MG INJ 100 ML IV SCH ×2 (15:33→21:06)
[2016-11-18] MEDS: INSULIN ASPART SUPPLEMENTAL SCALE SQ SCH ×2 (16:00→21:00)
[2016-11-18] MEDS: MORPHINE SULFATE 4 MG/ML INJ IV PRN ×2 (17:33→21:48)
[2016-11-18] MEDS: FUROSEMIDE 40 MG TAB PO SCH (17:34)
[2016-11-18 19:05] LABS: BICARBONATE 38.8 MEQ/L (21.0-32.0)
[2016-11-18] MEDS: CARVEDILOL 12.5 MG TAB PO SCH (19:55)
[2016-11-18] MEDS: ATORVASTATIN 10 MG TAB PO SCH (19:55)
[2016-11-18] MEDS: MONTELUKAST SODIUM 10 MG TAB PO SCH (19:56)
[2016-11-18] MEDS: SODIUM CHLORIDE 0.9% FLUSH 10 ML FLUSH IV FLUSH SCH (19:56)
[2016-11-18] MEDS: REMOVE OLD NICODERM (NICOTINE) PATCH T-DERMAL SCH (21:00)
[2016-11-18] MEDS: BUDESONIDE-FORMOTEROL 160/4.5 MCG INHALER INH SCH (21:04)
[2016-11-18] MEDS: PRAMIPEXOLE DIHYDROCHLORIDE 1 MG TAB PO SCH (21:04)
[2016-11-18] MEDS: CIPROFLOXACIN 400 MG PREMIX 200 ML IV SCH (23:49)
[2016-11-19] VITALS (8 sets, daily range): BP systolic 111–129; BP diastolic 64–77; PULSE 76–120; RESP 18–24; TEMP 96–97.5; O2SAT 91–94
[2016-11-19] MEDS: MORPHINE SULFATE 4 MG/ML INJ IV PRN ×4 (01:54→15:33)
[2016-11-19] MEDS: RESP: ALBUTEROL 2.5 MG/IPRATROPIUM 0.5 MG NEB (SCH) INH ×6 (03:39→19:53)
[2016-11-19] MEDS: HEPARIN SODIUM - SQ 10,000 UNITS/ML VIAL SQ SCH ×3 (03:59→21:14)
[2016-11-19] MEDS: metroNIDAZOLE 500 MG INJ 100 ML IV SCH ×3 (05:10→21:22)
[2016-11-19] MEDS: D5-1/2 NS + KCL 20 MEQ INJ 1,000 ML IV SCH ×3 (05:11→21:12)
[2016-11-19] MEDS: INSULIN ASPART SUPPLEMENTAL SCALE SQ SCH ×4 (06:04→21:37)
[2016-11-19 07:07] LABS: AUTOMATED NEUTROPHIL # 20.3 TH/MM3 (1.8-7.7); BASOPHIL % 0.1 % (0.0-2.0); HEMATOCRIT 37.3 % (35.0-46.0); HEMO FLAGS DIFF FINAL; LYMPH % 4.5 % (9.0-44.0); MEAN CELL VOLUME 90.8 FL (80.0-100.0); MEAN CORPUSCULAR HEMOGLOBIN 30.3 PG (27.0-34.0); MEAN CORPUSCULAR HGB CONC 33.4 % (32.0-36.0); MONO % 5.1 % (0.0-8.0); NEUT % 90.3 % (16.0-70.0); PLATELET COUNT 263 TH/MM3 (150-450); RED CELL DISTRIBUTION WIDTH 13.4 % (11.6-17.2); WHITE BLOOD COUNT 22.5 TH/MM3 (4.0-11.0)
[2016-11-19 07:46] LABS: BICARBONATE 39.7 MEQ/L (21.0-32.0)
[2016-11-19 07:48] LABS: POTASSIUM 2.8 MEQ/L (3.5-5.1)
[2016-11-19] MEDS: SODIUM CHLORIDE 0.9% FLUSH 10 ML FLUSH IV FLUSH SCH ×2 (09:00→21:16)
[2016-11-19] MEDS: BUDESONIDE-FORMOTEROL 160/4.5 MCG INHALER INH SCH ×2 (09:27→21:14)
[2016-11-19] MEDS: CIPROFLOXACIN 400 MG PREMIX 200 ML IV SCH ×2 (09:29→22:39)
[2016-11-19] MEDS: PANTOPRAZOLE SOD 40 MG DELAYED RELEASE TAB PO SCH (09:31)
[2016-11-19] MEDS: buPROPion HCL 150 MG SUSTAINED RELEASE TAB PO SCH (09:31)
[2016-11-19] MEDS: CARVEDILOL 12.5 MG TAB PO SCH ×2 (09:31→21:15)
[2016-11-19] MEDS: FUROSEMIDE 40 MG TAB PO SCH ×2 (09:31→17:51)
[2016-11-19] MEDS: PARoxetine HCL 20 MG TAB PO SCH (09:31)
[2016-11-19] MEDS: NICOTINE 21 MG/24 HR PATCH TD SCH (09:33)
--- NOTE | 2016-11-19 10:31 | HHI.HP ---
[facility] Service Family Medicine Primary Care Physician Giulia Rosa M.D. Admission Diagnosis diverticulitis, sepsis, leukocytosis with bandemia, COPD Diagnoses: (1) Diverticulitis Diagnosis: Principal (2) COPD with acute exacerbation Diagnosis: Principal (3) Diabetes mellitus Diagnosis: Principal (4) Hyperlipidemia Diagnosis: Principal (5) Hypertension Diagnosis: Principal (6) GERD (gastroesophageal reflux disease) Diagnosis: Principal (7) Restless leg syndrome Diagnosis: Principal (8) Depression Diagnosis: Principal (9) Nutrition, metabolism, and development symptoms Diagnosis: Principal International Travel<30 Days: No Contact w/Intl Traveler<30days: No Known Affected Area: No History of Present Illness Ms Cali is a 55-year-old female with past medical history significant for COPD, congestive heart failure, type 2 diabetes, depression, and GERD. Patient was brought to the hospital by EMS for multiple complaints. Her main concern is abdominal pain that has been occurring for the last 4 days. She thought she was having a severe case of constipation as it had been several days since she had a bowel movement. (11/18/16) she took a stool softener which did not seem to help, so she took a laxative later that day and then had a large watery bowel movement. However the pain seemed to worsen and on admission it was very severe. The pain is mainly in the lower abdominal quadrants, but radiated to the upper quadrants as well. Describes the pain as if her belly is falling out of her. She denies any nausea or vomiting with this abdominal pain. She does admit to decreased appetite. She says she had a colonoscopy 2 months ago was told that everything was fine at that time, she is unaware being told of diverticulosis. Since being in hospital she was given morphine and that has greatly helped with the pain. Her other complaint is shortness of breath due to her COPD. The last 2 months she's been sick fighting an upper respiratory infection, and for the last week her shortness of breath has worsened. She is trying to manage her shortness of breath at home with her rescue inhaler but has been unsuccessful. She's also been coughing throughout the last 2 months, which is resulted in some sternal chest pain suggestive of costochondritis. She reports that she quit smoking for the last week and is hoping to continue to do so. Review of Systems Other Constitutional: COMPLAINS OF: Fever, Change in appetite (decreased), DENIES: Weight gain, Weight loss, Chills Eyes: COMPLAINS OF: Blurred vision, DENIES: Vision loss Ears, nose, mouth, throat: DENIES: Throat pain, Hoarseness, Running Nose, Sinus Pain Respiratory: COMPLAINS OF: Cough, Wheezing, Sputum production, Shortness of breath Cardiovascular: COMPLAINS OF: Chest pain (costochondritis), DENIES: Palpitations, Claudication Gastrointestinal: COMPLAINS OF: Diarrhea, DENIES: Black stools, Bloody stools , Nausea, Vomiting Genitourinary: DENIES: Urinary frequency, Urinary incontinence, Hematuria, Dysuria Musculoskeletal: DENIES: Joint pain, Joint Swelling, Back pain Neurologic: COMPLAINS OF: Headache, DENIES: Abnormal gait, Seizures, Poor Balance Psychiatric: DENIES: Anxiety, Depression, Agitation Past Family Social History Past Medical History COPD CHF Restless leg syndrome Type 2 diabetes HTN dyslipidemia GERD Depression Past Surgical History Knee replacement Allergies: Coded Allergies: No Known Allergies (Verified , 06/13/16) Family History Breast cancer Cervical Cancer DM MT CVA HTN Social History Lives in [place] in an apartment with Daughter and granddaughter On Disability Quit smoking was a pack a day Quit alcohol 4 years ago Denies illicit drugs Physical Exam Vital Signs Vital Signs Date Time Temp Pulse Resp B/P Pulse Ox O2 Delivery O2 Flow Rate FiO2 11/19/16 08:23 93 Nasal Cannula 3.00 11/19/16 08:00 76 20 120/77 93 11/19/16 04:00 96.3 83 18 114/70 92 11/18/16 23:54 96.9 76 16 114/55 94 11/18/16 21:14 96 Nasal Cannula 3.00 11/18/16 20:30 97 11/18/16 20:00 96.9 102 18 125/81 92 11/18/16 16:00 96.5 93 24 125/75 92 11/18/16 13:00 97.8 99 133/85 93 11/18/16 12:12 98.1 102 22 132/67 95 Nasal Cannula 2 Physical Exam GENERAL: Awake, alert, pleasant 55 year-old female who is more comfortable today with her pain and breathing SKIN: Focused skin assessment warm/dry. HEAD: Atraumatic. Normocephalic. EYES: Pupils equal and round. No scleral icterus. No injection or drainage. ENT: No nasal bleeding or discharge. Upper dentures in place. NECK: Trachea midline. No JVD. CARDIOVASCULAR: Regular, tachycardic with a heart rate of 110. RESPIRATORY: No accessory muscle use. Decreased breath sounds throughout. Difficult to auscultate due to body habitus. Mild amount of wheezing noted throughout on admission, now no wheezing. GASTROINTESTINAL: Abdomen soft, obese, diffusely tender without rebound tenderness. Increased tenderness in the lower quadrants left worse than right MUSCULOSKELETAL: No obvious deformities. No clubbing. No cyanosis. No edema. NEUROLOGICAL: Awake and alert. No obvious cranial nerve deficits. Motor grossly within normal limits. Normal speech. PSYCHIATRIC: Appropriate mood and affect; insight and judgment normal. Laboratory Laboratory Tests Test 11/18/16 11/19/16 18:21 06:01 Sodium Level 138 138 Potassium Level 3.0 2.8 Chloride Level 93 91 Carbon Dioxide Level 38.8 39.7 Anion Gap 6 7 Blood Urea Nitrogen 16 12 Creatinine 0.76 0.51 Estimat Glomerular Filtration 78 124 Rate Random Glucose 181 108 Calcium Level 7.6 8.1 White Blood Count 22.5 Red Blood Count 4.10 Hemoglobin 12.4 Hematocrit 37.3 Mean Corpuscular Volume 90.8 Mean Corpuscular Hemoglobin 30.3 Mean Corpuscular Hemoglobin 33.4 Concent Red Cell Distribution Width 13.4 Platelet Count 263 Mean Platelet Volume 9.9 Neutrophils (%) (Auto) 90.3 Lymphocytes (%) (Auto) 4.5 Monocytes (%) (Auto) 5.1 Eosinophils (%) (Auto) 0.0 Basophils (%) (Auto) 0.1 Neutrophils # (Auto) 20.3 Lymphocytes # (Auto) 1.0 Monocytes # (Auto) 1.2 Eosinophils # (Auto) 0.0 Basophils # (Auto) 0.0 CBC Comment DIFF FINAL Differential Comment Date/Time Procedure Status Source Growth 11/19/16 07:30 Gram Stain Received Sputum Expectorated Sputum Pending 11/19/16 07:30 Sputum Culture Received Sputum Expectorated Sputum Pending 11/18/16 10:00 Aerobic Blood Culture Received Blood Peripheral Pending 11/18/16 10:00 Anaerobic Blood Culture Received Blood Peripheral Pending Result Diagram: 11/19/16 0601 11/19/16 06 Imaging Last Impressions Chest X-Ray 11/18/16826 Signed Impressions: Service Date/Time: Friday, November 18, 2016 08:25 - CONCLUSION: Mild compensated cardiomegaly. Johnny Unger MD FACR Abdomen/Pelvis CT 11/18/16826 Signed Impressions: Service Date/Time: Friday, November 18, 2016 09:10 - CONCLUSION: 1. Probable mild diverticulitis in the sigmoid colon, correlation is suggested. 2. Multiple granulomas present in the spleen 3. Nonspecific 3 cm mass left kidney probably cyst but incompletely evaluated 4. 1.6 cm left adrenal nodule. Johnny Unger MD FACR Assessment and Plan Assessment and Plan This is a 55-year-old female with past medical history significant for COPD, congestive heart failure, type 2 diabetes, depression, and GERD. Being admitted for COPD exacerbation and diverticulitis. Problem List: (1) Diverticulitis Status: Acute Plan: Patient complaining of five-day abdominal pain worsened today. Abdominal CT shows mild diverticulitis in the sigmoid colon. Physical exam shows tenderness to palpation. Sepsis criteria with a white blood cell count of 34.3, slightly tachycardic at 110, with source of infection being the diverticulitis. She is status post bolus 2 in the ED. She has a history of congestive heart failure we'll closely monitor fluids at this time. * Admitted to inpatient * Holding consult to GI at this time consider if no improvement in a couple days * Continue ciprofloxacin 400 mg every 12 hours * Continue metronidazole 500 mg IV every 8 hours * Tylenol 650 mg by mouth every 4 hours when necessary fever * Winslow 5/325 tablet by mouth every 4 hours when necessary pain scale 15 * Morphine 1 mg IV every 4 hours when necessary pain scale 6-10 * Zofran 4 mg IV every 6 hours * CBC, BMP ordered for the a.m. (2) COPD with acute exacerbation Status: Acute Plan: Long-standing history of COPD. Has been fighting upper respiratory infection for the last 2 months. Worsening shortness of breath for the last week. * Albuterol 2.5 mg every 2 hours when necessary shortness of breath * Duo nebs one ampule every 4 hours * Symbicort twice a day * Montelukast 10mg by mouth at bedtime * Methylprednisolone 60 mg IV every 6 hours, can decrease (3) Diabetes mellitus Status: Chronic Plan: Long-standing history of type 2 diabetes. Currently being managed with metformin. * Holding metformin * Blood glucose checks per protocol * Low-dose insulin sliding scale (4) Hyperlipidemia Status: Chronic Plan: Long-standing history of hyperlipidemia * Continue atorvastatin (5) Hypertension Status: Chronic Plan: Long-standing history of hypertension * Continue carvedilol 20 mg by mouth twice a day * Continue Lasix 40 mg by mouth twice a day (6) GERD (gastroesophageal reflux disease) Status: Chronic Plan: Long-standing history of GERD * Continue home medication of Protonix 40 mg by mouth daily (7) Restless leg syndrome Status: Chronic Plan: Long-standing history of restless leg syndrome * Continue home medication of Pramipexole (8) Depression Status: Acute Plan: Long-standing history of anxiety/depression * Continue home medication of Paxil 20 mg by mouth daily * Continue home medication of Wellbutrin 150 mg by mouth daily (9) Nutrition, metabolism, and development symptoms Status: Acute Plan: Diet: start with fluids, advance as tolerated Fluids at 100 MLS we'll monitor closely due to congestive heart failure Monitor electrolytes and replace accordingly: Low potassium supplementing through IV Bed rest with bathroom privileges Vitals every 4 DVT prophylaxis with heparin and SCDs CODE STATUS: Full code Disposition: Pending improvement of diverticulitis and COPD exacerbation Physician Certification 2 Midnight Certification Type: Admission for Inpatient Services Order for Inpatient Services The services are ordered in accordance with Medicare regulations or non- Medicare payer requirements, as applicable. In the case of services not specified as inpatient-only, they are appropriately provided as inpatient services in accordance with the 2-midnight benchmark. Estimated LOS (days): 3 3 days is the estimated time the patient will need to remain in the hospital, assuming treatment plan goals are met and no additional complications. Post-Hospital Plan: Not yet determined Problem Qualifiers (1) Diverticulitis: Qualified Code: K57.32 - Diverticulitis of large intestine without perforation or abscess, unspecified bleeding status (2) Diabetes mellitus: Qualified Code: E11.8 - Type 2 diabetes mellitus with complication, without long-term current use of insulin (3) Hyperlipidemia: Qualified Code: E78.5 - Hyperlipidemia, unspecified hyperlipidemia type (4) Hypertension: Qualified Code: I10 - Essential hypertension (5) GERD (gastroesophageal reflux disease): Qualified Code: K21.9 - Gastroesophageal reflux disease, esophagitis presence not specified (6) Depression: Qualified Code: F32.9 - Depression, unspecified depression type Jocelynn Smith MD November 19, 2016 10:31
[2016-11-19] MEDS ORDERED: POTASSIUM CHLORIDE 10 MEQ CONTROLLED RELEASE TAB PO ONE (10:45)
[2016-11-19] MEDS: methylPREDNISolone SOD SUCC 125 MG/2 ML VIAL IVP SCH ×2 (14:05→21:15)
[2016-11-19] MEDS: REMOVE OLD NICODERM (NICOTINE) PATCH T-DERMAL SCH (21:00)
[2016-11-19] MEDS: POTASSIUM CHLORIDE 10 MEQ CONTROLLED RELEASE TAB PO SCH (21:15)
[2016-11-19] MEDS: MONTELUKAST SODIUM 10 MG TAB PO SCH (21:15)
[2016-11-19] MEDS: ATORVASTATIN 10 MG TAB PO SCH (21:15)
[2016-11-19] MEDS: PRAMIPEXOLE DIHYDROCHLORIDE 1 MG TAB PO SCH (21:15)
[2016-11-20] VITALS (10 sets, daily range): BP systolic 108–148; BP diastolic 68–74; PULSE 66–86; RESP 18–22; TEMP 96.6–97.7; O2SAT 91–97
[2016-11-20] MEDS: RESP: ALBUTEROL 2.5 MG/IPRATROPIUM 0.5 MG NEB (SCH) INH ×6 (01:09→20:21)
[2016-11-20] MEDS: MORPHINE SULFATE 4 MG/ML INJ IV PRN ×2 (01:13→09:59)
[2016-11-20] MEDS: methylPREDNISolone SOD SUCC 125 MG/2 ML VIAL IVP SCH (04:10)
[2016-11-20] MEDS: metroNIDAZOLE 500 MG INJ 100 ML IV SCH (04:11)
[2016-11-20] MEDS: HEPARIN SODIUM - SQ 10,000 UNITS/ML VIAL SQ SCH ×3 (04:11→22:27)
[2016-11-20] MEDS: INSULIN ASPART SUPPLEMENTAL SCALE SQ SCH ×4 (04:13→21:00)
[2016-11-20] MEDS ORDERED: POTASSIUM CHLORIDE 10 MEQ CONTROLLED RELEASE TAB PO ONE (07:15)
[2016-11-20 09:29] LABS: AUTOMATED NEUTROPHIL # 18.2 TH/MM3 (1.8-7.7); BASOPHIL % 0.1 % (0.0-2.0); HEMATOCRIT 38.2 % (35.0-46.0); HEMO FLAGS DIFF FINAL; LYMPH % 2.4 % (9.0-44.0); LYMPHOCYTE # 0.5 TH/MM3 (1.0-4.8); MEAN CORPUSCULAR HEMOGLOBIN 29.5 PG (27.0-34.0); MEAN CORPUSCULAR HGB CONC 31.7 % (32.0-36.0); MONO % 1.2 % (0.0-8.0); NEUT % 96.3 % (16.0-70.0); PLATELET COUNT 270 TH/MM3 (150-450); RED BLOOD COUNT 4.11 MIL/MM3 (4.00-5.30); RED CELL DISTRIBUTION WIDTH 13.3 % (11.6-17.2); WHITE BLOOD COUNT 18.9 TH/MM3 (4.0-11.0)
[2016-11-20] MEDS: POTASSIUM CHLORIDE 10 MEQ CONTROLLED RELEASE TAB PO SCH ×2 (09:56→22:26)
[2016-11-20] MEDS: FUROSEMIDE 40 MG TAB PO SCH ×2 (09:56→17:44)
[2016-11-20] MEDS: buPROPion HCL 150 MG SUSTAINED RELEASE TAB PO SCH (09:56)
[2016-11-20] MEDS: PANTOPRAZOLE SOD 40 MG DELAYED RELEASE TAB PO SCH (09:56)
[2016-11-20] MEDS: PARoxetine HCL 20 MG TAB PO SCH (09:57)
[2016-11-20] MEDS: CARVEDILOL 12.5 MG TAB PO SCH ×2 (09:57→22:28)
[2016-11-20] MEDS: SODIUM CHLORIDE 0.9% FLUSH 10 ML FLUSH IV FLUSH SCH ×2 (09:57→21:00)
[2016-11-20] MEDS: NICOTINE 21 MG/24 HR PATCH TD SCH (09:57)
[2016-11-20] MEDS: BUDESONIDE-FORMOTEROL 160/4.5 MCG INHALER INH SCH ×2 (09:58→22:28)
[2016-11-20] MEDS ORDERED: ACETAMINOPHEN/HYDROcodone 325 MG/5 MG TAB PO PRN (10:00)
--- NOTE | 2016-11-20 10:03 | HHI.FPPN ---
Subjective Remarks Patient seen and examined today. Vital signs temperature 97.7 F, HR 70, RR 20, BP 135/73, Pulse ox 93% on 3L nasal canula. Breathing is better, unable to bring up anything with cough, desires mucinex. Abdominal pain mild, improving. Had bowel movement this morning. Review of systems Positive:abdominal pain Negative: headache, shortness of breath, chest pain, nausea, constipation (Cale Colon MD R2) Objective Vitals Vital Signs Date Time Temp Pulse Resp B/P Pulse Ox O2 Delivery O2 Flow Rate FiO2 11/20/16 08:00 97.7 70 20 135/73 93 11/20/16 07:54 92 Nasal Cannula 3.00 11/20/16 04:26 97.0 86 22 109/74 91 11/20/16 02:50 18 11/20/16 01:10 94 Nasal Cannula 3.00 11/20/16 00:15 97.4 82 22 108/69 94 11/19/16 20:02 97.5 89 24 129/76 92 11/19/16 16:00 89 11/19/16 16:00 96.0 78 18 112/65 94 11/19/16 15:34 91 Nasal Cannula 3.00 11/19/16 12:00 88 20 111/64 94 I/O 11/19/16 11/19/16 11/19/16 11/20/16 11/20/16 11/20/16 07:00 15:00 23:00 07:00 15:00 23:00 Intake Total 810 ml 820 ml 800 ml 360 ml Output Total 0 ml Balance 810 ml 820 ml 800 ml 360 ml Intake Oral 810 ml 820 ml 800 ml 360 ml Output Urine Total 0 ml # Voids 2 6 3 3 # Bowel Movements 0 0 (Cale Colon MD R2) Result Diagram: 11/20/16 0841 11/19/16 0601 Imaging Last Impressions Chest X-Ray 11/18/16826 Signed Impressions: Service Date/Time: Friday, November 18, 2016 08:25 - CONCLUSION: Mild compensated cardiomegaly. Johnny Unger MD FACR Abdomen/Pelvis CT 11/18/16826 Signed Impressions: Service Date/Time: Friday, November 18, 2016 09:10 - CONCLUSION: 1. Probable mild diverticulitis in the sigmoid colon, correlation is suggested. 2. Multiple granulomas present in the spleen 3. Nonspecific 3 cm mass left kidney probably cyst but incompletely evaluated 4. 1.6 cm left adrenal nodule. Johnny Unger MD FACR Objective Remarks GENERAL: Awake, alert, pleasant 55 year-old female who is in mild respiratory distress. SKIN: Focused skin assessment warm/dry. HEAD: Atraumatic. Normocephalic. EYES: Pupils equal and round. No scleral icterus. No injection or drainage. ENT: No nasal bleeding or discharge. Upper dentures in place. NECK: Trachea midline. No JVD. CARDIOVASCULAR: Regular, tachycardic with a heart rate of 110. RESPIRATORY: No accessory muscle use. Decreased breath sounds throughout. Difficult to auscultate due to body habitus. Mild amount of wheezing noted throughout. GASTROINTESTINAL: Abdomen soft, obese, diffusely tender without rebound tenderness. Increased tenderness in the lower quadrants left worse than right MUSCULOSKELETAL: No obvious deformities. No clubbing. No cyanosis. No edema. NEUROLOGICAL: Awake and alert. No obvious cranial nerve deficits. Motor grossly within normal limits. Normal speech. PSYCHIATRIC: Appropriate mood and affect; insight and judgment normal. Medications and IVs Current Medications Medications (Trade) Dose Ordered Sig/Brunilda Route Start Time Stop Time Status Last Admin (NS Flush) 2 ml UNSCH PRN IV FLUSH 11/18/16 08:30 (NS Flush) 2 ml UNSCH PRN IV FLUSH 11/18/16 11:15 Sodium Chloride 2 ml 2 ml BID IV FLUSH 11/18/16 21:00 11/19/16 21:16 Ciprofloxacin/ Dextrose 200 ml @ 200 mls/hr Q12H IV 11/18/16 23:00 11/19/16 22:39 (Flagyl 500 Mg Inj) 100 ml @ 100 mls/hr Q8HR IV 11/18/16 14:00 11/20/16 04:11 (Tylenol) 650 mg Q4H PRN PO 11/18/16 11:15 (Bland 5-325 Mg) 1 tab Q4H PRN PO 11/18/16 11:15 (Morphine Inj) 1 mg Q4H PRN IV 11/18/16 11:15 11/20/16 01:13 Ondansetron HCl 4 mg 4 mg Q6H PRN IV 11/18/16 11:15 (D5-1/2 NS + KCl 20 Meq Inj) 1,000 ml @ 100 mls/hr Q10H IV 11/18/16 11:04 11/19/16 21:12 (Heparin Inj) 5,000 units Q8H SQ 11/18/16 12:00 11/20/16 04:11 (D50w (Vial) Inj) 25 ml UNSCH PRN IV PUSH 11/18/16 11:15 (Glucagon Inj) 1 mg UNSCH PRN OTHER 11/18/16 11:15 (SoluMEDROL INJ) 60 mg Q6H IVP 11/19/16 15:00 11/20/16 04:10 (Habitrol 21 Mg Patch.24 Hr) 1 patch DAILY TD 11/18/16 12:00 11/19/16 09:33 Miscellaneous Information 1 HS T-DERMAL 11/18/16 21:00 11/19/16 21:00 (Lipitor) 10 mg HS PO 11/18/16 21:00 11/19/16 21:15 (Wellbutrin Sr) 150 mg DAILY PO 11/19/16 09:00 11/19/16 09:31 (Coreg) 25 mg BID PO 11/18/16 21:00 11/19/16 21:15 (Lasix) 40 mg BID@09,18 PO 11/18/16 18:00 11/19/16 17:51 (Singulair) 10 mg HS PO 11/18/16 21:00 11/19/16 21:15 (Protonix) 40 mg DAILY PO 11/19/16 09:00 11/19/16 09:31 (Paxil) 20 mg DAILY PO 11/19/16 09:00 11/19/16 09:31 (Mirapex) 1 mg HS PO 11/18/16 21:00 11/19/16 21:15 (Symbicort 160-4.5 Inh) 2 puff BID INH 11/18/16 21:00 11/19/16 21:14 (KCl) 20 meq BID PO 11/19/16 21:00 11/19/16 21:15 (Cale Colon MD R2) A/P Assessment and Plan This is a 55-year-old female with past medical history significant for COPD, congestive heart failure, type 2 diabetes, depression, and GERD. Being admitted for COPD exacerbation and diverticulitis. Discharge Planning Discharge this afternoon or tomorrow morning. (Cale Colon MD R2) Attending Attestation Patient seen and examined. Case reviewed and discussed with the resident team. Agree with plan of care as discussed with me and documented in the resident note. much improved overall (Jocelynn Smith MD) Problem List: (1) Diverticulitis Status: Acute Plan: Patient complaining of five-day abdominal pain worsened today. Abdominal CT shows mild diverticulitis in the sigmoid colon. Physical exam shows tenderness to palpation. Sepsis criteria with a white blood cell count of 34.3, slightly tachycardic at 110, with source of infection being the diverticulitis. She is status post bolus 2 in the ED. She has a history of congestive heart failure we'll closely monitor fluids at this time. * Admitted to inpatient * Holding consult to GI at this time consider if no improvement in a couple days * Antibiotics: change to PO ciprofloxacin 400 mg every 12 hours, metronidazole 500 mg every 8 hours * Tylenol 650 mg by mouth every 4 hours when necessary fever * Bland 5/325 tablet by mouth every 4 hours when necessary pain scale 1-5 * Bland 10/325 tablet by mouth every 4 hours when necessary pain scale 6-10 * Morphine 1 mg IV every 4 hours for breakthrough pain * Zofran 4 mg IV every 6 hours * CBC, BMP ordered for the a.m. (2) COPD with acute exacerbation Status: Acute Plan: Long-standing history of COPD. Has been fighting upper respiratory infection for the last 2 months. Worsening shortness of breath for the last week. * Albuterol 2.5 mg every 2 hours when necessary shortness of breath * Duo nebs one ampule every 4 hours * Symbicort twice a day * Montelukast 10mg by mouth at bedtime * Methylprednisolone 60 mg IV every 6 hours, can decrease (3) Diabetes mellitus Status: Chronic Plan: Long-standing history of type 2 diabetes. Currently being managed with metformin. * Holding metformin * Blood glucose checks per protocol * Low-dose insulin sliding scale (4) Hyperlipidemia Status: Chronic Plan: Long-standing history of hyperlipidemia * Continue atorvastatin (5) Hypertension Status: Chronic Plan: Long-standing history of hypertension * Continue carvedilol 20 mg by mouth twice a day * Continue Lasix 40 mg by mouth twice a day (6) GERD (gastroesophageal reflux disease) Status: Chronic Plan: Long-standing history of GERD * Continue home medication of Protonix 40 mg by mouth daily (7) Restless leg syndrome Status: Chronic Plan: Long-standing history of restless leg syndrome * Continue home medication of Pramipexole (8) Depression Status: Acute Plan: Long-standing history of anxiety/depression * Continue home medication of Paxil 20 mg by mouth daily * Continue home medication of Wellbutrin 150 mg by mouth daily (9) Nutrition, metabolism, and development symptoms Status: Acute Plan: Diabetic diet. tolerating good oral intake. Discontinue fluids. PO potassium Out of bed Vitals every 4 DVT prophylaxis with heparin and SCDs CODE STATUS: Full code Disposition: anticipate discharge this afternoon or tomorrow morning (Cale Colon MD R2) Problem Qualifiers (1) Diverticulitis: Qualified Code: K57.32 - Diverticulitis of large intestine without perforation or abscess, unspecified bleeding status (2) Diabetes mellitus: Qualified Code: E11.8 - Type 2 diabetes mellitus with complication, without long-term current use of insulin (3) Hyperlipidemia: Qualified Code: E78.5 - Hyperlipidemia, unspecified hyperlipidemia type (4) Hypertension: Qualified Code: I10 - Essential hypertension (5) GERD (gastroesophageal reflux disease): Qualified Code: K21.9 - Gastroesophageal reflux disease, esophagitis presence not specified (6) Depression: Qualified Code: F32.9 - Depression, unspecified depression type Cale Colon MD R2 November 20, 2016 10:03 Jocelynn Smith MD November 21, 2016 13:07
[2016-11-20 10:23] LABS: BICARBONATE 37.6 MEQ/L (21.0-32.0)
[2016-11-20] MEDS ORDERED: CIPR-9 PO (11:18)
[2016-11-20] MEDS ORDERED: PRED10PA2 PO (11:18)
[2016-11-20] MEDS ORDERED: METR-1 PO (11:18)
--- NOTE | 2016-11-20 11:18 | HHI.DCPOC ---
Discharge Care Plan Diagnosis: (1) COPD exacerbation (2) Diverticulitis Goals to Promote Your Health * To prevent worsening of your condition and complications * To maintain your health at the optimal level Take antibiotics to completion Directions to Meet Your Goals Take your medications as prescribed Follow your dietary instruction Follow activity as directed Keep your appointments as scheduled Take your immunizations and boosters as scheduled If your symptoms worsen call your PCP, if no PCP go to Urgent Care Center or Emergency Room Smoking is Dangerous to Your Health. Avoid second hand smoke Call the 24-hour hour crisis hotline for domestic abuse at Cale Colon MD R2 November 20, 2016 11:18
[2016-11-20] MEDS: metroNIDAZOLE 500 MG TAB PO SCH ×2 (12:07→17:44)
[2016-11-20] MEDS: predniSONE 20 MG TAB PO SCH ×2 (12:07→22:27)
[2016-11-20] MEDS: CIPROFLOXACIN 500 MG TAB PO SCH ×2 (12:07→22:28)
[2016-11-20] MEDS: guaiFENesin E.R. 600 MG TAB PO SCH ×2 (12:07→22:28)
[2016-11-20] MEDS: ACETAMINOPHEN/HYDROcodone 325 MG/10 MG TAB PO PRN ×2 (17:44→22:27)
[2016-11-20] MEDS: REMOVE OLD NICODERM (NICOTINE) PATCH T-DERMAL SCH (21:00)
[2016-11-20] MEDS: ATORVASTATIN 10 MG TAB PO SCH (22:27)
[2016-11-20] MEDS: PRAMIPEXOLE DIHYDROCHLORIDE 1 MG TAB PO SCH (22:28)
[2016-11-20] MEDS: MONTELUKAST SODIUM 10 MG TAB PO SCH (22:28)
[2016-11-21] VITALS (7 sets, daily range): BP systolic 115–130; BP diastolic 79–83; PULSE 66–93; RESP 17–22; TEMP 96.6–97; O2SAT 94–97
[2016-11-21] MEDS: RESP: ALBUTEROL 2.5 MG/IPRATROPIUM 0.5 MG NEB (SCH) INH ×2 (00:51→04:09)
[2016-11-21] MEDS: metroNIDAZOLE 500 MG TAB PO SCH ×2 (01:11→09:21)
[2016-11-21] MEDS: HEPARIN SODIUM - SQ 10,000 UNITS/ML VIAL SQ SCH ×2 (04:00→12:00)
[2016-11-21] MEDS: INSULIN ASPART SUPPLEMENTAL SCALE SQ SCH ×2 (04:06→12:47)
[2016-11-21 06:23] LABS: HEMATOCRIT 38.1 % (35.0-46.0); MEAN CELL VOLUME 92.6 FL (80.0-100.0); MEAN CORPUSCULAR HEMOGLOBIN 29.7 PG (27.0-34.0); MEAN CORPUSCULAR HGB CONC 32.1 % (32.0-36.0); PLATELET COUNT 274 TH/MM3 (150-450); RED BLOOD COUNT 4.12 MIL/MM3 (4.00-5.30); RED CELL DISTRIBUTION WIDTH 13.4 % (11.6-17.2); REVIEW FLAG FINAL; WHITE BLOOD COUNT 16.5 TH/MM3 (4.0-11.0)
[2016-11-21 06:40] LABS: BICARBONATE 40.5 MEQ/L (21.0-32.0); POTASSIUM 4.4 MEQ/L (3.5-5.1)
[2016-11-21] MEDS: predniSONE 20 MG TAB PO SCH (09:00)
[2016-11-21] MEDS: guaiFENesin E.R. 600 MG TAB PO SCH (09:20)
[2016-11-21] MEDS: CIPROFLOXACIN 500 MG TAB PO SCH (09:20)
[2016-11-21] MEDS: buPROPion HCL 150 MG SUSTAINED RELEASE TAB PO SCH (09:20)
[2016-11-21] MEDS: CARVEDILOL 12.5 MG TAB PO SCH (09:21)
[2016-11-21] MEDS: POTASSIUM CHLORIDE 10 MEQ CONTROLLED RELEASE TAB PO SCH (09:22)
[2016-11-21] MEDS: PARoxetine HCL 20 MG TAB PO SCH (09:22)
[2016-11-21] MEDS: FUROSEMIDE 40 MG TAB PO SCH (09:22)
[2016-11-21] MEDS: ACETAMINOPHEN/HYDROcodone 325 MG/10 MG TAB PO PRN (09:22)
[2016-11-21] MEDS: PANTOPRAZOLE SOD 40 MG DELAYED RELEASE TAB PO SCH (09:22)
[2016-11-21] MEDS: NICOTINE 21 MG/24 HR PATCH TD SCH (09:23)
[2016-11-21] MEDS: SODIUM CHLORIDE 0.9% FLUSH 10 ML FLUSH IV FLUSH SCH (09:24)
[2016-11-21] MEDS: BUDESONIDE-FORMOTEROL 160/4.5 MCG INHALER INH SCH (09:25)
--- NOTE | 2016-11-21 09:25 | HHI.FPPN ---
Subjective Remarks Patient was seen and examined this morning. She states her breathing is back to her baseline and she walked to the bathroom without oxygen this morning. She states that her abdominal pain has significantly improved; she still has some pain but is controlled with the by mouth medications. No new symptoms reported. She has voided and had bowel movement this hospital stay without complication. She is eating well and has already reviewed the diverticulitis diet which is recommended for her. (Jennifer Restrepo MD R1) Objective Vitals Vital Signs Date Time Temp Pulse Resp B/P Pulse Ox O2 Delivery O2 Flow Rate FiO2 11/21/16 08:00 96.9 66 22 127/79 95 11/21/16 04:11 94 Nasal Cannula 3.00 11/21/16 04:00 97.0 80 17 130/80 97 11/21/16 00:52 94 Nasal Cannula 3.00 11/21/16 00:00 96.6 82 17 124/83 96 11/20/16 23:54 16 11/20/16 20:23 96 Nasal Cannula 3.00 11/20/16 20:08 76 11/20/16 20:00 96.6 71 18 148/73 95 11/20/16 16:00 96.6 66 18 133/71 97 11/20/16 12:00 96.6 68 20 115/68 93 I/O 11/20/16 11/20/16 11/20/16 11/21/16 11/21/16 11/21/16 07:00 15:00 23:00 07:00 15:00 23:00 Intake Total 800 ml 840 ml 120 ml 480 ml Balance 800 ml 840 ml 120 ml 480 ml Intake Oral 800 ml 840 ml 120 ml 480 ml # Voids 3 12 4 # Bowel Movements 0 1 (Jennifer Restrepo MD R1) Result Diagram: 11/21/16 0552 11/21/1652 Imaging Last Impressions Chest X-Ray 11/18/16826 Signed Impressions: Service Date/Time: Friday, November 18, 2016 08:25 - CONCLUSION: Mild compensated cardiomegaly. Johnny Unger MD FACR Abdomen/Pelvis CT 11/18/16826 Signed Impressions: Service Date/Time: Friday, November 18, 2016 09:10 - CONCLUSION: 1. Probable mild diverticulitis in the sigmoid colon, correlation is suggested. 2. Multiple granulomas present in the spleen 3. Nonspecific 3 cm mass left kidney probably cyst but incompletely evaluated 4. 1.6 cm left adrenal nodule. Johnny Unger MD FACR Objective Remarks GENERAL: Awake, alert, pleasant 55 year-old female who is in no respiratory distress. She is sitting up at the side of the bed. SKIN: Skin is warm and dry with no rashes noted. HEAD: Atraumatic. Normocephalic. EYES: Pupils equal and round. No scleral icterus. No injection or drainage. ENT: No nasal bleeding or discharge. Upper dentures in place. NECK: Trachea midline. No JVD. CARDIOVASCULAR: Regular rate and rhythm without murmur, mild tachycardia RESPIRATORY: No accessory muscle use. Lungs exam noted for improved aeration and no obvious crackles or wheezes GASTROINTESTINAL: Abdomen soft, obese, with no tenderness to palpation. Liver and spleen margins are not palpable. MUSCULOSKELETAL: No obvious deformities. No clubbing. No cyanosis. No edema. NEUROLOGICAL: Awake and alert. No obvious cranial nerve deficits. Motor grossly within normal limits. Normal speech. PSYCHIATRIC: Appropriate mood and affect; insight and judgment normal. Medications and IVs Inpatient Medications Acetaminophen (Tylenol) 650 mg Q4H PRN PO FEVER; Start 11/18/16 at 11:15 Acetaminophen/ Hydrocodone Bitart ([place] 5-325 Mg) 1 tab Q4H PRN PO PAIN SCALE 1 TO 5; Start 11/20/16 at 10:00 Acetaminophen/ Hydrocodone Bitart ([place] 10-325 Mg) 1 tab Q4H PRN PO PAIN SCALE 6 TO 10 Last administered on 11/21/16 09:22; Start 11/20/16 at 10:00 Albuterol Sulfate (Albuterol Neb) 2.5 mg Q2HR NEB PRN INH SHORTNESS OF BREATH; Start 11/18/16 at 11:15 Albuterol/ Ipratropium (Duoneb Neb) 1 ampule Q4HR NEB INH Last administered on 11/21/16 04:09; Start 11/18/16 at 12:00 Atorvastatin Calcium (Lipitor) 10 mg HS PO Last administered on 11/20/16 22:27 ; Start 11/18/16 at 21:00 Budesonide/ Formoterol Fumarate (Symbicort 160-4.5 Inh) 2 puff BID INH Last administered on 11/21/16 09:25; Start 11/18/16 at 21:00 Bupropion HCl (Wellbutrin Sr) 150 mg DAILY PO Last administered on 11/21/16 09 :20; Start 11/19/16 at 09:00 Carvedilol (Coreg) 25 mg BID PO Last administered on 11/21/16 09:21; Start 11/18/16 at 21:00 Ciprofloxacin (Cipro) 500 mg Q12HR PO Last administered on 11/21/16 09:20; Start 11/20/16 at 10:00 Ciprofloxacin/ Dextrose 200 ml @ 200 mls/hr Q12H IV Last administered on 22:39; Start 11/18/16 at 23:00; Stop 11/20/16 at 09:54; Status DC Dextrose (D50w (Vial) Inj) 25 ml UNSCH PRN IV PUSH HYPOGLYCEMIA-SEE COMMENTS; Start 11/18/16 at 11:15 Furosemide (Lasix) 40 mg BID@09,18 PO Last administered on 11/21/16 09:22; Start 11/18/16 at 18:00 Glucagon (Glucagon Inj) 1 mg UNSCH PRN OTHER HYPOGLYCEMIA-SEE COMMENTS; Start 11/18/16 at 11:15 Guaifenesin (Mucinex Er) 600 mg BID PO Last administered on 11/21/16 09:20; Start 11/20/16 at 10:00 Heparin Sodium (Porcine) (Heparin Inj) 5,000 units Q8H SQ Last administered on 11/21/16 04:00; Start 11/18/16 at 12:00 Insulin Aspart (NovoLOG SUPPLEMENTAL SCALE) 1 ACHS SLIDING SCALE SQ Last administered on 11/20/16 16:00; Start 11/18/16 at 16:00 Methylprednisolone Sodium Succinate (SoluMEDROL INJ) 60 mg Q6H IVP Last administered on 11/20/16 04:10; Start 11/19/16 at 15:00; Stop 11/20/16 at 09:57 ; Status DC Methylprednisolone Sodium Succinate 125 mg 125 mg ONCE ONCE IV PUSH Last administered on 11/18/16 08:47; Start 11/18/16 at 08:30; Stop 11/18/16 at 08:31; Status DC Metronidazole (Flagyl 500 Mg Inj) 100 ml @ 100 mls/hr Q8HR IV Last administered on 11/20/16 04:11; Start 11/18/16 at 14:00; Stop 11/20/16 at 09:54 ; Status DC Metronidazole (Flagyl) 500 mg Q8H PO Last administered on 11/21/16 09:21; Start 11/20/16 at 10:00 Miscellaneous Information 1 HS T-DERMAL Last administered on 11/20/16 21:00; Start 11/18/16 at 21:00 Montelukast Sodium (Singulair) 10 mg HS PO Last administered on 11/20/16 22:28 ; Start 11/18/16 at 21:00 Morphine Sulfate (Morphine Inj) 1 mg Q4H PRN IV BREAKTHROUGH PAIN Last administered on 11/20/16 09:59; Start 11/18/16 at 11:15 Nicotine (Habitrol 21 Mg Patch.24 Hr) 1 patch DAILY TD Last administered on 09:23; Start 11/18/16 at 12:00 Ondansetron HCl (Zofran Inj) 4 mg ONCE ONCE IVP Last administered on 11/18/16 08:47; Start 11/18/16 at 08:30; Stop 11/18/16 at 08:31; Status DC Ondansetron HCl 4 mg 4 mg Q6H PRN IV NAUSEA; Start 11/18/16 at 11:15 Pantoprazole Sodium (Protonix) 40 mg DAILY PO Last administered on 11/21/16 09 :22; Start 11/19/16 at 09:00 Paroxetine HCl (Paxil) 20 mg DAILY PO Last administered on 11/21/16 09:22; Start 11/19/16 at 09:00 Potassium Chloride/Dextrose/ Sod Cl (D5-1/2 NS + KCl 20 Meq Inj) 1,000 ml @ 100 mls/hr Q10H IV Last administered on 11/19/16 21:12; Start 11/18/16 at 11:04 ; Stop 11/20/16 at 09:54; Status DC Potassium Chloride (KCl) 30 meq ONCE ONCE PO Last administered on 11/20/16 09 :56; Start 11/20/16 at 07:15; Stop 11/20/16 at 07:26; Status DC Pramipexole Dihydrochloride (Mirapex) 1 mg HS PO Last administered on 22:28; Start 11/18/16 at 21:00 Prednisone (Deltasone) 20 mg BID PO Last administered on 11/21/16 09:00; Start 11/20/16 at 10:00 Sodium Chloride (NS 1000 ml Inj) 1,000 ml @ 999 mls/hr BOLUS ONCE IV Last administered on 11/18/16 10:48; Start 11/18/16 at 10:15; Stop 11/18/16 at 11:15; Status DC Sodium Chloride (NS Flush) 2 ml UNSCH PRN IV FLUSH FLUSH AFTER USING IV ACCESS ; Start 11/18/16 at 11:15 Sodium Chloride 2 ml 2 ml BID IV FLUSH Last administered on 11/21/16 09:24; Start 11/18/16 at 21:00 (Jennifer Restrepo MD R1) Urinary Catheter: No (Jennifer Restrepo MD R1) Vascular Central Line Catheter: No (Jennifer Restrepo MD R1) A/P Assessment and Plan This is a 55-year-old female with past medical history significant for COPD, congestive heart failure, type 2 diabetes, depression, and GERD. She was admitted for management of acute diverticulitis and exacerbation of chronic COPD. Discharge Planning Discharge today to home, will continue home O2 and continue antibiotics as below (Jennifer Restrepo MD R1) Attending Attestation Patient seen and examined. Case reviewed and discussed with the resident team. Agree with plan of care as discussed with me and documented in the resident note. (Jocelynn Smith MD) Problem List: (1) Diverticulitis Status: Acute Plan: Patient's symptoms have significantly improved. Leukocytosis has improved significantly, however, patient is on antibiotics which can be complicating the trending. No fevers and abdominal pain has improved. We'll discharge home today, to continue ciprofloxacin 400 mg every 12 hours, metronidazole 500 mg every 8 hours to can complete a total course of 10 days treatment. Hospital course: * Patient presented with a five-day course of worsening abdominal pain. * Abdominal CT showed mild diverticulitis in the sigmoid colon. Physical exam was significant for tenderness to palpation of the lower abdomen. Sepsis criteria was met with a white blood cell count of 34.3, slightly tachycardic at 110, with source of infection being the diverticulitis. She is status post bolus 2 in the ED. * Admitted to inpatient * Antibiotics: Patient was initiated on Cipro and Flagyl IV on 11/18. This was switched to PO ciprofloxacin 400 mg every 12 hours, metronidazole 500 mg every 8 hours on 11/20 * Tylenol 650 mg by mouth every 4 hours when necessary fever * [place] 5/325 tablet by mouth every 4 hours when necessary pain scale 1-5 * [place] 10/325 tablet by mouth every 4 hours when necessary pain scale 6-10 * Morphine 1 mg IV every 4 hours for breakthrough pain * Zofran 4 mg IV every 6 hours * Trended CBC and BMP while inpatient (2) COPD with acute exacerbation Status: Acute Plan: Patient to continue a short-term taper of steroids as outpatient. Antibiotics for diverticulitis as above. She is to continue her home inhalers and home O2 upon discharge Hospital course: * Long-standing history of COPD. Has been fighting upper respiratory infection for the last 2 months. Worsening shortness of breath for the last week. * Albuterol 2.5 mg every 2 hours when necessary shortness of breath * Duo nebs one ampule every 4 hours * Symbicort twice a day * Montelukast 10mg by mouth at bedtime * Methylprednisolone 60 mg IV every 6 hours, transitioned to prednisone 20 mg PO twice a day on 11/20 (3) Diabetes mellitus Status: Chronic Plan: Patient was given a low-dose supplemental scale NovoLog with Accu-Cheks as inpatient. She may transition back to metformin as outpatient Hospital course: * Long-standing history of type 2 diabetes, on metformin, which was held at admission * Blood glucose checks per protocol * Low-dose insulin sliding scale (4) Hyperlipidemia Status: Chronic Plan: Long-standing history of hyperlipidemia * Continue atorvastatin (5) Hypertension Status: Chronic Plan: Long-standing history of hypertension * Continue carvedilol 20 mg by mouth twice a day * Continue Lasix 40 mg by mouth twice a day (6) GERD (gastroesophageal reflux disease) Status: Chronic Plan: Long-standing history of GERD * Continue home medication of Protonix 40 mg by mouth daily (7) Restless leg syndrome Status: Chronic Plan: Long-standing history of restless leg syndrome * Continue home medication of Pramipexole (8) Depression Status: Acute Plan: Long-standing history of anxiety/depression * Continue home medication of Paxil 20 mg by mouth daily * Continue home medication of Wellbutrin 150 mg by mouth daily (9) Nutrition, metabolism, and development symptoms Status: Acute Plan: Diabetic diet. tolerating good oral intake. PO potassium Out of bed DVT prophylaxis with heparin and SCDs CODE STATUS: Full code (Jennifer Restrepo MD R1) Problem Qualifiers (1) Diverticulitis: Qualified Code: K57.32 - Diverticulitis of large intestine without perforation or abscess, unspecified bleeding status (2) Diabetes mellitus: Qualified Code: E11.8 - Type 2 diabetes mellitus with complication, without long-term current use of insulin (3) Hyperlipidemia: Qualified Code: E78.5 - Hyperlipidemia, unspecified hyperlipidemia type (4) Hypertension: Qualified Code: I10 - Essential hypertension (5) GERD (gastroesophageal reflux disease): Qualified Code: K21.9 - Gastroesophageal reflux disease, esophagitis presence not specified (6) Depression: Qualified Code: F32.9 - Depression, unspecified depression type Jennifer Restrepo MD R1 November 21, 2016 09:25 Jocelynn Smith MD November 21, 2016 13:11
[2016-11-21] MEDS ORDERED: HYDR-3583 PO (11:24)
--- NOTE | 2016-11-21 11:55 | PD.PN.STU ---
Subjective Remarks Patient seen and examined this morning. VS stable. Breathing has returned to baseline. Abdominal pain is mild and improving. Appetite is good. ROS: Positive: abdominal pain Negative: headache, cough, shortness of breath, nausea, diarrhea, constipation Objective Vitals Vital Signs Date Time Temp Pulse Resp B/P Pulse Ox O2 Delivery O2 Flow Rate FiO2 11/21/16 08:00 96.9 66 22 127/79 95 11/21/16 04:11 94 Nasal Cannula 3.00 11/21/16 04:00 97.0 80 17 130/80 97 11/21/16 00:52 94 Nasal Cannula 3.00 11/21/16 00:00 96.6 82 17 124/83 96 11/20/16 23:54 16 11/20/16 20:23 96 Nasal Cannula 3.00 11/20/16 20:08 76 11/20/16 20:00 96.6 71 18 148/73 95 11/20/16 16:00 96.6 66 18 133/71 97 11/20/16 12:00 96.6 68 20 115/68 93 I/O 11/20/16 11/20/16 11/20/16 11/21/16 11/21/16 11/21/16 06:59 14:59 22:59 06:59 14:59 22:59 Intake Total 800 ml 840 ml 120 ml 480 ml Balance 800 ml 840 ml 120 ml 480 ml Intake Oral 800 ml 840 ml 120 ml 480 ml # Voids 3 12 4 # Bowel Movements 0 1 Result Diagram: 11/21/16 0552 11/21/16 0552 Imaging Last Impressions Chest X-Ray 11/18/16826 Signed Impressions: Service Date/Time: Friday, November 18, 2016 08:25 - CONCLUSION: Mild compensated cardiomegaly. Johnny Unger MD FACR Abdomen/Pelvis CT 11/18/16826 Signed Impressions: Service Date/Time: Friday, November 18, 2016 09:10 - CONCLUSION: 1. Probable mild diverticulitis in the sigmoid colon, correlation is suggested. 2. Multiple granulomas present in the spleen 3. Nonspecific 3 cm mass left kidney probably cyst but incompletely evaluated 4. 1.6 cm left adrenal nodule. Johnny Unger MD FACR Objective Remarks GENERAL: Awake, alert, pleasant 55 year-old female SKIN: Focused skin assessment warm/dry. HEAD: Atraumatic. Normocephalic. EYES: Pupils equal and round. No scleral icterus. No injection or drainage. ENT: No nasal bleeding or discharge. Upper dentures in place. NECK: Trachea midline. No JVD. CARDIOVASCULAR: Regular, rate and rhythm RESPIRATORY: No accessory muscle use. Decreased breath sounds throughout. Difficult to auscultate due to body habitus. GASTROINTESTINAL: Abdomen soft, obese, diffusely tender without rebound tenderness. MUSCULOSKELETAL: No obvious deformities. No clubbing. No cyanosis. No edema. NEUROLOGICAL: Awake and alert. No obvious cranial nerve deficits. Motor grossly within normal limits. Normal speech. PSYCHIATRIC: Appropriate mood and affect; insight and judgment normal. Medications and IVs Current Medications Medications (Trade) Dose Ordered Sig/Brunilda Route Start Time Stop Time Status Last Admin (NS Flush) 2 ml UNSCH PRN IV FLUSH 11/18/16 11:15 (NS Flush) 2 ml BID IV FLUSH 11/18/16 21:00 11/21/16 09:24 (Tylenol) 650 mg Q4H PRN PO 11/18/16 11:15 (Morphine Inj) 1 mg Q4H PRN IV 11/18/16 11:15 11/20/16 09:59 (Zofran Inj) 4 mg Q6H PRN IV 11/18/16 11:15 (Heparin Inj) 5,000 units Q8H SQ 11/18/16 12:00 11/21/16 04:00 (D50w (Vial) Inj) 25 ml UNSCH PRN IV PUSH 11/18/16 11:15 (Glucagon Inj) 1 mg UNSCH PRN OTHER 11/18/16 11:15 (Habitrol 21 Mg Patch.24 Hr) 1 patch DAILY TD 11/18/16 12:00 11/21/16 09:23 Miscellaneous Information 1 HS T-DERMAL 11/18/16 21:00 11/20/16 21:00 (Lipitor) 10 mg HS PO 11/18/16 21:00 11/20/16 22:27 (Wellbutrin Sr) 150 mg DAILY PO 11/19/16 09:00 11/21/16 09:20 (Coreg) 25 mg BID PO 11/18/16 21:00 11/21/16 09:21 (Lasix) 40 mg BID@09,18 PO 11/18/16 18:00 11/21/16 09:22 (Singulair) 10 mg HS PO 11/18/16 21:00 11/20/16 22:28 (Protonix) 40 mg DAILY PO 11/19/16 09:00 11/21/16 09:22 (Paxil) 20 mg DAILY PO 11/19/16 09:00 11/21/16 09:22 (Mirapex) 1 mg HS PO 11/18/16 21:00 11/20/16 22:28 (Symbicort 160-4.5 Inh) 2 puff BID INH 11/18/16 21:00 11/21/16 09:25 (KCl) 20 meq BID PO 11/19/16 21:00 11/21/16 09:22 (Mucinex Er) 600 mg BID PO 11/20/16 10:00 11/21/16 09:20 (Cipro) 500 mg Q12HR PO 11/20/16 10:00 11/21/16 09:20 (Flagyl) 500 mg Q8H PO 11/20/16 10:00 11/21/16 09:21 (Deltasone) 20 mg BID PO 11/20/16 10:00 11/21/16 09:00 ([place] 5-325 Mg) 1 tab Q4H PRN PO 11/20/16 10:00 ([place] 10-325 Mg) 1 tab Q4H PRN PO 11/20/16 10:00 11/21/16 09:22 A/P Assessment and Plan Diverticulitis: Abdominal pain is mild and improving, controlled with [place] 10/ 325 PO as needed for pain. Continue metronidazole 500mg PO Q8H for 7 days Continue ciprofloxacin 500mg PO Q12H for 7 days COPD Exacerbation: breathing has returned to baseline. Patient normally uses 2L O2 at home Continue Prednisone 10mg twice a day for 10 days. Continue home medications as prescribed. Discharge home today. Follow up with PCP in 1 week Discharge Planning Home today Arcelia Sierra November 21, 2016 11:55 Jocelynn Smith MD November 21, 2016 13:10
--- NOTE | 2016-11-21 16:17 | HHI.DS ---
Discharge Summary Admission Date November 18, 2016 at 10:31 Discharge Date: November 21, 2016 Admitting Diagnosis diverticulitis, sepsis, leukocytosis with bandemia, COPD (1) Diverticulitis Diagnosis: Principal Plan: Patient's symptoms have significantly improved. Leukocytosis has improved significantly, however, patient is on antibiotics which can be complicating the trending. No fevers and abdominal pain has improved. We'll discharge home today, to continue ciprofloxacin 400 mg every 12 hours, metronidazole 500 mg every 8 hours to can complete a total course of 10 days treatment. Hospital course: * Patient presented with a five-day course of worsening abdominal pain. * Abdominal CT showed mild diverticulitis in the sigmoid colon. Physical exam was significant for tenderness to palpation of the lower abdomen. Sepsis criteria was met with a white blood cell count of 34.3, slightly tachycardic at 110, with source of infection being the diverticulitis. She is status post bolus 2 in the ED. * Admitted to inpatient * Antibiotics: Patient was initiated on Cipro and Flagyl IV on 11/18. This was switched to PO ciprofloxacin 400 mg every 12 hours, metronidazole 500 mg every 8 hours on 11/20 * Tylenol 650 mg by mouth every 4 hours when necessary fever * Cody 5/325 tablet by mouth every 4 hours when necessary pain scale 1-5 * Cody 10/325 tablet by mouth every 4 hours when necessary pain scale 6-10 * Morphine 1 mg IV every 4 hours for breakthrough pain * Zofran 4 mg IV every 6 hours * Trended CBC and BMP while inpatient (2) COPD with acute exacerbation Diagnosis: Principal Plan: Patient to continue a short-term taper of steroids as outpatient. Antibiotics for diverticulitis as above. She is to continue her home inhalers and home O2 upon discharge Hospital course: * Long-standing history of COPD. Has been fighting upper respiratory infection for the last 2 months. Worsening shortness of breath for the last week. * Albuterol 2.5 mg every 2 hours when necessary shortness of breath * Duo nebs one ampule every 4 hours * Symbicort twice a day * Montelukast 10mg by mouth at bedtime * Methylprednisolone 60 mg IV every 6 hours, transitioned to prednisone 20 mg PO twice a day on 11/20 (3) Diabetes mellitus Diagnosis: Secondary Plan: Patient was given a low-dose supplemental scale NovoLog with Accu-Cheks as inpatient. She may transition back to metformin as outpatient Hospital course: * Long-standing history of type 2 diabetes, on metformin, which was held at admission * Blood glucose checks per protocol * Low-dose insulin sliding scale (4) Hyperlipidemia Diagnosis: Secondary Plan: Long-standing history of hyperlipidemia * Continue atorvastatin (5) Hypertension Diagnosis: Secondary Plan: Long-standing history of hypertension * Continue carvedilol 20 mg by mouth twice a day * Continue Lasix 40 mg by mouth twice a day (6) GERD (gastroesophageal reflux disease) Diagnosis: Secondary Plan: Long-standing history of GERD * Continue home medication of Protonix 40 mg by mouth daily (7) Restless leg syndrome Diagnosis: Secondary Plan: Long-standing history of restless leg syndrome * Continue home medication of Pramipexole (8) Depression Diagnosis: Secondary Plan: Long-standing history of anxiety/depression * Continue home medication of Paxil 20 mg by mouth daily * Continue home medication of Wellbutrin 150 mg by mouth daily (9) Nutrition, metabolism, and development symptoms Diagnosis: Secondary Plan: Diabetic diet. tolerating good oral intake. PO potassium Out of bed DVT prophylaxis with heparin and SCDs CODE STATUS: Full code Consultants None Brief History Ms Cali is a 55-year-old female with past medical history significant for COPD, congestive heart failure, type 2 diabetes, depression, and GERD. Patient was brought to the hospital by EMS for multiple complaints. Her main concern is abdominal pain that has been occurring for the last 4 days. She thought she was having a severe case of constipation as it had been several days since she had a bowel movement. (11/18/16) she took a stool softener which did not seem to help, so she took a laxative later that day and then had a large watery bowel movement. However the pain seemed to worsen and on admission it was very severe. The pain is mainly in the lower abdominal quadrants, but radiated to the upper quadrants as well. Describes the pain as if her belly is falling out of her. She denies any nausea or vomiting with this abdominal pain. She does admit to decreased appetite. She says she had a colonoscopy 2 months ago was told that everything was fine at that time, she is unaware being told of diverticulosis. Since being in hospital she was given morphine and that has greatly helped with the pain. Her other complaint is shortness of breath due to her COPD. The last 2 months she's been sick fighting an upper respiratory infection, and for the last week her shortness of breath has worsened. She is trying to manage her shortness of breath at home with her rescue inhaler but has been unsuccessful. She's also been coughing throughout the last 2 months, which is resulted in some sternal chest pain suggestive of costochondritis. She reports that she quit smoking for the last week and is hoping to continue to do so. CBC/BMP: 11/21/16 0552 11/21/16 0552 Significant Findings Laboratory Tests Test 11/18/16 11/19/16 11/20/16 11/21/16 18:21 06:01 08:41 05:52 Potassium Level 3.0 MEQ/L 2.8 MEQ/L (3.5-5.1) (3.5-5.1) Chloride Level 93 MEQ/L 91 MEQ/L 91 MEQ/L 96 MEQ/L (98-107) (98-107) (98-107) (98-107) Carbon Dioxide Level 38.8 MEQ/L 39.7 MEQ/L 37.6 MEQ/L 40.5 MEQ/L (21.0-32.0) (21.0-32.0) (21.0-32.0) (21.0-32.0) Estimat Glomerular Filtration 78 ML/MIN (>89) Rate Random Glucose 181 MG/DL 108 MG/DL 190 MG/DL 140 MG/DL (74-106) (74-106) (74-106) (74-106) Calcium Level 7.6 MG/DL 8.1 MG/DL (8.5-10.1) (8.5-10.1) White Blood Count 22.5 TH/MM3 18.9 TH/MM3 16.5 TH/MM3 (4.0-11.0) (4.0-11.0) (4.0-11.0) Neutrophils (%) (Auto) 90.3 % 96.3 % (16.0-70.0) (16.0-70.0) Lymphocytes (%) (Auto) 4.5 % 2.4 % (9.0-44.0) (9.0-44.0) Neutrophils # (Auto) 20.3 TH/MM3 18.2 TH/MM3 (1.8-7.7) (1.8-7.7) Monocytes # (Auto) 1.2 TH/MM3 (0-0.9) Mean Corpuscular Hemoglobin 31.7 % Concent (32.0-36.0) Lymphocytes # (Auto) 0.5 TH/MM3 (1.0-4.8) Sodium Level 135 MEQ/L (136-145) Anion Gap 3 MEQ/L (5-15) Imaging Last Impressions Chest X-Ray 11/18/16826 Signed Impressions: Service Date/Time: Friday, November 18, 2016 08:25 - CONCLUSION: Mild compensated cardiomegaly. Johnny Unger MD FACR Abdomen/Pelvis CT 11/18/16826 Signed Impressions: Service Date/Time: Friday, November 18, 2016 09:10 - CONCLUSION: 1. Probable mild diverticulitis in the sigmoid colon, correlation is suggested. 2. Multiple granulomas present in the spleen 3. Nonspecific 3 cm mass left kidney probably cyst but incompletely evaluated 4. 1.6 cm left adrenal nodule. Johnny Unger MD FACR PE at Discharge GENERAL: Awake, alert, pleasant 55 year-old female who is in no respiratory distress. She is sitting up at the side of the bed. SKIN: Skin is warm and dry with no rashes noted. HEAD: Atraumatic. Normocephalic. EYES: Pupils equal and round. No scleral icterus. No injection or drainage. ENT: No nasal bleeding or discharge. Upper dentures in place. NECK: Trachea midline. No JVD. CARDIOVASCULAR: Regular rate and rhythm without murmur, mild tachycardia RESPIRATORY: No accessory muscle use. Lungs exam noted for improved aeration and no obvious crackles or wheezes GASTROINTESTINAL: Abdomen soft, obese, with no tenderness to palpation. Liver and spleen margins are not palpable. MUSCULOSKELETAL: No obvious deformities. No clubbing. No cyanosis. No edema. NEUROLOGICAL: Awake and alert. No obvious cranial nerve deficits. Motor grossly within normal limits. Normal speech. PSYCHIATRIC: Appropriate mood and affect; insight and judgment normal. Hospital Course Patient was admitted for medical management of acute moderate severity diverticulitis as well as COPD exacerbation. She had sepsis criteria; thus patient was given IV fluid boluses in ED as well as started on broad-spectrum antibiotics for likely source which was diverticulitis. Antibiotics were Flagyl and Cipro IV. Pain control was achieved with Cody given on a pain scale as well as morphine for breakthrough. She tolerated this medical management well. Managed for her chronic medical conditions as above with home medications. She was noted to take multiple NSAIDs as outpatient, and was counseled to discontinue taking these medications given possible GI upset. In regard to COPD exacerbation, patient was reviewed on home medications as well as started on scheduled breathing treatments. She was also given Solu- Medrol initially, transition to prednisone mouth prior to discharge. She was continued on a tapered prednisone regimen at discharge. Of note, patient is oxygen dependent at home and oxygen was weaned by nasal cannula to a goal saturation of 92%. Continue home oxygen at discharge. She was discharged on day 4 in stable condition. She is to follow-up with her PCP in one week. Pt Condition on Discharge: Stable Discharge Disposition: Discharge Home Discharge Instructions DIET: Follow Instructions for: Diverticulitis Diet Activities you can perform: Regular-No Restrictions Follow up Referrals: GI/CRS Colonoscopy - 2 Weeks PCP Follow-up - 1 Week New Medications: Prednisone (48) 10 mg tab Dose Pack (Prednisone (48) 10 mg tab Dose Pack) 10 Mg Dspk 10 MG PO DIRECTED Inflammation #1 Ref 0 DSPK Ciprofloxacin (Cipro) 500 Mg Tab 500 MG PO Q12HR #14 TAB Hydrocodone-Acetaminophen (Hydrocodone-Acetaminophen) 10-325 mg Tab 1 TAB PO Q4-6H PRN PAIN #15 TAB Metronidazole (Flagyl) 500 Mg Tab 500 MG PO Q8H #21 TAB Continued Medications: Albuterol 8.5 GM Inh (Proair Hfa 8.5 GM Inh) 90 Mcg/Act Aer 1 PUFF INH Q4H 108 mcg/actuation PRN SHORTNESS OF BREATH #1 Ref 0 INHALER Atorvastatin (Atorvastatin) 10 Mg Tab 10 MG PO HS Cholesterol Management #30 Ref 0 TAB Bupropion HCl ER 24 HR (Bupropion HCl ER 24 HR) 150 Mg Tab 150 MG PO DAILY Control Depression Ref 0 TAB Carvedilol (Carvedilol) 25 Mg Tab 25 MG PO BID #60 Ref 0 TAB Cholecalciferol (Vitamin D) 1,000 Unit Tab 1000 UNITS PO BID Nutritional Supplement #1 Ref 0 BOTTLE Fluticasone-Salmeterol Inh (Advair Diskus Inh) 500-50 Mcg/Blist Aer 1 PUFF INH BID Rinse mouth after use. #1 Ref 0 INHALER Furosemide (Furosemide) 40 Mg Tab 40 MG PO BID #30 Ref 0 TAB Ipratropium-Albuterol Neb (Duoneb) 0.5-2.5 Mg/3 Ml Neb 1 NEBULE INH DIRECTED PRN DYSPNEA #180 Ref 0 NEBULE Metformin (Metformin) 500 Mg Tab 500 MG PO BIDPC With meals Blood Sugar Management #60 Ref 0 TAB Montelukast (Singulair) 10 Mg Tab 10 MG PO HS #30 Ref 0 TAB Pantoprazole (Pantoprazole) 40 Mg Tab 40 MG PO DAILY Reflux #30 Ref 0 TAB Paroxetine (Paxil) 20 Mg Tab 20 MG PO DAILY #30 Ref 0 TAB Pramipexole (Pramipexole) 1 Mg Tab 1 MG PO HS Parkinson Disease Mgmt #30 Ref 0 TAB Tiotropium Inh (Spiriva Handihaler) 18 Mcg Cap 18 MCG INH DAILY 1 capsule = 18 mcg COPD #30 Ref 0 CAP Discontinued Medications: Ibuprofen (Motrin Ib) 200 Mg Tab 800 MG PO Q4H PRN PAIN SCALE 1 TO 10 Ref 0 TAB Naproxen (Naproxen) 500 Mg Tab 500 MG PO BID #60 Ref 0 TAB Jennifer Restrepo MD R1 November 21, 2016 16:17
== END 2016-11-21 13:10 | disposition home or self-care (01) | DRG 872 ==
LOC: NEPE 08:08 → NEDA 10:31 → HOCB 12:33
PROVIDERS: ADMIT Family Medicine; ATTEND Family Medicine
DX: A41.9 Sepsis, unspecified organism (principal); Z99.81 Dependence on supplemental oxygen; K57.32 Diverticulitis of large intestine without perforation or abscess without bleeding; I11.0 Hypertensive heart disease with heart failure; I50.9 Heart failure, unspecified; J44.1 Chronic obstructive pulmonary disease with (acute) exacerbation; E11.9 Type 2 diabetes mellitus without complications; E78.5 Hyperlipidemia, unspecified; K21.9 Gastro-esophageal reflux disease without esophagitis; G25.81 Restless legs syndrome; F32.9 Major depressive disorder, single episode, unspecified; Z87.891 Personal history of nicotine dependence; K21.0 Gastro-esophageal reflux disease with esophagitis; F41.9 Anxiety disorder, unspecified; N83.8 Other noninflammatory disorders of ovary, fallopian tube and broad ligament; Z79.84 Long term (current) use of oral hypoglycemic drugs; Z80.3 Family history of malignant neoplasm of breast; Z80.49 Family history of malignant neoplasm of other genital organs; Z83.3 Family history of diabetes mellitus; Z82.3 Family history of stroke; Z96.659 Presence of unspecified artificial knee joint
CPT/HCPCS: 71010; 74176; 80048; 80053; 81001; 82948; 83605; 83690; 85007; 85025; 85027; 87040; 87070; 87077; 87186; 87205; 93005; 94150; 94640; 94664; 96361; 96374; 96375; J0744; J1644; J1815; J2270; J2405; J2930; J3480; J7030; J7512

== ENCOUNTER → 2017-04-28 | Outpatient (CLI) | payer OTHER, MEDICAID ==
[~2017-04-28] MED LIST changes: +ATOR10TA15 PO; +BUPR150T3 PO; +CIPR-9 PO; +HYDR-3583 PO; +METR-1 PO; -MOTR200T4 PO; -NAPR500T PO; +PRED10PA2 PO; -oxygen
[2017-04-28 09:10] LABS: BLOOD GAS BASE EXCESS 5.2 mmol/L (-2-2); BLOOD GAS CARBOXYHEMOGLOBIN 3.1 % (0-4); BLOOD GAS HCO3 30 mmol/L (22-26); BLOOD GAS METHEMOGLOBIN 1.1 % (0-2); BLOOD GAS O2 HGB SATURATION 91 % (90-100); BLOOD GAS OXYGEN CONTENT 15.3 Vol % (12.0-20.0); BLOOD GAS PCO2 49 mmHg (38-42); BLOOD GAS PO2 77 mmHg (61-120); BLOOD GAS TOTAL HGB 11.9 G/DL (12.0-16.0); CRITICAL VALUE NO; DRAW SITE RT RADIAL; FIO2 21 %; NUMBER OF ARTERIAL PUNCTURES 1; STAT NO; TEMP CORR TO 98.6; ULNAR PULSE PRESENT
--- NOTE | 2017-04-30 11:08 | RSPPFT ---
DATE OF PROCEDURE: 04/28/17 COMMENTS: Spirometry with FVC of 1.6, FEV1 of 0.9, FEV1/FVC ratio at 54%. A non-significant response to acutely inhaled bronchodilator noted. Diffusion capacity is 24% of predicted and normal when corrected for alveolar volume. Room air arterial blood gases show pH of 7.40, PCO2 of 49, PO2 of 77. IMPRESSION: 1. Severe airways obstruction. 2. Non-significant response to acutely inhaled bronchodilator. 3. Adequate oxygenation and alveolar ventilation.
== END ==
LOC: HRSP 08:10
PROVIDERS: ATTEND Internal Medicine Sleep Medicine
DX: R06.89 Other abnormalities of breathing (principal)
CPT/HCPCS: 36600; 82805; 94060; 94729

== ENCOUNTER 2017-10-31 09:32 | Emergency (ER) | payer OTHER, MEDICAID ==
[~2017-10-31] VITALS: Ht 167.6 cm; Wt 110.0 kg
[2017-10-31 09:37] VITALS: BP 154/67; PULSE 81; RESP 28; TEMP 98.1; O2SAT 95
[2017-10-31] MEDS ORDERED: UMEC1INH INH (09:49)
[2017-10-31] MEDS ORDERED: FURO40TA PO (09:50)
[2017-10-31] MEDS ORDERED: AUGM875T3 PO (09:51)
[2017-10-31] MEDS ORDERED: TRAM50 PO ×2 (09:51→10:09)
[2017-10-31] MEDS ORDERED: predniSONE 20 MG TAB PO ONE (10:00)
[2017-10-31] MEDS ORDERED: CYCLOBENZAPRINE HCL 10 MG TAB PO ONE (10:00)
[2017-10-31] MEDS ORDERED: ACETAMINOPHEN/HYDROcodone 325 MG/5 MG TAB PO ONE (10:00)
[2017-10-31] MEDS ORDERED: CYCL10TA PO (10:09)
--- NOTE | 2017-10-31 10:10 | PD ---
HPI . Back pain Chief Complaint: Pain: Acute or Chronic Time Seen by Provider: 09:42 Travel History International Travel<30 days: No Contact w/Intl Traveler<30days: No Traveled to known affect area: No History of Present Illness HPI Patient presents with a chief complaint of acute low back pain. She states that she was sitting on her daughter so for this morning when she bent over to pick something up. She had the sudden sensation of a pop in her back. She states that she was unable to sit back up without assistance. She comes in now complaining with persistent pain since that time in the low part of her lumbar back. She rates the pain 9/10. Pain is exacerbated by movement and relieved by being still. She denies any radiation of the pain. She does not have any neurological symptoms such as bowel or bladder incontinence or perineal anesthesia. She is not an IV drug user and is not running a fever. She reports a remote previous back injury but reports no chronic problems with her back. PFSH Past Medical History Hx Anticoagulant Therapy: No AAA: No ADD: No ADHD: No Alzheimer's Disease: No Anemia: No Arthritis: Yes Asthma: Yes Atrial Fibrillation: No Blood Disorders: No Anxiety: No Depression: No Heart Rhythm Problems: No Cancer: No Cardiac Catheterization: Yes Cardiomyopathy: No Cardiovascular Problems: Yes Cerebral Palsy: No High Cholesterol: Yes Chemotherapy: No Chest Pain: No Congestive Heart Failure: Yes Cirrhosis: No COPD: Yes Cerebrovascular Accident: No Coronary Artery Disease: No Cystic Fibrosis: No Dementia: No Developmental Delay: No Diabetes: Yes Patient Takes Glucophage: Yes Dialysis: No Diminished Hearing: No Diverticulitis: No Deep Vein Thrombosis: No Endocrine: No Fibromyalgia: No Gastrointestinal Disorders: Yes Genetic Disorder: No GERD: Yes Glaucoma: No Gout: No Genitourinary: No Headaches: No Hepatitis: No Hiatal Hernia: No Heparin Induced Thrombocytopen: No Herniated Disk: No Hypertension: Yes Immune Disorder: No Inguinal Hernia: No Implanted Vascular Access Dvce: No Insomnia: No Kidney Stones: No Musculoskeletal: Yes Neurologic: No Parkinson's Disease: No Psychiatric: No Reproductive: Yes (mass on left ovary) Respiratory: Yes Resp. Syncytial Virus (RSV): No Immunizations Current: Yes Migraines: No Myocardial Infarction: No Pancreatitis: No Pneumonia: Yes Radiation Therapy: No Renal Failure: No Schizophrenia: No Seizures: No Shingles: No Sickle Cell Disease: No Sleep Apnea: No Thyroid Disease: No Triglycerides - High: No Ulcer: No Menopausal: Yes : 4 Para: 3 Miscarriage: 0 : 1 Tubal Ligation: Yes (1982) Past Surgical History Abdominal Surgery: No AICD: No Appendectomy: No Arteriovenous Shunt: No Cardiac Surgery: No Cholecystectomy: No Coronary Artery Bypass Graft: No Coronary Stent: No Ear Surgery: No Endocrine Surgery: No Eye Surgery: Yes (CATARACTS) Genitourinary Surgery: No Gynecologic Surgery: Yes (Tubal Ligation) Hysterectomy: No Insulin Pump: No Joint Replacement: No Mastectomy: No Neurologic Surgery: No Oral Surgery: No Pacemaker: No Prostatectomy: No Thoracic Surgery: No Tonsillectomy: No Tympanostomy Tube: No Valve Replacement: No Other Surgery: Yes (total knee replacement, tubal ligation) Family History Family Hypercholesterolemia: No Social History Alcohol Use: No Tobacco Use: Yes Substance Use: No Allergies-Medications (Allergen,Severity, Reaction): Coded Allergies: No Known Allergies (Verified Adverse Reaction, Unknown, 10/31/17) Reported Meds & Prescriptions Reported Meds & Active Scripts Active Flexeril (Cyclobenzaprine HCl) 10 Mg Tab 10 Mg PO TID Ultram (Tramadol HCl) 50 Mg Tab 50 Mg PO Q4H PRN Duoneb (Ipratropium-Albuterol Neb) 0.5-2.5 Mg/3 Ml Neb 1 Nebule INH DIRECTED PRN Reported Furosemide 40 Mg Tab 40 Mg PO DAILY Incruse Ellipta Inh (Umeclidinium Valier Inh) 0.0625 Mg/Act Inh 62.5 Mcg INH DAILY Atorvastatin (Atorvastatin Calcium) 10 Mg Tab 10 Mg PO HS Bupropion HCl ER 24 HR (Bupropion HCl) 150 Mg Tab 150 Mg PO DAILY Advair Diskus Inh (Fluticasone-Salmeterol Inh) 500-50 Mcg/Blist Aer 1 Puff INH BID Rinse mouth after use. Vitamin D3 (Cholecalciferol) 1,000 Unit Tab 1,000 Units PO BID Metformin (Metformin HCl) 500 Mg Tab 500 Mg PO BIDPC With meals Carvedilol 25 Mg Tab 25 Mg PO BID Pantoprazole (Pantoprazole Sodium) 40 Mg Tab 40 Mg PO DAILY Pramipexole (Pramipexole Dihydrochloride) 1 Mg Tab 1 Mg PO HS Singulair (Montelukast Sodium) 10 Mg Tab 10 Mg PO HS Proair Hfa 8.5 GM Inh (Albuterol Sulfate) 90 Mcg/Act Aer 1 Puff INH Q4H PRN 108 mcg/actuation Review of Systems Except as stated in HPI: all other systems reviewed are Neg Physical Exam Narrative GENERAL: Awake and alert. She is wearing oxygen and has the body habitus of a patient with chronic COPD. SKIN: warm/dry. HEAD: Normocephalic. Atraumatic. EYES: Pupils equal and round. No scleral icterus. No injection or drainage. NECK: Full range of motion without pain. RESPIRATORY: Wearing oxygen but in no respiratory distress at this time. MUSCULOSKELETAL: Back is point tender in the mid back, lower lumbar region. No paraspinous muscle tenderness. Distally neurovascularly intact. NEUROLOGICAL: Awake and alert. No obvious cranial nerve deficits. Motor grossly within normal limits. Normal speech. PSYCHIATRIC: Appropriate mood and affect; insight and judgment normal. Data Data Last Documented VS Vital Signs Date Time Temp Pulse Resp B/P (MAP) Pulse Ox O2 Delivery O2 Flow Rate FiO2 10/31/17 09:37 98.1 81 28 154/67 (96) [address] Lumb Spine W/O Contrast (10/31/17 09:46) Acetamin-Hydrocod 325-5 Mg ([place] 5-325 (10/31/17 10:00) Cyclobenzaprine (Flexeril) (10/31/17 10:00) Prednisone (Deltasone) (10/31/17 10:00) MDM Medical Decision Making Medical Screen Exam Complete: Yes Emergency Medical Condition: Yes Differential Diagnosis Differential diagnosis includes but is not limited to muscular low back pain, DDD, spinal stenosis, epidural abscess, sciatica, kidney infection or stone. Narrative Course This patient presents complaining with acute low back pain which started after she bent over to pick something up. Her exam is reassuring. She has no neurological findings. Her pain is confined to the lower lumbar back. I am treating her pain in the emergency department with oral prednisone, Flexeril and [place]. CT of her L-spine is pending. Last Impressions Lumbar Spine CT 10/31/17 0946 Signed Impressions: Service Date/Time: Tuesday, October 31, 2017 10:20 - CONCLUSION: 1. No fracture or spondylolisthesis. 2. Degenerative changes lower lumbar spine greatest at L4-5. 3. Questionable nondisplaced fracture right transverse process at L5. Sal Canchola MD I will refer her to neurosurgery for follow-up. She will be discharged with prescriptions for Ultram and Flexeril. Diagnosis Primary Impression: Low back pain Qualified Codes: M54.5 - Low back pain Referrals: Ky Argueta MD Patient Instructions: General Instructions Departure Forms: Tests/Procedures Med/Other Pt SpecificInfo: Prescription(s) given Scripts Cyclobenzaprine (Flexeril) 10 Mg Tab 10 MG PO TID for Muscle Spasm, #30 TAB 0 Refills Prov: Awa Baird MD 10/31/17 Tramadol (Ultram) 50 Mg Tab 50 MG PO Q4H Y for PAIN, #12 TAB 0 Refills Prov: Awa Baird MD 10/31/17 Disposition: 01 DISCHARGE HOME Condition: Stable Awa Baird MD Oct 31, 2017 10:09
--- NOTE | 2017-10-31 11:07 | RADRPT ---
EXAM DATE/TIME: 10/31/2017 10:20 [facility] COMPARISON: No previous studies available for comparison. INDICATIONS : Trauma, fall. Back pain. RADIATION DOSE: 35.86 CTDIvol (mGy) MEDICAL HISTORY : Cardiovascular disease. Congestive heart failure. Hypertension. SURGICAL HISTORY : Tubal ligation. ENCOUNTER: Initial ACUITY: 1 day PAIN SCALE: 8/10 LOCATION: lower back TECHNIQUE: Volumetric scanning of the lumbar spine was performed. Multiplanar reconstructions in the sagittal, coronal and oblique axial planes were performed. Using automated exposure control and adjustment of the mA and/or kV according to patient size, radiation dose was kept as low as reasonably achievable t o obtain optimal diagnostic quality images. DICOM format image data is available electronically for review and comparison. FINDINGS: VERTEBRAE: Normal vertebral body height. Degenerative disease L4-5. Minimal lucency within the right transverse process at L5. ALIGNMENT: No evidence of subluxation. T12-L1: The thecal sac has a normal diameter. No evidence of disc bulge or protrusion. The neural foramina are patent bilaterally. L1-L2: The thecal sac has a normal diameter. No evidence of disc bulge or protrusion. The neural foramina are patent bilaterally. L2-L3: Mild broad-based bulge abuts the thecal sac without canal stenosis. The neural foramina are patent b ilaterally. Mild facet arthropathy. L3-L4: There is mild facet arthropathy. Mild broad-based bulge abuts the thecal sac without canal stenosis. L4-L5: Posterior disc osteophyte complex abuts the ventral thecal sac. No canal stenosis. The neural forami na are patent bilaterally. L5-S1: The thecal sac has a normal diameter. No evidence of disc bulge or protrusion. The neural foramina are patent bilaterally. CONCLUSION: 1. No fracture or spondylolisthesis. 2. Degenerative changes lower lumbar spine greatest at L4-5. 3. Questionable nondisplaced fracture right transverse process at L5. Sal Canchola MD on October 31, 2017 at 11:01 Board Certified Radiologist. This report was verified electronically.
== END 2017-10-31 11:58 | disposition home or self-care (01) ==
LOC: NEPD 09:32
DX: M54.5 Low back pain (principal); E11.9 Type 2 diabetes mellitus without complications; E78.00 Pure hypercholesterolemia, unspecified; I11.0 Hypertensive heart disease with heart failure; I50.9 Heart failure, unspecified; J44.9 Chronic obstructive pulmonary disease, unspecified; K21.9 Gastro-esophageal reflux disease without esophagitis; Z72.0 Tobacco use; Z79.84 Long term (current) use of oral hypoglycemic drugs
CPT/HCPCS: 72131; 99283; J7512

== ENCOUNTER 2017-11-10 07:36 | Emergency (ER) | payer OTHER, MEDICAID ==
[~2017-11-10] VITALS: Ht 167.6 cm; Wt 67.0 kg
[~2017-11-10 07:36] MED LIST changes: -CIPR-9 PO; +CYCL10TA PO; -HYDR-3583 PO; -METR-1 PO; -PAXI20TA PO; -PRED10PA2 PO; -SPIRCAP INH; +TRAM50 PO; +UMEC1INH INH
[2017-11-10 07:41] VITALS: BP 124/78; PULSE 81; RESP 26; TEMP 98.4; O2SAT 93
[2017-11-10 08:04] VITALS: BP 111/63; PULSE 59; RESP 24; O2SAT 96
[2017-11-10] MEDS ORDERED: AZIT250T3 PO (08:10)
[2017-11-10] MEDS ORDERED: PRED20 PO (08:10)
--- NOTE | 2017-11-10 08:11 | PD ---
HPI Chief Complaint: Respiratory Distress Time Seen by Provider: 08:06 Travel History International Travel<30 days: No Contact w/Intl Traveler<30days: No Traveled to known affect area: No History of Present Illness HPI 56-year-old female complains of shortness of breath. She has a history of COPD and asthma. She believes she has bronchitis. She reports a multiple grandchildren visiting all feeling more suffering viral syndrome/URI. Patient' s symptoms include cough, sneezing, watery eyes, body aches and pains. At home nebs every 4 hours and inhaler usage was somewhat beneficial. Patient reports subjective fever yesterday. No fever today. PFSH Past Medical History Hx Anticoagulant Therapy: No AAA: No ADD: No ADHD: No Alzheimer's Disease: No Anemia: No Arthritis: Yes Asthma: Yes Atrial Fibrillation: No Blood Disorders: No Anxiety: No Depression: No Heart Rhythm Problems: No Cancer: No Cardiac Catheterization: Yes Cardiomyopathy: No Cardiovascular Problems: Yes Cerebral Palsy: No High Cholesterol: Yes Chemotherapy: No Chest Pain: No Congestive Heart Failure: Yes Cirrhosis: No COPD: Yes Cerebrovascular Accident: No Coronary Artery Disease: No Cystic Fibrosis: No Dementia: No Developmental Delay: No Diabetes: Yes Dialysis: No Diminished Hearing: No Diverticulitis: No Deep Vein Thrombosis: No Endocrine: No Fibromyalgia: No Gastrointestinal Disorders: Yes Genetic Disorder: No GERD: Yes Glaucoma: No Gout: No Genitourinary: No Headaches: No Hepatitis: No Hiatal Hernia: No Heparin Induced Thrombocytopen: No Herniated Disk: No Hypertension: Yes Immune Disorder: No Inguinal Hernia: No Implanted Vascular Access Dvce: No Insomnia: No Kidney Stones: No Musculoskeletal: Yes Neurologic: No Parkinson's Disease: No Psychiatric: No Reproductive: Yes (mass on left ovary) Respiratory: Yes Resp. Syncytial Virus (RSV): No Immunizations Current: Yes Migraines: No Myocardial Infarction: No Pancreatitis: No Pneumonia: Yes Radiation Therapy: No Renal Failure: No Schizophrenia: No Seizures: No Shingles: No Sickle Cell Disease: No Sleep Apnea: No Thyroid Disease: No Triglycerides - High: No Ulcer: No Menopausal: Yes : 4 Para: 3 Miscarriage: 0 : 1 Tubal Ligation: Yes (1982) Past Surgical History Abdominal Surgery: No AICD: No Appendectomy: No Arteriovenous Shunt: No Cardiac Surgery: No Cholecystectomy: No Coronary Artery Bypass Graft: No Coronary Stent: No Ear Surgery: No Endocrine Surgery: No Eye Surgery: Yes (CATARACTS) Genitourinary Surgery: No Gynecologic Surgery: Yes (Tubal Ligation) Hysterectomy: No Insulin Pump: No Joint Replacement: No Mastectomy: No Neurologic Surgery: No Oral Surgery: No Pacemaker: No Prostatectomy: No Thoracic Surgery: No Tonsillectomy: No Tympanostomy Tube: No Valve Replacement: No Other Surgery: Yes (total knee replacement, tubal ligation) Family History Family Hypercholesterolemia: No Social History Alcohol Use: No Tobacco Use: Yes Substance Use: No Allergies-Medications (Allergen,Severity, Reaction): Coded Allergies: No Known Allergies (Verified Adverse Reaction, Unknown, 11/10/17) Reported Meds & Prescriptions Reported Meds & Active Scripts Active Prednisone 20 Mg Tab 40 Mg PO DAILY 4 Days Take 40 mg (2 tablets) daily for 5 days Azithromycin 250 Mg Tab 250 Mg PO DIRECTED Take 2 tabs (500 mg) on day 1 then 1 tab daily x 4 days. Flexeril (Cyclobenzaprine HCl) 10 Mg Tab 10 Mg PO TID Ultram (Tramadol HCl) 50 Mg Tab 50 Mg PO Q4H PRN Duoneb (Ipratropium-Albuterol Neb) 0.5-2.5 Mg/3 Ml Neb 1 Nebule INH DIRECTED PRN Reported Furosemide 40 Mg Tab 40 Mg PO DAILY Incruse Ellipta Inh (Umeclidinium [place] Inh) 0.0625 Mg/Act Inh 62.5 Mcg INH DAILY Atorvastatin (Atorvastatin Calcium) 10 Mg Tab 10 Mg PO HS Bupropion HCl ER 24 HR (Bupropion HCl) 150 Mg Tab 150 Mg PO DAILY Advair Diskus Inh (Fluticasone-Salmeterol Inh) 500-50 Mcg/Blist Aer 1 Puff INH BID Rinse mouth after use. Vitamin D3 (Cholecalciferol) 1,000 Unit Tab 1,000 Units PO BID Metformin (Metformin HCl) 500 Mg Tab 500 Mg PO BIDPC With meals Carvedilol 25 Mg Tab 25 Mg PO BID Pantoprazole (Pantoprazole Sodium) 40 Mg Tab 40 Mg PO DAILY Pramipexole (Pramipexole Dihydrochloride) 1 Mg Tab 1 Mg PO HS Singulair (Montelukast Sodium) 10 Mg Tab 10 Mg PO HS Proair Hfa 8.5 GM Inh (Albuterol Sulfate) 90 Mcg/Act Aer 1 Puff INH Q4H PRN 108 mcg/actuation Review of Systems Except as stated in HPI: all other systems reviewed are Neg General / Constitutional: Positive: Fever (subjective fever yesterday) Physical Exam Narrative GENERAL: 56-year-old female pleasant well-nourished well-developed Vital Signs Date Time Temp Pulse Resp B/P (MAP) Pulse Ox O2 Delivery O2 Flow Rate FiO2 11/10/17 08:04 59 24 111/63 (79) 96 Nasal Cannula 2.00 11/10/17 08:04 97 Nasal Cannula 2.00 11/10/17 07:41 98.4 81 26 124/78 (93) 93 SKIN: Warm and dry. HEAD: Atraumatic. Normocephalic. EYES: Pupils equal and round. No scleral icterus. No injection or drainage. ENT: No nasal bleeding or discharge. Mucous membranes pink and moist. NECK: Trachea midline. No JVD. CARDIOVASCULAR: Regular rate and rhythm. RESPIRATORY: Wheezing is present bilaterally. Tachypnea. GASTROINTESTINAL: Abdomen soft, non-tender, nondistended. Hepatic and splenic margins not palpable. MUSCULOSKELETAL: Extremities without clubbing, cyanosis, or edema. No obvious deformities. NEUROLOGICAL: Awake and alert. No obvious cranial nerve deficits. Motor grossly within normal limits. Five out of 5 muscle strength in the arms and legs. Normal speech. PSYCHIATRIC: Appropriate mood and affect; insight and judgment normal. Data Data Last Documented VS Vital Signs Date Time Temp Pulse Resp B/P (MAP) Pulse Ox O2 Delivery O2 Flow Rate FiO2 11/10/17 09:13 11/10/17 08:35 95 Nasal Cannula 2.00 11/10/17 08:04 59 24 11/10/17 07:41 98.4 Orders Orders Electrocardiogram (11/10/17 ) Iv Access Insert/Monitor (11/10/17 08:06) Ecg Monitoring (11/10/17 08:06) Oximetry (11/10/17 08:06) Oxygen Administration (11/10/17 08:06) Chest, Single Ap (11/10/17 08:06) Sodium Chloride 0.9% Flush (Ns Flush) (11/10/17 08:15) Methylprednisolone So Succ Inj (Solumedr (11/10/17 08:15) Albuterol-Ipratropium Neb (Duoneb Neb) (11/10/17 08:15) Ed Discharge Order (11/10/17 09:12) [facility] Medical Decision Making Medical Screen Exam Complete: Yes Emergency Medical Condition: Yes Medical Record Reviewed: Yes Differential Diagnosis COPD, pneumonia, pneumothorax Narrative Course Patient has COPD exacerbation with bronchitis. Significant improvement with breathing treatments here and Solu-Medrol. Scripts as below. Last Impressions Chest X-Ray 11/10/17 0806 Signed Impressions: Service Date/Time: Friday, November 10, 2017 08:26 - CONCLUSION: Mild atelectasis at the lung bases. Otherwise, no acute cardiopulmonary abnormality is identified. Akshat Astudillo MD Diagnosis Primary Impression: Bronchitis Additional Impressions: COPD with acute exacerbation Asthma Qualified Codes: J45.909 - Unspecified asthma, uncomplicated Atelectasis Referrals: Primary Care Physician call for appointment Med/Other Pt SpecificInfo: Prescription(s) given Scripts Prednisone (Prednisone) 20 Mg Tab 40 MG PO DAILY for 4 Days, #8 TAB 0 Refills Take 40 mg (2 tablets) daily for 5 days Prov: Truong Frost MD 11/10/17 Azithromycin (Azithromycin) 250 Mg Tab 250 MG PO DIRECTED for Infection, #6 TAB 0 Refills Take 2 tabs (500 mg) on day 1 then 1 tab daily x 4 days. Prov: Truong Frost MD 11/10/17 Disposition: 01 DISCHARGE HOME Condition: Stable Truong Frost MD Nov 10, 2017 08:10
[2017-11-10] MEDS ORDERED: SODIUM CHLORIDE 0.9% FLUSH 10 ML FLUSH IVF PRN (08:15)
[2017-11-10] MEDS ORDERED: methylPREDNISolone SOD SUCC 125 MG/2 ML VIAL IV PUSH ONE (08:15)
[2017-11-10] MEDS: RESP: ALBUTEROL 2.5 MG/IPRATROPIUM 0.5 MG NEB (SCH) INH ×2 (08:32→08:33)
[2017-11-10 08:35] VITALS: O2SAT 95
--- NOTE | 2017-11-10 08:58 | RADRPT ---
EXAM DATE/TIME: 11/10/2017 08:26 [facility] COMPARISON: CHEST SINGLE AP, November 18, 2016, 8:25. INDICATIONS : Shortness of breath. MEDICAL HISTORY : Chronic obstructive pulmonary disease. Hypertension Cardiovascular disease. Asthma SURGICAL HISTORY : None. ENCOUNTER: Initial ACUITY: 1 day PAIN SCORE: 0/10 LOCATION: Bilateral chest FINDINGS: Portable AP view of the chest demonstrates a normal-sized cardiac silhouette. EKG lines overlie the p atient. There is mild atelectasis at the lung bases but no effusion, consolidation, or pneumothorax i s appreciated. The bones and soft tissues demonstrate no acute finding. CONCLUSION: Mild atelectasis at the lung bases. Otherwise, no acute cardiopulmonary abnormality is identified. Akshat Astudillo MD on November 10, 2017 at 8:54 Board Certified Radiologist. This report was verified electronically.
--- NOTE | 2017-11-10 20:43 | EKG ---
Date Performed: 11/10/2017 Time Performed: 08:25:11 PTAGE: 56 years EKG: Sinus rhythm LOW QRS VOLTAGE IN PRECORDIAL LEADS BORDERLINE ECG PREVIOUS TRACING : 11/18/2016 08.24 Compared to previous tracing, SINUS TACHYCARDIA IS NO LONG ER PRESENT DOCTOR: Sherman Stubbs Interpretating Date/Time 11/10/2017 20:43:17
== END 2017-11-10 10:09 | disposition home or self-care (01) ==
LOC: NEPE 07:36
DX: J44.1 Chronic obstructive pulmonary disease with (acute) exacerbation (principal); E11.9 Type 2 diabetes mellitus without complications; E78.00 Pure hypercholesterolemia, unspecified; K21.9 Gastro-esophageal reflux disease without esophagitis; I50.9 Heart failure, unspecified; I11.0 Hypertensive heart disease with heart failure; Z72.0 Tobacco use; Z79.84 Long term (current) use of oral hypoglycemic drugs
CPT/HCPCS: 71045; 93005; 94640; 94664; 96374; 99284; J2930

== ENCOUNTER 2018-04-24 09:44 | Inpatient (IN) ==
[2018-04-24] MEDS ORDERED: Acetaminophen 325 MG Tablet PO ONE (10:00)
[2018-04-24 10:22] LABS: Baso # (Auto) 0.1 th/mm3 (0.0-0.2); Baso % (Auto) 0.4 % (0.0-2.0); Eos # (Auto) 0.1 th/mm3 (0.0-0.4); Eos % (Auto) 0.6 % (0.0-4.0); Hematocrit 36.2 % (35.0-46.0); Hemoglobin 12.1 gm/dL (11.6-15.3); Lymph % (Auto) 5.5 % (9.0-44.0); Mean Corpuscular HGB Conc 33.3 % (32.0-36.0); Mean Corpuscular Hemoglobin 30.3 pg (27.0-34.0); Mean Corpuscular Volume 90.9 fL (80.0-100.0); Mean Platelet Volume 9.4 fL (7.0-11.0); Mono % (Auto) 5.3 % (0.0-8.0); Neut # (Auto) 16.1 th/mm3 (1.8-7.7); Neut % (Auto) 88.2 % (16.0-70.0); Platelet Count 283 th/mm3 (150-450); Red Blood Count 3.99 mil/mm3 (4.00-5.30); Red Cell Distribution Width 13.7 % (11.6-17.2); White Blood Count 18.2 th/mm3 (4.0-11.0)
--- NOTE | 2018-04-24 10:23 | ED ---
HPI General Chief Complaint: Respiratory Symptoms Stated Complaint: Flu like symptoms Time Seen by Provider: 04/24/18 09:48 Source: patient Mode of arrival: EMS Limitations: no limitations History of Present Illness MD complaint: Reports fever Onset (ago): minute(s) (Presumably this morning) Temperature Source: oral (103) Context: Reports recent antibiotic use Associated symptoms: Reports cough Relieving factors: nothing Exacerbating factors: nothing Treatments prior to arrival fever: Reports none and antibiotics (Levaquin from ) Related Data Home Medications Medication Instructions Recorded Confirmed bupropion HCl 150 mg PO BID 03/05/18 04/24/18 metformin 750 mg PO BID 03/05/18 04/24/18 atorvastatin 10 mg PO DAILY 04/24/18 04/24/18 cyclobenzaprine 5 mg PO TID PRN 04/24/18 04/24/18 ferrous sulfate 325 mg PO DAILY 04/24/18 04/24/18 fluticasone-salmeterol [Advair 1 inh INHALATION BID 04/24/18 04/24/18 Diskus] furosemide [Lasix] 40 mg PO DAILY 04/24/18 04/24/18 montelukast [Singulair] 10 mg PO QPM 04/24/18 04/24/18 pantoprazole 40 mg PO DAILY 04/24/18 04/24/18 pramipexole 1 mg PO DAILY 04/24/18 04/24/18 Allergies Allergy/AdvReac Type Severity Reaction Status Date / Time No Known Allergies Allergy Verified 04/24/18 09:52 Review of Systems ROS: all other systems reviewed are negative [facility] Medical History Medical History Active asthma (Acute) Arthritis (Acute) CHF (congestive heart failure) (Acute) COPD (chronic obstructive pulmonary disease) (Acute) Diabetes (Acute) GERD (gastroesophageal reflux disease) (Acute) H/O cataract (Acute) RLS (restless legs syndrome) (Acute) Social History Social History Substance History: No History of Abuse Second Hand Smoke Exposure: No Smoking Status: Former smoker Tobacco Type: Cigarettes How Often Do You Have a Drink Containing Alcohol: Never Recent Travel in [facility] within the Last 8 Weeks: No Recent Out of Country Travel within the Last 8 Weeks: No Immunization History Tetanus Immunization: <5 Years Exam Const General: cooperative, healthy appearing, comfortable, no acute distress and well developed Orientation: alert, awake and oriented x3 HENMT Head: normal to inspection, normocephalic and atraumatic Eyes Alignment and Position: alignment normal and position abnormal Conjunctivae: conjunctivae normal Sclera: sclerae normal EOM: EOM intact bilaterally Neck Neck: normal visual inspection and full ROM Chest Chest: normal inspection of the chest Resp Effort & Inspection: normal respiratory effort and able to speak in complete sentences Auscultation: clear to auscultation bilaterally and diminished lung sounds Cardio Rate: tachycardic (HR 106) Rhythm: regular rhythm GI Inspection: normal to inspection Palpation: soft Back/Spine/Pelvis Cervical Spine: cervical ROM normal Thoracic/Lumbar Spine: thoraco-lumbar ROM normal Skin General: no rashes or lesions noted, turgor normal and dry skin Neuro General: alert, awake, oriented x3, moves all extremities and CN's II-XI intact bilaterally Extrem General: normal to inspection and full ROM Psych Appearance: grossly normal Mental Status: mental status grossly normal Speech and Movement: speech and movement normal Mood: congruent mood Affect: normal affect Attitude: cooperative Thought Process: normal Thought Content: normal Judgment: judgment good Course Consultations Consultation #1: Dr. Preston Richey will admit Time: 11:40 Initial Documented Vital Signs Temperature 100.1 F H 04/24/18 09:52 Pulse Rate 90 04/24/18 09:52 Respiratory Rate 29 H 04/24/18 09:52 Blood Pressure 128/73 04/24/18 09:52 Pulse Oximetry 99 04/24/18 09:52 Last Documented Vital Signs Temperature 99.9 F H 04/24/18 11:33 Pulse Rate 96 H 04/24/18 11:33 Respiratory Rate 26 H 04/24/18 11:33 Blood Pressure 93/59 L 04/24/18 11:33 Pulse Oximetry 95 04/24/18 11:33 Medical Decision Making [facility] Narrative Medical decision making narrative: This patient presents with fever associated with cough and purulent sputum. He has been having problems with for at least 3 weeks. Septic workup is in process. The patient is being treated presumptively for pneumonia with Rocephin and Zithromax. Medical Screen Exam Complete: Yes Emergency Medical Condition: Yes Differential Diagnosis Differential Diagnosis: Differential diagnosis of fever includes but is not limited to viral illness, strep throat, otitis media, pneumonia, sepsis, UTI Medical Records Medical records reviewed: Yes I reviewed the patient's medical records. Patient was seen here in the recent past with the diagnosis of bronchitis. She was treated with nebs and steroids. She was discharged with a prescription for Levaquin times 5 days. Lab Data Lab results reviewed: Yes I reviewed the patient's lab results. Result diagrams: 04/24/18 10:04/24/18 10:05 Lab Results 04/24/18 04/24/18 04/24/18 Range/Units 10:05 10:05 10:05 WBC 18.2 H (4.0-11.0) th/mm3 RBC 3.99 L (4.00-5.30) mil/mm3 Hgb 12.1 (11.6-15.3) gm/dL Hct 36.2 (35.0-46.0) % MCV 90.9 (80.0-100.0) fL MCH 30.3 (27.0-34.0) pg MCHC 33.3 (32.0-36.0) % RDW 13.7 (11.6-17.2) % Plt Count 283 (150-450) th/mm3 MPV 9.4 (7.0-11.0) fL Neut % (Auto) 88.2 H (16.0-70.0) % Lymph % (Auto) 5.5 L (9.0-44.0) % [place] % (Auto) 5.3 (0.0-8.0) % Eos % (Auto) 0.6 (0.0-4.0) % Baso % (Auto) 0.4 (0.0-2.0) % Neut # (Auto) 16.1 H (1.8-7.7) th/mm3 Lymph # (Auto) 1.0 (1.0-4.8) th/mm3 [place] # (Auto) 1.0 H (0.0-0.9) th/mm3 Eos # (Auto) 0.1 (0.0-0.4) th/mm3 Baso # (Auto) 0.1 (0.0-0.2) th/mm3 WBC Differential . Differential Comment Auto diff final Sodium 135 L (136-145) meq/L Potassium 3.5 (3.5-5.1) meq/L Chloride 89 L (98-107) meq/L Carbon Dioxide 39.6 H (21.0-32.0) meq/L Anion Gap 6 (5-15) meq/L BUN 10 (7-18) mg/dL Creatinine 0.69 (0.50-1.00) mg/dL Estimated GFR 87 L (>89) mL/min Random Glucose 99 (74-106) mg/dL Lactic Acid 1.4 (0.4-2.0) mmol/L Calcium 8.8 (8.5-10.1) mg/dL Total Bilirubin 0.3 (0.2-1.0) mg/dL AST 11 L (15-37) U/L ALT 17 (10-53) U/L Alkaline Phosphatase 87 (45-117) U/L Total Protein 8.3 H (6.4-8.2) g/dL Albumin 3.2 L (3.4-5.0) g/dL Imaging Data Attestation: I personally reviewed and interpreted this imaging study as follows : Radiologist's impression: Chest X-Ray 04/24/18 10:00 CONCLUSION: Parenchymal changes right base could be an early inflammatory process. Mild cardiomegaly. ECG Data EKG Prior to Arrival: No Attestation: I personally reviewed and interpreted this ECG as follows: (EKG shows a sinus rhythm with a. No acute STT wave changes.) Discharge Plan Discharge Disposition Patient Disposition: 30 Still Patient Discharge Details Diagnosis: Fever, Leukocytosis, Respiratory infection Physicians Team ED Provider: Awa Baird Primary Care Provider: UNKNOWN, Rxs /Orders / Referrals /Forms Prescriptions: No Action pramipexole 1 mg Tablet 1 mg PO DAILY RF: 0 furosemide [Lasix] 40 mg Tablet 40 mg PO DAILY RF: 0 atorvastatin 10 mg Tablet 10 mg PO DAILY RF: 0 pantoprazole 40 mg Tablet,Delayed Release (Dr/Ec) 40 mg PO DAILY RF: 0 ferrous sulfate 325 mg (65 mg iron) Tablet 325 mg PO DAILY RF: 0 montelukast [Singulair] 10 mg Tablet 10 mg PO QPM RF: 0 fluticasone-salmeterol [Advair Diskus] 500-50 mcg/dose Blister With Device 1 inh INHALATION BID RF: 0 cyclobenzaprine 5 mg Tablet 5 mg PO TID PRN (Reason: Muscle Pain) RF: 0 metformin 500 mg Tablet 750 mg PO BID RF: 0 bupropion HCl 150 mg Tablet Extended Release 12 Hr 150 mg PO BID RF: 0 Status ED Status: Pending Admission
[2018-04-24 10:46] LABS: Alanine Aminotransferase 17 U/L (10-53); Albumin 3.2 g/dL (3.4-5.0); Anion Gap 6 meq/L (5-15); Aspartate Aminotransferase 11 U/L (15-37); Blood Urea Nitrogen 10 mg/dL (7-18); Calcium 8.8 mg/dL (8.5-10.1); Carbon Dioxide 39.6 meq/L (21.0-32.0); Chloride 89 meq/L (98-107); Glomerular Filtration Rate 87 mL/min (>89); Glucose,Random 99 mg/dL (74-106); Potassium 3.5 meq/L (3.5-5.1); Sodium 135 meq/L (136-145)
[2018-04-24 10:49] LABS: Alkaline Phosphatase 87 U/L (45-117); Total Protein 8.3 g/dL (6.4-8.2)
[2018-04-24] MEDS ORDERED: Azithromycin 250 MG Tablet PO STA (10:54)
--- NOTE | 2018-04-24 10:59 | XR ---
EXAM DATE: 04/24/2018 10:00 AM EDT AGE/SEX: 57 years / Female INDICATIONS: Short of breath, fever, weakness and some chest discomfort CLINICAL DATA: This is the patient's initial encounter. Patient reports that signs and symptoms have been present for 2 weeks and indicates a pain score of 3/10. MEDICAL/SURGICAL HISTORY: Chronic obstructive pulmonary disease. Gastroesophageal reflux disea se. Diabetes mellitus type II. Tubal ligation. COMPARISON: C, CHEST 1V SINGLE AP, 04/13/2018. . FINDINGS: Heart is minimally enlarged. Minimal bibasilar parental changes worse on the right than the left. There is no pleural effusion or pneumothorax. The portion of the bony skeleton visualized is unremarkable. CONCLUSION: Parenchymal changes right base could be an early inflammatory process. Mild cardiomegaly. Electronically signed by: Johnny Unger MD 04/24/2018 10:58 AM EDT
[2018-04-24] MEDS ORDERED: Morphine Inj 4 MG/ML Vial IV.PUSH PRN (11:42)
[2018-04-24 11:50] LABS: Bilirubin,Urine Negative (Negative); Clarity,Urine Clear (Clear); Color,Urine Yellow (Yellw/Straw); Glucose,Urine (UA) Negative (Negative); Leukocyte Esterase,Urine Trace (Negative); Nitrite,Urine Negative (Negative); Specific Gravity,Urine 1.011 (1.002-1.035); Squamous Epithelial Cell,Urine 1 /hpf (0-5)
--- NOTE | 2018-04-24 11:52 | P.HPIM ---
History of Present Illness Primary Care Physician: UNKNOWN History of Present Illness: Mrs. Cali is a 57-year-old female. She has a past history of hyperlipidemia, diabetes, and COPD/asthma baseline. She says she does not suffer with recurrent COPD exacerbations. She never been hospitalized for COPD. She came in secondary to cough and fevers and is found to have a pneumonia. She also meets septic criteria with tachycardia, leukocytosis and pneumonia. Correlated evidence of pneumonia is present at the right base on chest x-ray. No other complaints from this patient. Thus far she is maintaining her oxygen saturations on her baseline oxygen treatment of 2 L/min via nasal cannula. Review of Systems Constitutional: No fevers, no chills no night sweats, no fatigue, no weakness Eyes: No eye pain, no blurry vision, no loss of vision ENT: No sore throat, no ear pain, no rhinorrhea Cardiovascular: No chest pain, no tachycardia, no palpitations, no shortness of breath, no syncope Respiratory: No wheezing, cough, shortness of breath Gastrointestinal: No abdominal pain, no black tarry stools, no bright red blood per rectum, no vomiting, no diarrhea Musculoskeletal: No joint pain, no muscle cramps, no stiffness Integumentary: No rash, no ulcers, no drainage Neurologic: No sensory loss, no loss of motor function, no dizziness Psychiatric: No behavioral changes, no hallucinations, no suicidal ideations [facility] - History History Provided By: Patient, [employer] / EMT - Medical History Medical History: Medical History (Last Reviewed 04/24/18 @ 10:21 by Awa Baird) Active asthma Arthritis CHF (congestive heart failure) COPD (chronic obstructive pulmonary disease) Diabetes GERD (gastroesophageal reflux disease) H/O cataract RLS (restless legs syndrome) - Surgical History Surgical History: Surgical History (Last Reviewed 04/24/18 @ 09:57 by Giselle Deras) H/O tubal ligation History of total left knee replacement - Family History Family History: Family History (Last Updated 04/24/18 @ 11:49 by Truong Richey MD) Other Osteoarthritis - Tobacco History Second Hand Smoke Exposure: No Tobacco Use In Past 30 Days: No Smoking Status: Former smoker Tobacco Type: Cigarettes - Alcohol History How Often Do You Have a Drink Containing Alcohol: Never - Substance Use History Substance History: No History of Abuse - Travel History Recent Travel in the [facility] Within the Last 8 Weeks: No Recent Travel Out of the Country Within the Last 8 Weeks: No - Immunization History Tetanus Immunization: <5 Years Medications and Allergies Active Medications: Active Medications Al Hydroxide/Mg Hydroxide (Milk Of Sally Medina) 30 ml PO Q12H PRN PRN Reason: Mild Constipation Heparin Sodium (Porcine) (Heparin Inj) 5,000 units SQ Q12HR YANI Sodium Chloride (Ns Inj) 1,000 mls @ 100 mls/hr IV.CONT .Q10H YANI Azithromycin 500 mg/ Sodium (Chloride) 250 mls @ 250 mls/hr IV.SIG Q24H YANI Ceftriaxone Sodium 1,000 mg/ (Sodium Chloride) 100 mls @ 200 mls/hr IV.SIG Q24H YANI Lactobacillus Acidophilus (Lactinex) 1 tab PO TID YANI Morphine Sulfate (Morphine Inj) 4 mg IV.PUSH Q4H PRN PRN Reason: Pain 7 to 10 Morphine Sulfate (Morphine Inj) 2 mg IV.PUSH Q4H PRN PRN Reason: Pain 3 to 6 Ondansetron HCl (Zofran Inj) 4 mg IV.PUSH Q6H PRN PRN Reason: NAUSEA OR VOMITING Pantoprazole Sodium (Protonix) 40 mg PO DAILY [facility] Allergies Allergy/AdvReac Type Severity Reaction Status Date / Time No Known Allergies Allergy Verified 04/24/18 09:52 Home Medications Medication Instructions Recorded Confirmed Type bupropion HCl 150 mg PO BID 03/05/18 04/24/18 History metformin 750 mg PO BID 03/05/18 04/24/18 History atorvastatin 10 mg PO DAILY 04/24/18 04/24/18 History cyclobenzaprine 5 mg PO TID PRN 04/24/18 04/24/18 History ferrous sulfate 325 mg PO DAILY 04/24/18 04/24/18 History fluticasone-salmeterol [Advair 1 inh INHALATION BID 04/24/18 04/24/18 History Diskus] furosemide [Lasix] 40 mg PO DAILY 04/24/18 04/24/18 History montelukast [Singulair] 10 mg PO QPM 04/24/18 04/24/18 History pantoprazole 40 mg PO DAILY 04/24/18 04/24/18 History pramipexole 1 mg PO DAILY 04/24/18 04/24/18 History Exam Vital signs: Vital Signs 04/24/18 09:52 04/24/18 10:13 04/24/18 11:33 Temperature 100.1 F H 99.9 F H Pulse Rate 90 96 H Respiratory Rate 29 H 26 H Blood Pressure 128/73 93/59 L Pulse Oximetry 99 96 95 Intake & Output 04/23/18 04/24/18 04/24/18 18:59 06:59 18:59 Weight 113.398 kg Narrative: GENERAL: NAD, A&Ox3 HEAD: Normocephalic. NECK: Supple, trachea midline. No lymphadenopathy. EYES: No scleral icterus. No injection or drainage. CARDIOVASCULAR: Regular rate and rhythm without murmurs, gallops, or rubs. RESPIRATORY: Breath sounds equal bilaterally. No accessory muscle use. Wheezing bilaterally. GASTROINTESTINAL: Abdomen soft, non-tender, nondistended. MUSCULOSKELETAL: No cyanosis, or edema. SKIN: Warm and dry. NEURO: No focal neurological deficits. Results - Labs CBC & Chem 7: 04/24/18 10:05 04/24/18 10:05 Labs: Short CBC 04/24/18 Range/Units 10:05 WBC 18.2 H (4.0-11.0) th/mm3 Hgb 12.1 (11.6-15.3) gm/dL Hct 36.2 (35.0-46.0) % Plt Count 283 (150-450) th/mm3 BMP 04/24/18 10:05 Sodium 135 L Potassium 3.5 Chloride 89 L Carbon Dioxide 39.6 H BUN 10 Creatinine 0.69 Calcium 8.8 Liver Function 04/24/18 Range/Units 10:05 Total Bilirubin 0.3 (0.2-1.0) mg/dL AST 11 L (15-37) U/L ALT 17 (10-53) U/L Alkaline Phosphatase 87 (45-117) U/L Albumin 3.2 L (3.4-5.0) g/dL - Imaging Impressions Chest X-Ray 04/24/18 10:00 CONCLUSION: Parenchymal changes right base could be an early inflammatory process. Mild cardiomegaly. Caprini VTE Risk Assessment Caprini VTE Risk Assessment: Moderate/High Risk (score >= 2) Caprini Risk Assessment Model: Point Value = 1 Point Value = 2 Point Value = 3 Point Value = 5 Age 41-60 Minor surgery BMI > 25 kg/m2 Swollen legs Varicose veins or History of unexplained or recurrent spontaneous Oral contraceptives or hormone replacement Sepsis (< 1 month) Serious lung disease, including pneumonia (< 1 month) Abnormal pulmonary function Acute myocardial infarction Congestive heart failure (< 1 month) History of inflammatory bowel disease Medical patient at bed rest Age 61-74 Arthroscopic surgery Major open surgery (> 45 min) Laparoscopic surgery (> 45 min) Malignancy Confined to bed (> 72 hours) Immobilizing plaster cast Central venous access Age >= 75 History of VTE Family history of VTE Factor V Leiden Prothrombin [id number] Lupus anticoagulant Anticardiolipin antibodies Elevated serum homocysteine Heparin-induced thrombocytopenia Other congenital or acquired thrombophilia Stroke (< 1 month) Elective arthroplasty Hip, pelvis, or leg fracture Acute spinal cord injury (< 1 month) Prophylaxis Regimen: Total Risk Factor Score Risk Level Prophylaxis Regimen 0-1 Low Early ambulation 2 Moderate Order ONE of the following: *Sequential Compression Device (SCD) *Heparin 5000 units SQ BID 3-4 Higher Order ONE of the following medications: *Heparin 5000 units SQ TID *Enoxaparin/Lovenox 40 mg SQ daily (WT < 150 kg, CrCl > 30 mL/min) *Enoxaparin/Lovenox 30 mg SQ daily (WT < 150 kg, CrCl > 10-29 mL/min) *Enoxaparin/Lovenox 30 mg SQ BID (WT < 150 kg, CrCl > 30 mL/min) AND/OR *Sequential Compression Device (SCD) 5 or more Highest Order ONE of the following medications: *Heparin 5000 units SQ TID (Preferred with Epidurals) *Enoxaparin/Lovenox 40 mg SQ daily (WT < 150 kg, CrCl > 30 mL/min) *Enoxaparin/Lovenox 30 mg SQ daily (WT < 150 kg, CrCl > 10-29 mL/min) *Enoxaparin/Lovenox 30 mg SQ BID (WT < 150 kg, CrCl > 30 mL/min) AND *Sequential Compression Device (SCD) Assessment and Plan - Plan 57-year-old female admitted secondary to community-acquired pneumonia with sepsis Abscess Follow vital signs closely Treat infections as below Monitor for any worsening Community-acquired pneumonia Rocephin Azithromycin Probiotics Oxygen supplementation as needed Follow clinically for improvement COPD Asthma Chronic Hypoxia Continue oxygen supplementation, adjust if needed, currently at baseline rate Currently patient is at baseline status Albuterol as needed Continue baseline treatments Follow for evidence of exacerbation Oral thrush Diflucan IV Nystatin Monitor for improvement Congestive heart failure Continue Lasix Follow clinically Continue baseline treatments Diabetes mellitus type 2 Follow blood sugars Insulin sliding scale Diabetic diet Gastroesophageal reflux disease Continue Protonix Cataracts Restless leg syndrome Osteoarthritis No change in baseline treatments No exacerbations of these conditions DVT prophylaxis Heparin
[2018-04-24] MEDS: Lactobacillus Acidophilus/L. Spores Tablet PO SCH ×3 (13:57→17:16)
[2018-04-24] MEDS: Morphine Inj 4 MG/ML Vial IV.PUSH PRN ×3 (13:58→21:52)
[2018-04-24] MEDS: Sod Chloride 0.9% Inj 1,000 ML IV.CONT SCH ×2 (14:01→21:46)
[2018-04-24] MEDS: Nystatin Liq 500,000 UNIT/5 ML UDC SWISH-SWAL SCH ×3 (16:11→21:44)
[2018-04-24] MEDS ORDERED: Montelukast 10 MG Tablet PO SCH (18:00)
--- NOTE | 2018-04-24 19:28 | ECG ---
Date Performed: 04/24/2018 Time Performed: 10:02:35 PTAGE: 57 years EKG: SINUS TACHYCARDIA ABNORMAL RHYTHM ECG INTERPRETATION BASED ON A DEFAULT AGE OF 40 YEARS PREVIOUS TRACING : 04/13/2018 09.36 Since the previous tracing, no significant change not ed DOCTOR: Sherman Stubbs Interpretating Date/Time 04/24/2018 19:27:47
[2018-04-24] MEDS: Heparin - SQ 10,000 UNITS/ML Vial SQ SCH (21:44)
[2018-04-24] MEDS: buPROPion 150 MG 12 HR Tablet PO SCH (21:44)
[2018-04-24] MEDS: Budesonide-Formoterol 160/4.5 MCG 6 GM Inhaler INH SCH (21:51)
[2018-04-25] MEDS: Morphine Inj 4 MG/ML Vial IV.PUSH PRN ×2 (05:24→12:03)
[2018-04-25 05:57] LABS: Baso # (Auto) 0.1 th/mm3 (0.0-0.2); Baso % (Auto) 0.6 % (0.0-2.0); Eos # (Auto) 0.1 th/mm3 (0.0-0.4); Eos % (Auto) 0.9 % (0.0-4.0); Hematocrit 31.4 % (35.0-46.0); Hemoglobin 10.5 gm/dL (11.6-15.3); Lymph # (Auto) 1.5 th/mm3 (1.0-4.8); Lymph % (Auto) 13.4 % (9.0-44.0); Mean Corpuscular HGB Conc 33.4 % (32.0-36.0); Mean Corpuscular Hemoglobin 30.8 pg (27.0-34.0); Mean Corpuscular Volume 92.2 fL (80.0-100.0); Mean Platelet Volume 9.7 fL (7.0-11.0); Mono # (Auto) 1.2 th/mm3 (0.0-0.9); Mono % (Auto) 10.7 % (0.0-8.0); Neut # (Auto) 8.6 th/mm3 (1.8-7.7); Neut % (Auto) 74.4 % (16.0-70.0); Platelet Count 233 th/mm3 (150-450); Red Cell Distribution Width 14.1 % (11.6-17.2); White Blood Count 11.5 th/mm3 (4.0-11.0)
[2018-04-25 06:25] LABS: Albumin 2.6 g/dL (3.4-5.0); Anion Gap 9 meq/L (5-15); Blood Urea Nitrogen 9 mg/dL (7-18); Calcium 7.9 mg/dL (8.5-10.1); Carbon Dioxide 35.4 meq/L (21.0-32.0); Chloride 96 meq/L (98-107); Glomerular Filtration Rate Greater Than 89 mL/min (>89); Glucose,Random 78 mg/dL (74-106); Potassium 3.2 meq/L (3.5-5.1); Sodium 140 meq/L (136-145)
[2018-04-25 06:30] LABS: Alanine Aminotransferase 11 U/L (10-53); Alkaline Phosphatase 69 U/L (45-117); Aspartate Aminotransferase 8 U/L (15-37); Total Protein 6.9 g/dL (6.4-8.2)
[2018-04-25] MEDS: Heparin - SQ 10,000 UNITS/ML Vial SQ SCH (08:03)
[2018-04-25] MEDS: buPROPion 150 MG 12 HR Tablet PO SCH (08:03)
[2018-04-25] MEDS: Lactobacillus Acidophilus/L. Spores Tablet PO SCH ×2 (08:04→12:03)
[2018-04-25] MEDS: Sod Chloride 0.9% Inj 1,000 ML IV.CONT SCH ×2 (08:04→10:41)
[2018-04-25] MEDS: Nystatin Liq 500,000 UNIT/5 ML UDC SWISH-SWAL SCH ×2 (08:05→12:03)
[2018-04-25] MEDS: Budesonide-Formoterol 160/4.5 MCG 6 GM Inhaler INH SCH (08:07)
[2018-04-25 08:09] VITALS: O2SAT 93
[2018-04-25] MEDS ORDERED: Ferrous Sulfate 325 MG Tablet PO SCH (09:00)
[2018-04-25] MEDS ORDERED: Furosemide 40 MG Tablet PO SCH (09:00)
--- NOTE | 2018-04-25 10:08 | P.PN ---
Subjective Interval history: Follow-up for COPD and, pneumonia. Patient is currently resting in bed. Doing well. She is currently on 2 L of oxygen via nasal cannula which is her baseline. No fever or chills. He is able to ambulate well. She feels that she is at her baseline. Physical Exam Vital signs: Vital Signs 04/24/18 10:13 04/24/18 11:33 04/24/18 16:00 Temperature 99.9 F H 97.9 F Pulse Rate 96 H 82 Respiratory Rate 26 H 18 Blood Pressure 93/59 L 116/69 Pulse Oximetry 96 95 94 L 04/24/18 18:25 04/24/18 18:26 04/24/18 20:00 Temperature 98.8 F Pulse Rate 104 H 94 H Respiratory Rate 20 17 Blood Pressure 109/61 Pulse Oximetry 91 L 93 L 04/24/18 21:50 04/25/18 00:00 04/25/18 04:00 Temperature 98.1 F 98.4 F Pulse Rate 100 H 99 H 96 H Respiratory Rate 20 17 17 Blood Pressure 104/58 L 99/54 L Pulse Oximetry 92 L 91 L 90 L 04/25/18 08:00 Temperature 98.2 F Pulse Rate 98 H Respiratory Rate 17 Blood Pressure 113/66 Pulse Oximetry 93 L Intake & Output 04/24/18 04/25/18 04/25/18 18:59 06:59 18:59 Intake Total 100 / 100 2175 / 2175 Balance 100 / 100 2175 / 2175 Weight 113.398 kg 114.9 kg Intake: IV 100 / 100 1200 / 1200 NS Inj 1,000 ML @ 100 mls/hr IV 1000 / 1000 .CONT .Q10H YANI Rx#:[id number] Diflucan 400 mg Premix Bag 200 200 / 200 ML @ 100 mls/hr IV.SIG Q24H YANI Rx#:[id number] Rocephin Inj 2,000 MG In NS Inj 100 / 100 100 ML @ 200 mls/hr IV.SIG STAT STA Rx#:[id number] Oral 975 / 975 Other: # Voids 3 3 Narrative: GENERAL: NAD, A&Ox3 HEAD: Normocephalic. NECK: Supple, trachea midline. No lymphadenopathy. EYES: No scleral icterus. No injection or drainage. CARDIOVASCULAR: Regular rate and rhythm without murmurs, gallops, or rubs. RESPIRATORY: Breath sounds equal bilaterally. No accessory muscle use. Minor bibasilar crackles noted. GASTROINTESTINAL: Abdomen soft, non-tender, nondistended. MUSCULOSKELETAL: No cyanosis, or edema. SKIN: Warm and dry. NEURO: No focal neurological deficits. Results - Labs CBC & Chem 7: 04/25/18 03:27 04/25/18 03:27 Laboratory Results - last 24 hr 04/24/18 04/24/18 04/24/18 10:05 10:05 10:05 WBC 18.2 H RBC 3.99 L Hgb 12.1 Hct 36.2 MCV 90.9 MCH 30.3 MCHC 33.3 RDW 13.7 Plt Count 283 MPV 9.4 Neut % (Auto) 88.2 H Lymph % (Auto) 5.5 L [place] % (Auto) 5.3 Eos % (Auto) 0.6 Baso % (Auto) 0.4 Neut # (Auto) 16.1 H Lymph # (Auto) 1.0 [place] # (Auto) 1.0 H Eos # (Auto) 0.1 Baso # (Auto) 0.1 WBC Differential . Differential Comment Auto diff final Sodium 135 L Potassium 3.5 Chloride 89 L Carbon Dioxide 39.6 H Anion Gap 6 BUN 10 Creatinine 0.69 Estimated GFR 87 L Random Glucose 99 Lactic Acid 1.4 Calcium 8.8 Total Bilirubin 0.3 AST 11 L ALT 17 Alkaline Phosphatase 87 Total Protein 8.3 H Albumin 3.2 L Urine Color Urine Clarity Urine pH Ur Specific [place] Urine Protein Urine Glucose (UA) Urine Ketones Urine Occult Blood Urine Nitrate Urine Bilirubin Urine Urobilinogen Ur Leukocyte Esterase Urine RBC Urine WBC Ur Squamous Epith Cells Micro UA Comment Ur Microscopic Review Urine Culture Comments 04/24/18 04/25/18 04/25/18 11:34 03:27 03:27 WBC 11.5 H RBC 3.40 L Hgb 10.5 L Hct 31.4 L MCV 92.2 MCH 30.8 MCHC 33.4 RDW 14.1 Plt Count 233 MPV 9.7 Neut % (Auto) 74.4 H Lymph % (Auto) 13.4 [place] % (Auto) 10.7 H Eos % (Auto) 0.9 Baso % (Auto) 0.6 Neut # (Auto) 8.6 H Lymph # (Auto) 1.5 [place] # (Auto) 1.2 H Eos # (Auto) 0.1 Baso # (Auto) 0.1 WBC Differential . Differential Comment Auto diff final Sodium 140 Potassium 3.2 L Chloride 96 L Carbon Dioxide 35.4 H Anion Gap 9 BUN 9 Creatinine 0.64 Estimated GFR Greater than 89 Random Glucose 78 Lactic Acid Calcium 7.9 L D Total Bilirubin 0.4 AST 8 L ALT 11 Alkaline Phosphatase 69 Total Protein 6.9 D Albumin 2.6 L D Urine Color Yellow Urine Clarity Clear Urine pH 8.0 Ur Specific [place] 1.011 Urine Protein Negative Urine Glucose (UA) Negative Urine Ketones Negative Urine Occult Blood Negative Urine Nitrate Negative Urine Bilirubin Negative Urine Urobilinogen Less than 2 Ur Leukocyte Esterase Trace H Urine RBC Less than 1 Urine WBC 2 Ur Squamous Epith Cells 1 Micro UA Comment Culture not ind Ur Microscopic Review Not Reportable Urine Culture Comments Culture not ind - Imaging Impressions Chest X-Ray 04/24/18 10:00 CONCLUSION: Parenchymal changes right base could be an early inflammatory process. Mild cardiomegaly. Assessment and Plan - Plan Ms. Cali is a 57 year old female with a history of CHF, hyperlipidemia, diabetes mellitus, COPD who presented to the emergency department due to cough, fever. ED workup indicated leukocytosis along with bibasilar infiltrates on chest x-ray consistent with possible pneumonia. Community-acquired pneumonia -Patient is currently on ceftriaxone 1 g every 24 hours, azithromycin 500 mg daily. -We can switch her antibiotics to Levaquin p.o. COPD exacerbation -Albuterol nebulizer treatment, Symbicort Probable diastolic chronic congestive heart failure -We will check BMP. Chest x-ray shows possible fluid in the bibasilar area. -We will switch her Lasix to torsemide 20 mg daily. Oral thrush - Patient is on Diflucan IV. We will switch to PO for 7-14 days. Diabetes mellitus - Continue Metformin Full code. Discharge plan: Probable discharge today/tomorrow AM.
[2018-04-25] MEDS ORDERED: levoFLOXacin 750 MG Tablet PO SCH (10:15)
[2018-04-25] MEDS ORDERED: Fluconazole 100 MG Tablet PO SCH (10:15)
[2018-04-25] MEDS ORDERED: Azithromycin Inj 500 MG in Sodium Chlor 0.9% Inj 250 ML IV.SIG SCH (11:00)
[2018-04-25 12:07] VITALS: BP 119/70; PULSE 90; RESP 18; TEMP 98.3
[2018-04-26] MEDS ORDERED: Torsemide 20 MG Tablet PO SCH (09:00)
== END 2018-04-25 17:08 | disposition home or self-care (01) ==
LOC: NEPC 09:44 → NEDA 11:41 → N07 12:51
PROVIDERS: ADMIT Hospitalist; ATTEND Hospitalist

== ENCOUNTER 2018-08-30 01:46 | Inpatient (IN) ==
[2018-08-30 02:24] LABS: Baso # (Auto) 0.1 th/mm3 (0.0-0.2); Baso % (Auto) 0.5 % (0.0-2.0); Eos # (Auto) 0.1 th/mm3 (0.0-0.4); Eos % (Auto) 0.7 % (0.0-4.0); Hemoglobin 11.4 gm/dL (11.6-15.3); Lymph # (Auto) 1.6 th/mm3 (1.0-4.8); Lymph % (Auto) 9.1 % (9.0-44.0); Mean Corpuscular HGB Conc 31.7 % (32.0-36.0); Mean Corpuscular Hemoglobin 29.1 pg (27.0-34.0); Mean Corpuscular Volume 91.8 fL (80.0-100.0); Mean Platelet Volume 9.4 fL (7.0-11.0); Mono # (Auto) 1.1 th/mm3 (0.0-0.9); Mono % (Auto) 6.7 % (0.0-8.0); Neut # (Auto) 14.2 th/mm3 (1.8-7.7); Platelet Count 302 th/mm3 (150-450); Red Blood Count 3.93 mil/mm3 (4.00-5.30); Red Cell Distribution Width 14.5 % (11.6-17.2); White Blood Count 17.1 th/mm3 (4.0-11.0)
--- NOTE | 2018-08-30 02:41 | XR ---
EXAM DATE: 08/30/2018 2:36 AM EST AGE/SEX: 57 years / Female INDICATIONS: Respiratory disease, short of breath. CLINICAL DATA: This is the patient's initial encounter. Patient reports that signs and symptoms have been present for 1 day and indicates a pain score of 7/10. MEDICAL/SURGICAL HISTORY: Diverticulitis. Hypertension. Hypercholesterolemia. Diabetes mellitus type II. COPD.CHF None. COMPARISON: [facility], CHEST 1V SINGLE AP, 07/21/2018. . FINDINGS: A single AP view of the chest demonstrates the lungs to be symmetrically aerated without evidence of mass, infiltrate or effusion. The cardiomediastinal contours are unremarkable. Osseous structures a re intact. CONCLUSION: No acute disease Electronically signed by: Akshat Belle MD Board Certified Radiologist 08/30/2018 2:40 AM EST
[2018-08-30 02:46] LABS: Alanine Aminotransferase 14 U/L (10-53); Albumin 3.1 g/dL (3.4-5.0); Anion Gap 5 meq/L (5-15); Aspartate Aminotransferase 9 U/L (15-37); Blood Urea Nitrogen 16 mg/dL (7-18); Calcium 7.8 mg/dL (8.5-10.1); Carbon Dioxide 37.4 meq/L (21.0-32.0); Chloride 99 meq/L (98-107); Glomerular Filtration Rate Greater Than 89 mL/min (>89); Glucose,Random 110 mg/dL (74-106); Magnesium 1.5 mg/dL (1.5-2.5); Potassium 3.4 meq/L (3.5-5.1); Sodium 141 meq/L (136-145)
[2018-08-30] MEDS ORDERED: Magnesium Sulfate Inj 2 GM in Sodium Chlor 0.9% Inj 96 ML IV.SIG ONE (02:48)
[2018-08-30 02:49] LABS: Alkaline Phosphatase 93 U/L (45-117); Total Protein 7.4 g/dL (6.4-8.2)
--- NOTE | 2018-08-30 02:56 | ED ---
HPI General Chief complaint: Respiratory Symptoms Stated complaint: Diff breathing Time Seen by Provider: 08/30/18 01:56 Source: patient, EMS, RN notes reviewed and old records reviewed Mode of arrival: EMS Limitations: other (respiratory distress) History of Present Illness HPI narrative: 57yF presenting with respiratory distress. The patient reportedly called [facility] after she was having difficulty breathing all day; she used her home nebulizer with no relief of symptoms. [facility] states that the patient had oxygen at home but they don't know how many liters she uses at baseline. On their arrival, her O2 sats were 89% on room air and improved to high 90s with duonebs. She received 2 duoneb treatments, 1 albuterol treatment, and 125 mg solumedrol prior to arrival. On my exam, the patient has severe respiratory distress and is unable to provide any meaningful contribution to HPI. Related Data Home Medications Medication Instructions Recorded Confirmed bupropion HCl 150 mg PO BID 03/05/18 08/30/18 metformin 500 mg PO BID 03/05/18 08/30/18 atorvastatin 10 mg PO DAILY 04/24/18 08/30/18 ferrous sulfate 325 mg PO DAILY 04/24/18 08/30/18 fluticasone-salmeterol [Advair 1 inh INHALATION BID 04/24/18 08/30/18 Diskus] montelukast [Singulair] 10 mg PO QPM 04/24/18 08/30/18 pantoprazole 40 mg PO DAILY 04/24/18 08/30/18 pramipexole 1 mg PO DAILY 04/24/18 08/30/18 carvedilol [Coreg] 25 mg PO BID 07/21/18 08/30/18 furosemide [Lasix] 20 mg PO BID 07/21/18 08/30/18 potassium chloride 10 meq PO DAILY 07/21/18 08/30/18 umeclidinium [Incruse Ellipta] 1 inh INHALATION DAILY 08/30/18 08/30/18 Allergies Allergy/AdvReac Type Severity Reaction Status Date / Time No Known Allergies Allergy Verified 07/21/18 09:48 Review of Systems ROS Unobtainable ROS Unobtainable: other (unobtainable due to respiratory distress) [facility] Medical History Medical History Active asthma (Acute) Arthritis (Acute) CHF (congestive heart failure) (Acute) COPD (chronic obstructive pulmonary disease) (Acute) Diabetes (Acute) Elevated cholesterol (Acute) GERD (gastroesophageal reflux disease) (Acute) H/O cataract (Acute) HTN (hypertension) (Acute) RLS (restless legs syndrome) (Acute) Surgical History Surgical History H/O tubal ligation (Acute) History of total left knee replacement (Acute) Family History Family History Other Osteoarthritis Social History Social History Substance History: No History of Abuse Second Hand Smoke Exposure: No Smoking Status: Former smoker Tobacco Type: Cigarettes How Often Do You Have a Drink Containing Alcohol: Never Recent Travel in [facility] within the Last 8 Weeks: No Recent Out of Country Travel within the Last 8 Weeks: No Immunization History Tetanus Immunization: <5 Years Exam Const General: acute distress and ill appearing HENMT Face and sinus: normal facial exam Eyes General: appearance normal, both eyes and all related structures Resp Other: Severe respiratory distress with accessory muscle use Speaks in 1-2 word phrases only Full-field inspiratory/ expiratory wheezing bilaterally Cardio Rate: tachycardic Rhythm: regular rhythm GI Inspection: obesity Palpation: nontender Skin Other: Diaphoretic Neuro General: alert and awake Course Initial Documented Vital Signs Pulse Rate 97 H 08/30/18 01:55 Respiratory Rate 42 H 08/30/18 01:55 Blood Pressure 130/28 L 08/30/18 01:55 Pulse Oximetry 98 08/30/18 01:55 Last Documented Vital Signs Temperature 98.1 F 08/30/18 02:04 Pulse Rate 96 H 08/30/18 03:39 Respiratory Rate 24 08/30/18 03:39 Blood Pressure 128/56 L 08/30/18 03:39 Pulse Oximetry 92 L 08/30/18 03:39 Critical Care Time Critical Care Time: Yes Total Critical Care Time: 38 Attestation: Counseling/ Coordination of Care: This patient is critically ill with impairment of one or more vital organ systems with a high probability of imminent or life-threatening deterioration. High-complexity medical decision making was required to support vital organ function and/ or prevent deterioration of the patient's condition. Total critical care time spent is 38 minutes giving full attention to this patient. This includes examining and stabilizing the patient, gathering a history from a source other than the patient (i.e., chart review), formulating a differential diagnosis, ordering and interpreting laboratory tests and EKG, ordering and interpreting radiology tests, discussing the patient's care with other providers (EMS, [facility]), management of severe respiratory distress with non- invasive ventilation, re-evaluation at frequent intervals, and documentation. Amount of time is separate from teaching, counseling the patient and/or family, and exclusive of procedures. Medical Decision Making MDM Narrative Medical decision making narrative: Assessment: 57yF presenting with severe respiratory distress Plan: EKG and monitor Bipap, additional nebs Patient was already given steroids by EMS prior to arrival CXR Labs ABG Addendum: Patient re-evaluated after several hours on bipap, multiple nebs, etc. She is now off bipap and tolerating nasal cannula. She reports that she has severe COPD at baseline and has had "a cold" for the past several months which has not improved despite multiple courses of levaquin and azithromycin. She says that she uses 2L O2 NC around the clock at home, nocturnal bipap, and is on prednisone 4-5 times a year. Her operator/assistant foreman is Dr. Salmeron. She says that today she tried using her neb and wasn't able to catch her breath so she called EMS. Her ABG was performed on bipap and shows chronic compensated respiratory acidosis (7.36/ 63.7/ 71.5/ 35.3/ +9.7). Will keep for continued nebs/ bipap PRN/ continued steroids/ re-evaluation at frequent intervals. She understands and agrees with plan. Case discussed with Dr. Gibson of [facility]. Medical Screen Exam Complete: Yes Emergency Medical Condition: Yes Differential Diagnosis Differential Diagnosis: Differential diagnosis includes, but is not limited to: COPD exacerbation, pneumonia, pulmonary edema, sepsis/ SIRS Medical Records Medical records reviewed: Yes I reviewed the patient's medical records. Lab Data Lab results reviewed: Yes I reviewed the patient's lab results. Result diagrams: 08/30/18 02:00 08/30/18 02:00 Lab Results 08/30/18 08/30/18 08/30/18 Range/Units 02:00 02:00 02:00 WBC 17.1 H (4.0-11.0) th/mm3 RBC 3.93 L (4.00-5.30) mil/mm3 Hgb 11.4 L (11.6-15.3) gm/dL Hct 36.0 (35.0-46.0) % MCV 91.8 (80.0-100.0) fL MCH 29.1 (27.0-34.0) pg MCHC 31.7 L (32.0-36.0) % RDW 14.5 (11.6-17.2) % Plt Count 302 (150-450) th/mm3 MPV 9.4 (7.0-11.0) fL Neut % (Auto) 83.0 H (16.0-70.0) % Lymph % (Auto) 9.1 (9.0-44.0) % Mclean % (Auto) 6.7 (0.0-8.0) % Eos % (Auto) 0.7 (0.0-4.0) % Baso % (Auto) 0.5 (0.0-2.0) % Neut # (Auto) 14.2 H (1.8-7.7) th/mm3 Lymph # (Auto) 1.6 (1.0-4.8) th/mm3 Mclean # (Auto) 1.1 H (0.0-0.9) th/mm3 Eos # (Auto) 0.1 (0.0-0.4) th/mm3 Baso # (Auto) 0.1 (0.0-0.2) th/mm3 WBC Differential . Differential Comment Auto diff final PT 10.0 (9.8-11.6) sec INR 1.0 Ratio Sodium 141 (136-145) meq/L Potassium 3.4 L (3.5-5.1) meq/L Chloride 99 (98-107) meq/L Carbon Dioxide 37.4 H (21.0-32.0) meq/L Anion Gap 5 (5-15) meq/L BUN 16 (7-18) mg/dL Creatinine 0.67 (0.50-1.00) mg/dL Estimated GFR Greater than 89 (>89) mL/min Random Glucose 110 H (74-106) mg/dL Lactic Acid (0.4-2.0) mmol/L Calcium 7.8 L (8.5-10.1) mg/dL Magnesium 1.5 (1.5-2.5) mg/dL Total Bilirubin 0.2 (0.2-1.0) mg/dL AST 9 L (15-37) U/L ALT 14 (10-53) U/L Alkaline Phosphatase 93 (45-117) U/L Troponin I Less than 0.02 L (0.02-0.05) ng/mL B-Natriuretic Peptide (0-100) pg/mL Total Protein 7.4 (6.4-8.2) g/dL Albumin 3.1 L (3.4-5.0) g/dL 08/30/18 08/30/18 Range/Units 02:00 02:13 WBC (4.0-11.0) th/mm3 RBC (4.00-5.30) mil/mm3 Hgb (11.6-15.3) gm/dL Hct (35.0-46.0) % MCV (80.0-100.0) fL MCH (27.0-34.0) pg MCHC (32.0-36.0) % RDW (11.6-17.2) % Plt Count (150-450) th/mm3 MPV (7.0-11.0) fL Neut % (Auto) (16.0-70.0) % Lymph % (Auto) (9.0-44.0) % Mclean % (Auto) (0.0-8.0) % Eos % (Auto) (0.0-4.0) % Baso % (Auto) (0.0-2.0) % Neut # (Auto) (1.8-7.7) th/mm3 Lymph # (Auto) (1.0-4.8) th/mm3 Mclean # (Auto) (0.0-0.9) th/mm3 Eos # (Auto) (0.0-0.4) th/mm3 Baso # (Auto) (0.0-0.2) th/mm3 WBC Differential Differential Comment PT (9.8-11.6) sec INR Ratio Sodium (136-145) meq/L Potassium (3.5-5.1) meq/L Chloride (98-107) meq/L Carbon Dioxide (21.0-32.0) meq/L Anion Gap (5-15) meq/L BUN (7-18) mg/dL Creatinine (0.50-1.00) mg/dL Estimated GFR (>89) mL/min Random Glucose (74-106) mg/dL Lactic Acid 1.1 (0.4-2.0) mmol/L Calcium (8.5-10.1) mg/dL Magnesium (1.5-2.5) mg/dL Total Bilirubin (0.2-1.0) mg/dL AST (15-37) U/L ALT (10-53) U/L Alkaline Phosphatase (45-117) U/L Troponin I (0.02-0.05) ng/mL B-Natriuretic Peptide 9 (0-100) pg/mL Total Protein (6.4-8.2) g/dL Albumin (3.4-5.0) g/dL Imaging Data Radiologist's impression: Chest X-Ray 08/30/18 01:56 CONCLUSION: No acute disease ECG Data Attestation: I personally reviewed and interpreted this ECG as follows: Interpretation: Rate: 92 BPM Rhythm: Sinus Blanchard: Normal Intervals: Normal intervals, no blocks, QTc 395 ms Q waves: III, V2 T waves: Upright, no inversions ST segments: No elevations or depressions Impression: Non-specific EKG, no changes as compared to EKG from 07/21/2018. Discharge Plan Discharge Disposition Patient Disposition: ED Admit(ED Internal Use Only) Discharge Condition Condition: Stable Discharge Order Discharge Orders: ED Use Only Admit Order (Routine); Ordered 08/30/18 Ordered By: Shoshana Powell Discharge Details Diagnosis: COPD exacerbation, Respiratory distress Physicians Team ED Provider: Shoshana Powell Primary Care Provider: Brayan Johnson Rxs /Orders / Referrals /Forms Prescriptions: No Action pramipexole 1 mg Tablet 1 mg PO DAILY RF: 0 atorvastatin 10 mg Tablet 10 mg PO DAILY RF: 0 pantoprazole 40 mg Tablet,Delayed Release (Dr/Ec) 40 mg PO DAILY RF: 0 ferrous sulfate 325 mg (65 mg iron) Tablet 325 mg PO DAILY RF: 0 montelukast [Singulair] 10 mg Tablet 10 mg PO QPM RF: 0 fluticasone-salmeterol [Advair Diskus] 500-50 mcg/dose Blister With Device 1 inh INHALATION BID RF: 0 carvedilol [Coreg] 25 mg Tablet 25 mg PO BID RF: 0 potassium chloride 10 mEq Tablet Extended Release 10 meq PO DAILY RF: 0 furosemide [Lasix] 20 mg Tablet 20 mg PO BID RF: 0 metformin 500 mg Tablet 500 mg PO BID RF: 0 bupropion HCl 150 mg Tablet Extended Release 12 Hr 150 mg PO BID RF: 0 umeclidinium [Incruse Ellipta] 62.5 mcg/actuation Blister With Device 1 inh INHALATION DAILY RF: 0 Status ED Status: Pending Admission
[2018-08-30] MEDS ORDERED: Bisacodyl 10 MG Supp RECTAL PRN (03:48)
[2018-08-30] MEDS ORDERED: Acetaminophen 325 MG Tablet PO PRN (03:48)
[2018-08-30] MEDS ORDERED: Dextrose 50% in Water 50 ML Vial IV.PUSH PRN (03:48)
[2018-08-30] MEDS ORDERED: Naloxone Inj 0.4 MG/ML Vial IV.PUSH PRN (04:01)
[2018-08-30 04:04] LABS: ABG Base Excess 9.7 mmol/L (-2-2); ABG PCO2 64 mmHg (38-42); ABG PO2 72 mmHg (61-120)
--- NOTE | 2018-08-30 04:14 | P.HPIM ---
History of Present Illness Primary Care Physician: BG Baez History of Present Illness: This is a 57-year-old female with a PMH of HTN, Hyperlipidemia, DM, RLS, CHF (Unknown EF) and O2 Dependent COPD who was brought to the ER by EMS for SOB/wheezing. Notes progressive SOB/wheezing x1 day despite home Nebulizer treatments. O2 sat 89% on RA upon EMS arrival w/ significant respiratory distress, placed on BIPAP in ER. Denies fever or chills , notes "hot flashes". +Non-productive cough. Follows w/ Dr. Salmeron as outpatient. On arrival, BP 130/28, HR 97, O2 sat 98% on NRB @15L, placed immediately on BIPAP, now weaned down to 3L NC. +persistent wheezing, SOB and significant dyspnea w/ speech/activity. WBC 17.1. Chemistry essentially unremarkable. Lactic Acid 1.1. ABG pH 7.36, PCO2 64, PO2 72 on BiPAP, 50% FiO2. CXR with no acute findings. Diagnosis (1) COPD (chronic obstructive pulmonary disease): (2) Hypoxia: (3) Acute respiratory distress: (4) DM (diabetes mellitus): Inpatient Certification Inpatient Certification: I certify that the inpatient services were ordered in accordance with Medicare regulations governing the order. This includes certification that hospital inpatient services are reasonable and necessary and in the case of services not specified as inpatient-only under 42 CFR 419.22(n), that they are appropriately provided as inpatient services in accordance to with the 2-midnight benchmark under 43 CFR 412.3(e) Estimated Total Length of Stay (Days): 2 Plans for Post Hospital Care: Not yet determined Review of Systems PAST FAMILY HISTORY: Reviewed. No h/o DM or CAD Review of Systems: all other systems reviewed are negative [facility] Medical History Medical History Active asthma (Acute) Arthritis (Acute) CHF (congestive heart failure) (Acute) COPD (chronic obstructive pulmonary disease) (Acute) Diabetes (Acute) Elevated cholesterol (Acute) GERD (gastroesophageal reflux disease) (Acute) H/O cataract (Acute) HTN (hypertension) (Acute) RLS (restless legs syndrome) (Acute) Surgical History Surgical History H/O tubal ligation (Acute) History of total left knee replacement (Acute) Family History Family History Other Osteoarthritis Social History Social History Substance History: No History of Abuse Second Hand Smoke Exposure: No Smoking Status: Former smoker Tobacco Type: Cigarettes How Often Do You Have a Drink Containing Alcohol: Never Recent Travel in [facility] within the Last 8 Weeks: No Recent Out of Country Travel within the Last 8 Weeks: No Immunization History Tetanus Immunization: <5 Years Medications and Allergies Allergies Allergy/AdvReac Type Severity Reaction Status Date / Time No Known Allergies Allergy Verified 07/21/18 09:48 Home Medications Medication Instructions Recorded Confirmed Type bupropion HCl 150 mg PO BID 03/05/18 08/30/18 History metformin 500 mg PO BID 03/05/18 08/30/18 History atorvastatin 10 mg PO DAILY 04/24/18 08/30/18 History ferrous sulfate 325 mg PO DAILY 04/24/18 08/30/18 History fluticasone-salmeterol [Advair 1 inh INHALATION BID 04/24/18 08/30/18 History Diskus] montelukast [Singulair] 10 mg PO QPM 04/24/18 08/30/18 History pantoprazole 40 mg PO DAILY 04/24/18 08/30/18 History pramipexole 1 mg PO DAILY 04/24/18 08/30/18 History carvedilol [Coreg] 25 mg PO BID 07/21/18 08/30/18 History furosemide [Lasix] 20 mg PO BID 07/21/18 08/30/18 History potassium chloride 10 meq PO DAILY 07/21/18 08/30/18 History umeclidinium [Incruse Ellipta] 1 inh INHALATION DAILY 08/30/18 08/30/18 History Active Medications: Active Medications Acetaminophen (Tylenol) 650 mg PO Q4H PRN PRN Reason: Temp > 100.4 Hydrocodone Bitart/Acetaminophen ([place] 5/325) 1 tab PO Q4H PRN PRN Reason: PAIN SCALE 3 TO 5 Al Hydroxide/Mg Hydroxide (Milk Of Magnesia Liq) 30 ml PO Q12H PRN PRN Reason: Mild Constipation Albuterol (Albuterol Neb (Prn)) 1.25 mg NEB Q2HR NEB PRN PRN Reason: WHEEZING Albuterol (Duoneb Neb (Prn)) 1 ampul NEB Q2HR NEB PRN PRN Reason: SOB/WHEEZING Albuterol (Duoneb Neb (Brunilda)) 1 ampul NEB Q6HR WHILE AWAKE NEB BRUNILDA Atorvastatin Calcium (Lipitor) 10 mg PO DAILY [facility] Bisacodyl (Dulcolax Supp) 10 mg RECTAL DAILY PRN PRN Reason: SEVERE CONSITIPATION Budesonide/Formoterol Fumarate (Symbicort 160/4.5 Mcg Inh) 2 puff INH BID [facility] Bupropion HCl (Wellbutrin Sr) 150 mg PO BID [facility] Dextrose (D50w Vial) 50 ml IV.PUSH UNSCH PRN PRN Reason: PER HYPOGLYCEMIA PROTOCOL Ferrous Sulfate (Ferosul) 325 mg PO DAILY [facility] Furosemide (Lasix) 20 mg PO BID [facility] Glucagon (Glucagon Inj) 1 mg OTHER PRN PRN PRN Reason: for Hypoglycemia Protocol Guaifenesin (Mucinex Er) 600 mg PO BID [facility] Heparin Sodium (Porcine) (Heparin Inj) 5,000 units SQ Q12H [facility] Magnesium Sulfate 2 gm/ Sodium (Chloride) 100 mls @ 50 mls/hr IV.SIG ONCE ONE Stop: 08/30/18 04:47 Last Admin: 08/30/18 03:20 Dose: 50 mls/hr Insulin Aspart (Novolog Insulin Correctional Sugar Inj) 0 unit SQ ACHS BRUNILDA; Protocol Lactulose (Lactulose Liq) 30 ml PO DAILY PRN PRN Reason: SEVERE CONSITIPATION Methylprednisolone Sodium Succinate (Solumedrol Inj) 40 mg IV.PUSH Q6H [facility] Montelukast Sodium (Singulair) 10 mg PO QPM [facility] Morphine Sulfate (Morphine Inj) 2 mg IV.PUSH Q4H PRN PRN Reason: PAIN SCALE 6 TO 10 Naloxone HCl (Narcan Inj) 0.4 mg IV.PUSH UNSCH PRN PRN Reason: SEE LABEL COMMENTS Non-Formulary Medication (Umeclidinium [Incruse Ellipta]) 1 inh INHALATION DAILY [facility] Ondansetron HCl (Zofran Inj) 4 mg IV.PUSH Q6H PRN PRN Reason: NAUSEA OR VOMITING Pantoprazole Sodium (Protonix) 40 mg PO DAILY [facility] Pramipexole Dihydrochloride (Mirapex) 1 mg PO DAILY [facility] Senna/Docusate Sodium (Shante-Colace) 1 tab PO BID [facility] Sennosides (Senokot) 17.2 mg PO Q12H PRN PRN Reason: Moderate Constipation Sodium Chloride (Ns Flush) 2 ml IV.FLUSH PRN PRN PRN Reason: FLUSH AFTER USING IV ACCESS Sodium Chloride (Ns Flush) 2 ml IV.FLUSH BID [facility] Physical Exam Vital signs: Vital Signs 08/30/18 01:50 08/30/18 01:55 08/30/18 02:04 Temperature 98.1 F Pulse Rate 97 H 94 H Respiratory Rate 42 H 27 H Blood Pressure 130/28 L 137/68 Pulse Oximetry 95 98 100 08/30/18 03:19 08/30/18 03:39 Temperature Pulse Rate 96 H Respiratory Rate 24 Blood Pressure 128/56 L Pulse Oximetry 94 L 92 L Intake & Output 08/29/18 08/29/18 08/30/18 06:59 18:59 06:59 Weight 113.398 kg Narrative: PE: GENERAL: Middle-aged white female in moderate distress due to SOB, +dyspnea w/ speech and minimal activity. SKIN: Focused skin assessment warm and dry. HEENT: PERRLA, EOMI. No scleral icterus or conjunctival pallor. No lid lag or facial droop. CARDIOVASCULAR: Regular rate and rhythm. No obvious murmurs to auscultation. No chest tenderness to palpation. RESPIRATORY: +diffuse wheezing bilaterally. +good air movement. Breath sounds equal bilaterally. GASTROINTESTINAL: Abdomen soft, non-tender, nondistended. BS normal. MUSCULOSKELETAL: Extremities without clubbing, cyanosis, or edema. No obvious deformities. NEUROLOGICAL: Awake, alert and oriented x4. No focal neurologic deficits. Moving both upper and lower extremities spontaneously. PSYCHIATRIC: Appropriate mood and affect. Insight and judgment normal. Results Labs CBC & Chem 7: 08/30/18 02:00 08/30/18 02:00 Imaging Impressions Chest X-Ray 08/30/18 01:56 CONCLUSION: No acute disease Caprini VTE Risk Assessment Caprini VTE Risk Assessment: No/Low Risk (score <= 1) Caprini Risk Assessment Model: Point Value = 1 Point Value = 2 Point Value = 3 Point Value = 5 Age 41-60 Minor surgery BMI > 25 kg/m2 Swollen legs Varicose veins or History of unexplained or recurrent spontaneous Oral contraceptives or hormone replacement Sepsis (< 1 month) Serious lung disease, including pneumonia (< 1 month) Abnormal pulmonary function Acute myocardial infarction Congestive heart failure (< 1 month) History of inflammatory bowel disease Medical patient at bed rest Age 61-74 Arthroscopic surgery Major open surgery (> 45 min) Laparoscopic surgery (> 45 min) Malignancy Confined to bed (> 72 hours) Immobilizing plaster cast Central venous access Age >= 75 History of VTE Family history of VTE Factor V Leiden Prothrombin [id number] Lupus anticoagulant Anticardiolipin antibodies Elevated serum homocysteine Heparin-induced thrombocytopenia Other congenital or acquired thrombophilia Stroke (< 1 month) Elective arthroplasty Hip, pelvis, or leg fracture Acute spinal cord injury (< 1 month) Prophylaxis Regimen: Total Risk Factor Score Risk Level Prophylaxis Regimen 0-1 Low Early ambulation 2 Moderate Order ONE of the following: *Sequential Compression Device (SCD) *Heparin 5000 units SQ BID 3-4 Higher Order ONE of the following medications: *Heparin 5000 units SQ TID *Enoxaparin/Lovenox 40 mg SQ daily (WT < 150 kg, CrCl > 30 mL/min) *Enoxaparin/Lovenox 30 mg SQ daily (WT < 150 kg, CrCl > 10-29 mL/min) *Enoxaparin/Lovenox 30 mg SQ BID (WT < 150 kg, CrCl > 30 mL/min) AND/OR *Sequential Compression Device (SCD) 5 or more Highest Order ONE of the following medications: *Heparin 5000 units SQ TID (Preferred with Epidurals) *Enoxaparin/Lovenox 40 mg SQ daily (WT < 150 kg, CrCl > 30 mL/min) *Enoxaparin/Lovenox 30 mg SQ daily (WT < 150 kg, CrCl > 10-29 mL/min) *Enoxaparin/Lovenox 30 mg SQ BID (WT < 150 kg, CrCl > 30 mL/min) AND *Sequential Compression Device (SCD) Assessment and Plan (1) COPD (chronic obstructive pulmonary disease): Code(s): J44.9 - Chronic obstructive pulmonary disease, unspecified Status: Acute (2) Hypoxia: Code(s): R09.02 - Hypoxemia Status: Acute (3) Acute respiratory distress: Code(s): R06.03 - Acute respiratory distress Status: Acute (4) DM (diabetes mellitus): Code(s): E11.9 - Type 2 diabetes mellitus without complications Status: Acute Plan A/P: 1. COPD: Chronic w/ Acute Respiratory Failure. Severe. +significant respiratory distress, initially on BIPAP, now weaned to 2L NC however persistent SOB/dyspnea w/ speech, may require re-initiation of BIPAP, will monitor closely, admit to [facility], resume BIPAP as needed, Solu-Medrol, DuoNeb q2h prn and q4h, Symbicort, Mucinex. Follows w/ Dr. Salmeron, will consult for further eval/recommendations. CXR w/ no acute findings. 2. Hypoxia: O2 sat 89% on RA, +O2 Dependent on 2L continuously, monitor O2. 3. DM: Sliding scale w/ Accu-Cheks, hold Metformin. 4. DVT Prophylaxis: Heparin 5. Social work for d/c planning as needed. 6. Case discussed w/ ER physician at length, labs/records/imaging reviewed by me.
[2018-08-30] MEDS: Morphine Sulfate Inj 2 MG/ML Vial IV.PUSH PRN ×3 (04:21→20:52)
[2018-08-30] MEDS: MethylPREDNISolone Sod Succinate Inj 40 MG/ML Vial IV.PUSH SCH ×4 (04:21→21:00)
--- NOTE | 2018-08-30 08:46 | ECG ---
Date Performed: 08/30/2018 Time Performed: 02:25:25 PTAGE: 57 years EKG: Baseline artifact present Sinus rhythm LOW QRS VOLTAGE IN EXTREMITY LEADS Nonspecific T wave changes BORDERLINE ECG Compared to prior elect rocardiogram, nonspecific T-wave changes are present. PREVIOUS TRACING : 07/21/2018 10.23 DOCTOR: Hector Castillo Interpretating Date/Time 08/30/2018 08:44:59
[2018-08-30] MEDS: Furosemide 20 MG Tablet PO SCH ×2 (08:52→20:03)
[2018-08-30] MEDS: Budesonide-Formoterol 160/4.5 MCG 6 GM Inhaler INH SCH ×2 (08:52→20:02)
[2018-08-30] MEDS: buPROPion 150 MG 12 HR Tablet PO SCH ×2 (08:53→20:02)
[2018-08-30] MEDS: Heparin - SQ 10,000 UNITS/ML Vial SQ SCH ×2 (08:53→20:03)
[2018-08-30] MEDS: Ferrous Sulfate 325 MG Tablet PO SCH (08:53)
[2018-08-30] MEDS: guaiFENesin 600 MG ER Tablet PO SCH ×2 (08:53→20:02)
[2018-08-30] MEDS: Insulin NovoLOG Aspart Correctional Sugar Inj SQ SCH ×4 (08:54→20:51)
[2018-08-30] MEDS: Senna/Docusate Sodium 8.6/50 MG Tablet PO SCH ×2 (09:16→20:02)
[2018-08-30] MEDS: levoFLOXacin 500 MG Tablet PO SCH (10:32)
[2018-08-30] MEDS: UMECLIDINIUM INHALATION SCH (11:50)
--- NOTE | 2018-08-30 12:09 | MB ---
cc: Tino Dsouza MD DATE: 08/30/2018 HISTORY OF PRESENT ILLNESS: The patient is a 57-year-old female with a past medical history of COPD on 2 liters home oxygen continuously, obstructive sleep apnea, restless legs syndrome, hyperlipidemia, hypertension and bronchial asthma. The patient presented to [facility] ED with progressive worsening shortness of breath associated with productive cough and wheezing. She denies any orthopnea, PND, or edema of lower extremities. Also, she denies any constitutional symptoms. She is known to Dr. Salmeron. The patient states that her symptoms started back in June; however, progressively worsened in the last few days. She was given antibiotics as an outpatient without any significant relief. She uses DuoNeb, Advair and Incruse Ellipta at home. ABG was performed on BiPAP 15/5 with 50%, which showed a pH of 7.36, CO2 64, pO2 72, bicarbonate 35 and saturation of 92%. Chest x-ray on arrival showed no acute disease. She quit smoking 3 months ago and smoked up to 3 packs per day for 40 plus years. She was admitted under hospitalist service and started on bronchodilators and steroids. She denies any nausea, vomiting or abdominal pain. PAST MEDICAL HISTORY: Significant for COPD on 2 liters home oxygen, bronchial asthma, diabetes mellitus, hyperlipidemia, GERD, hypertension, restless leg syndrome. PAST SURGICAL HISTORY: Total left knee replacement, previous tubal ligation. ALLERGIES: NO KNOWN DRUG ALLERGIES. FAMILY HISTORY: Arthritis runs in the family. SOCIAL HISTORY: Ex-smoker used to smoke 3 packs per day for 40 plus years. Nondrinker. MEDICATIONS AT HOME: 1. Incruse Ellipta. 2. Singulair. 3. Lasix. 4. Advair. 5. Coreg. 6. Metformin. 7. Atorvastatin. REVIEW OF SYSTEMS: As per HPI. Rest of the systems is unremarkable. PHYSICAL EXAMINATION: GENERAL: A 57-year-old female sitting up in bed on the BiPAP, in no acute distress. VITAL SIGNS: Temperature 98.1, pulse of 94, respiratory rate of 22, blood pressure 140/74, saturation 92-94% on 3 liter oxygen. HEENT: Atraumatic, normocephalic. Pupils are equal, round, reactive to light and accommodation. Extraocular muscles intact. Conjunctivae pink. Anicteric sclerae. Oral mucosa within normal. NECK: Supple. No JVD, adenopathy or thyromegaly. Trachea in the midline. CARDIOVASCULAR: Regular rate and rhythm. Normal S1, S2. No murmurs, rubs or gallops noted. PULMONARY: Bilateral equal air entry with scattered wheezing. ABDOMEN: Soft, obese, nontender, nondistended, positive bowel sounds. EXTREMITIES: No cyanosis, clubbing or edema. NEUROLOGIC: No focal sensory deficit. LABORATORY DATA: Sodium 141, potassium 3.4, chloride 99, CO2 37, BUN 16, creatinine 0.67, glucose 110. WBC 17.1, hemoglobin 11, hematocrit 36, platelet count of 302. RADIOGRAPHIC STUDIES: Chest x-ray shows no acute disease. ASSESSMENT AND PLAN: 1. Acute hypoxemic and hypercapnic respiratory insufficiency. 2. Chronic obstructive pulmonary disease exacerbation, on 2 liter home oxygen. 3. History of bronchial asthma. 4. History of tobacco abuse. 5. Leukocytosis. 6. Hypertension. 7. Diabetes mellitus. 8. Restless leg syndrome. 9. Obstructive sleep apnea. 10. Obesity. RECOMMENDATIONS: 1. Continue with oxygen and maintain sats above 92%. 2. Continue with bronchodilators. She is on DuoNeb every 6 hours plus every 2 hours p.r.n. for shortness of breath, in addition to Symbicort 160/4.5 b.i.d. and Incruse Ellipta 1 inhaler daily. 3. Continue with SOLU-Medrol 40 mg IV every 6 hours and Singulair 10 mg at bedtime. 4. BiPAP p.r.n. and at bedtime. 5. Place on empiric antibiotics, Levaquin 500 mg daily for 5 days for COPD exacerbation. 6. Gastrointestinal and deep venous thrombosis prophylaxis. Further recommendations will be based on hospital course. Thank you for this consultation and allowing us to participate in this patient's care. MD KATHI Rogers/gurmeet , 09:22 AM , 09:33 AM
[2018-08-30 15:15] LABS: Bacteria,Urine Few /hpf; Bilirubin,Urine Negative (Negative); Clarity,Urine Clear (Clear); Color,Urine Yellow (Yellw/Straw); Glucose,Urine (UA) Negative (Negative); Hyaline Casts,Urine 1 /lpf (0-3); Leukocyte Esterase,Urine Trace (Negative); Mucus,Urine Few /lpf (Occasional); Nitrite,Urine Negative (Negative); Specific Gravity,Urine 1.012 (1.002-1.035); Squamous Epithelial Cell,Urine 3 /hpf (0-5)
--- NOTE | 2018-08-30 16:24 | P.PNIM ---
Deterioration other than the patient reporting some headache, asking for Tylenol or Advil. Says she feels much better since admission in terms of her respiratory distress. Says she wears 2 L chronically at home Has some mild expiratory wheezing. Is on BiPAP when lying down, but when I come and talk to her, she takes it off and puts on her nasal cannula. Denies any chest pain. Heart sounds regular rate rhythm Awake alert, minimal respiratory distress
[2018-08-30] MEDS: Acetaminophen 500 MG Tablet PO PRN (16:45)
[2018-08-30] MEDS: Montelukast 10 MG Tablet PO SCH (17:47)
[2018-08-31] MEDS: Acetaminophen 500 MG Tablet PO PRN ×2 (04:19→16:59)
[2018-08-31] MEDS: MethylPREDNISolone Sod Succinate Inj 40 MG/ML Vial IV.PUSH SCH ×4 (04:20→21:47)
[2018-08-31 07:48] LABS: Baso % (Auto) 0.1 % (0.0-2.0); Hematocrit 34.7 % (35.0-46.0); Hemoglobin 11.2 gm/dL (11.6-15.3); Lymph # (Auto) 0.6 th/mm3 (1.0-4.8); Lymph % (Auto) 4.5 % (9.0-44.0); Mean Corpuscular HGB Conc 32.4 % (32.0-36.0); Mean Corpuscular Hemoglobin 29.1 pg (27.0-34.0); Mean Corpuscular Volume 89.7 fL (80.0-100.0); Mean Platelet Volume 9.6 fL (7.0-11.0); Mono # (Auto) 0.3 th/mm3 (0.0-0.9); Neut # (Auto) 12.9 th/mm3 (1.8-7.7); Neut % (Auto) 93.4 % (16.0-70.0); Platelet Count 303 th/mm3 (150-450); Red Blood Count 3.86 mil/mm3 (4.00-5.30); Red Cell Distribution Width 14.1 % (11.6-17.2); White Blood Count 13.8 th/mm3 (4.0-11.0)
[2018-08-31 08:28] LABS: Alanine Aminotransferase 15 U/L (10-53); Albumin 3.3 g/dL (3.4-5.0); Anion Gap 9 meq/L (5-15); Aspartate Aminotransferase 8 U/L (15-37); Blood Urea Nitrogen 18 mg/dL (7-18); Carbon Dioxide 34.4 meq/L (21.0-32.0); Chloride 96 meq/L (98-107); Glomerular Filtration Rate 86 mL/min (>89); Glucose,Random 132 mg/dL (74-106); Potassium 3.5 meq/L (3.5-5.1); Sodium 139 meq/L (136-145)
[2018-08-31 08:31] LABS: Alkaline Phosphatase 82 U/L (45-117); Total Protein 7.8 g/dL (6.4-8.2)
[2018-08-31] MEDS: Insulin NovoLOG Aspart Correctional Sugar Inj SQ SCH ×4 (08:40→20:22)
[2018-08-31] MEDS: Heparin - SQ 10,000 UNITS/ML Vial SQ SCH ×2 (08:42→20:08)
[2018-08-31] MEDS: buPROPion 150 MG 12 HR Tablet PO SCH ×2 (08:43→20:07)
[2018-08-31] MEDS: Ferrous Sulfate 325 MG Tablet PO SCH (08:43)
[2018-08-31] MEDS: guaiFENesin 600 MG ER Tablet PO SCH ×2 (08:44→20:07)
[2018-08-31] MEDS: Furosemide 20 MG Tablet PO SCH ×2 (08:44→20:08)
[2018-08-31] MEDS: levoFLOXacin 500 MG Tablet PO SCH (08:44)
[2018-08-31] MEDS: Senna/Docusate Sodium 8.6/50 MG Tablet PO SCH ×2 (08:44→20:07)
[2018-08-31] MEDS: Budesonide-Formoterol 160/4.5 MCG 6 GM Inhaler INH SCH ×3 (08:45→20:07)
[2018-08-31] MEDS: Morphine Sulfate Inj 2 MG/ML Vial IV.PUSH PRN ×2 (09:00→20:11)
[2018-08-31] MEDS ORDERED: predniSONE 20 MG Tablet PO SCH (10:00)
--- NOTE | 2018-08-31 11:10 | P.PNIM ---
Subjective Interval history: Nursing denies any deterioration since last night except for the patient complaining of arthritis pains. Patient herself says she still feels a little tight today. Physical Exam Vital signs: Vital Signs 08/30/18 12:00 08/30/18 13:19 08/30/18 15:55 Temperature 98.0 F 98.0 F Pulse Rate 107 H 106 H 112 H Respiratory Rate 18 18 18 Blood Pressure 134/75 125/74 Pulse Oximetry 90 L 08/30/18 16:00 08/30/18 19:00 08/30/18 19:23 Temperature 99.3 F Pulse Rate 114 H 107 H 102 H Respiratory Rate 18 Blood Pressure 133/79 Pulse Oximetry 93 L 08/30/18 19:43 08/30/18 20:00 08/30/18 21:00 Temperature Pulse Rate 96 H 101 H 110 H Respiratory Rate 18 Blood Pressure Pulse Oximetry 93 L 08/30/18 22:00 08/30/18 23:00 08/30/18 23:33 Temperature 97.8 F Pulse Rate 99 H 98 H 105 H Respiratory Rate 20 Blood Pressure 139/81 Pulse Oximetry 94 L 08/31/18 00:00 08/31/18 01:00 08/31/18 02:00 Temperature Pulse Rate 96 H 97 H 100 H Respiratory Rate 20 Blood Pressure Pulse Oximetry 08/31/18 03:00 08/31/18 04:02 08/31/18 04:13 Temperature 98 F Pulse Rate 104 H 100 H 92 H Respiratory Rate 20 Blood Pressure 125/77 Pulse Oximetry 92 L 08/31/18 05:04 08/31/18 06:00 08/31/18 07:00 Temperature Pulse Rate 91 H 95 H 92 H Respiratory Rate Blood Pressure Pulse Oximetry 08/31/18 08:00 08/31/18 08:03 08/31/18 09:00 Temperature 98.2 F Pulse Rate 94 H 93 H 96 H Respiratory Rate 18 Blood Pressure 164/89 H Pulse Oximetry 93 L 08/31/18 09:19 08/31/18 09:22 08/31/18 10:00 Temperature Pulse Rate 99 H 98 H Respiratory Rate 22 Blood Pressure Pulse Oximetry 92 L Intake & Output 08/30/18 08/31/18 08/31/18 18:59 06:59 18:59 Intake Total 2019 / 2019 720 / 720 Output Total 450 / 450 1675 / 1675 Balance 1570 / 1570 -955 / -955 Weight 119.6 kg Intake: Oral 2019 720 / 720 Output: Urine 450 / 450 1675 / 1675 Other: # Voids 5 Date of Last Bowel Movement 08/29/18 Narrative: Very diminished breath sounds with expiratory wheezing, conversive dyspnea obvious Heart sounds regular rate and rhythm No lower extremity edema Awake alert, on nasal cannula Results Labs CBC & Chem 7: 08/31/18 07:12 08/31/18 07:12 Labs: Microbiology 08/30/18 14:45 Nasal Wash Influenza Types A,B Antigen - Final Negative for FLU A and B antigen Infection due to influenza A or B cannot be ruled out since the antigen present in the sample may be below the detection limit of the test. Assessment and Plan (1) COPD (chronic obstructive pulmonary disease): Code(s): J44.9 - Chronic obstructive pulmonary disease, unspecified Status: Acute (2) Hypoxia: Code(s): R09.02 - Hypoxemia Status: Acute (3) Acute respiratory distress: Code(s): R06.03 - Acute respiratory distress Status: Acute (4) DM (diabetes mellitus): Code(s): E11.9 - Type 2 diabetes mellitus without complications Status: Acute Plan 57-year-old white female admitted for shortness of breath secondary to COPD exacerbation Sob COPD flareup Continue steroids, duo nebs, ICS -Home montelukast, Advair Chronic hypoxic respiratory failure COPD is the main cause, wean to home 2 L Hypertension -Home Coreg, furosemide, atorvastatin Anxiety Bupropion DM - SS w/ accuchecks SCDs Progress Note: Quality VTE Deep Vein Thrombosis/Pulmonary Embolism Present on Admission: No
[2018-08-31] MEDS: UMECLIDINIUM INHALATION SCH (11:50)
[2018-08-31] MEDS: Carvedilol 12.5 MG Tablet PO SCH ×2 (12:29→20:07)
[2018-08-31] MEDS: Tiotropium Bromide 18 MCG/ACT Inhaler INH SCH (12:29)
[2018-08-31] MEDS: Montelukast 10 MG Tablet PO SCH (16:59)
--- NOTE | 2018-08-31 17:15 | P.PN ---
Subjective Interval history: ALERT ON BIPAP STILL SOB BUT LESS Physical Exam Vital signs: Vital Signs 08/30/18 19:00 08/30/18 19:23 08/30/18 19:43 Temperature 99.3 F Pulse Rate 107 H 102 H 96 H Respiratory Rate 18 18 Blood Pressure 133/79 Pulse Oximetry 93 L 93 L 08/30/18 20:00 08/30/18 21:00 08/30/18 22:00 Temperature Pulse Rate 101 H 110 H 99 H Respiratory Rate Blood Pressure Pulse Oximetry 08/30/18 23:00 08/30/18 23:33 08/31/18 00:00 Temperature 97.8 F Pulse Rate 98 H 105 H 96 H Respiratory Rate 20 20 Blood Pressure 139/81 Pulse Oximetry 94 L 08/31/18 01:00 08/31/18 02:00 08/31/18 03:00 Temperature Pulse Rate 97 H 100 H 104 H Respiratory Rate Blood Pressure Pulse Oximetry 08/31/18 04:02 08/31/18 04:13 08/31/18 05:04 Temperature 98 F Pulse Rate 100 H 92 H 91 H Respiratory Rate 20 Blood Pressure 125/77 Pulse Oximetry 92 L 08/31/18 06:00 08/31/18 07:00 08/31/18 08:00 Temperature Pulse Rate 95 H 92 H 94 H Respiratory Rate Blood Pressure Pulse Oximetry 08/31/18 08:03 08/31/18 09:00 08/31/18 09:19 Temperature 98.2 F Pulse Rate 93 H 96 H Respiratory Rate 18 Blood Pressure 164/89 H Pulse Oximetry 93 L 92 L 08/31/18 09:22 08/31/18 10:00 08/31/18 11:00 Temperature Pulse Rate 99 H 98 H 95 H Respiratory Rate 22 Blood Pressure Pulse Oximetry 08/31/18 12:00 08/31/18 13:00 08/31/18 14:00 Temperature 98.0 F Pulse Rate 98 H 104 H 90 Respiratory Rate 18 Blood Pressure 159/87 H Pulse Oximetry 92 L 08/31/18 14:32 08/31/18 15:00 08/31/18 15:40 Temperature Pulse Rate 99 H 91 H Respiratory Rate 22 Blood Pressure Pulse Oximetry 92 L 93 L 08/31/18 16:00 08/31/18 16:48 Temperature 98.6 F Pulse Rate 86 87 Respiratory Rate 18 Blood Pressure 133/80 Pulse Oximetry 95 Intake & Output 08/30/18 08/31/18 08/31/18 18:59 06:59 18:59 Intake Total 2019 720 / 720 Output Total 450 / 450 1675 / 1675 Balance 1570 / 1570 -955 / -955 Weight 119.6 kg Intake: Oral 2019 720 / 720 Output: Urine 450 / 450 1675 / 1675 Other: # Voids 5 Date of Last Bowel Movement 08/29/18 - Constitutional mild distress - Routine HEENT Exam Head: Present: normocephalic Eye: Present: EOMI, PERRL - Routine Neck Exam Present: supple, full ROM - Routine Respiratory Exam Present: wheezes - Routine Cardiovascular Exam Present: RRR, S1, S2 - Routine Abdominal Exam Present: soft, normoactive bowel sounds - Routine Neurological Exam Present: alert, oriented X3 Results - Labs CBC & Chem 7: 08/31/18 07:12 08/31/18 07:12 Laboratory Results - last 24 hr 08/30/18 08/31/18 08/31/18 20:08 07:12 07:12 WBC 13.8 H RBC 3.86 L Hgb 11.2 L Hct 34.7 L MCV 89.7 MCH 29.1 MCHC 32.4 RDW 14.1 Plt Count 303 MPV 9.6 Neut % (Auto) 93.4 H Lymph % (Auto) 4.5 L [place] % (Auto) 2.0 Eos % (Auto) 0.0 Baso % (Auto) 0.1 Neut # (Auto) 12.9 H Lymph # (Auto) 0.6 L [place] # (Auto) 0.3 Eos # (Auto) 0.0 Baso # (Auto) 0.0 WBC Differential . Differential Comment Auto diff final Sodium 139 Potassium 3.5 Chloride 96 L Carbon Dioxide 34.4 H Anion Gap 9 BUN 18 Creatinine 0.70 Estimated GFR 86 L POC Glucose 185 H Random Glucose 132 H Calcium 9.0 D Total Bilirubin 0.2 AST 8 L ALT 15 Alkaline Phosphatase 82 Total Protein 7.8 Albumin 3.3 L 08/31/18 08/31/18 08/31/18 07:49 11:32 16:47 WBC RBC Hgb Hct MCV MCH MCHC RDW Plt Count MPV Neut % (Auto) Lymph % (Auto) [place] % (Auto) Eos % (Auto) Baso % (Auto) Neut # (Auto) Lymph # (Auto) [place] # (Auto) Eos # (Auto) Baso # (Auto) WBC Differential Differential Comment Sodium Potassium Chloride Carbon Dioxide Anion Gap BUN Creatinine Estimated GFR POC Glucose 160 H 148 H 140 H Random Glucose Calcium Total Bilirubin AST ALT Alkaline Phosphatase Total Protein Albumin Microbiology 08/30/18 14:45 Nasal Wash Influenza Types A,B Antigen - Final Negative for FLU A and B antigen Infection due to influenza A or B cannot be ruled out since the antigen present in the sample may be below the detection limit of the test.
--- NOTE | 2018-08-31 17:16 | P.PN ---
Physical Exam Vital signs: Vital Signs 08/30/18 19:00 08/30/18 19:23 08/30/18 19:43 Temperature 99.3 F Pulse Rate 107 H 102 H 96 H Respiratory Rate 18 18 Blood Pressure 133/79 Pulse Oximetry 93 L 93 L 08/30/18 20:00 08/30/18 21:00 08/30/18 22:00 Temperature Pulse Rate 101 H 110 H 99 H Respiratory Rate Blood Pressure Pulse Oximetry 08/30/18 23:00 08/30/18 23:33 08/31/18 00:00 Temperature 97.8 F Pulse Rate 98 H 105 H 96 H Respiratory Rate 20 20 Blood Pressure 139/81 Pulse Oximetry 94 L 08/31/18 01:00 08/31/18 02:00 08/31/18 03:00 Temperature Pulse Rate 97 H 100 H 104 H Respiratory Rate Blood Pressure Pulse Oximetry 08/31/18 04:02 08/31/18 04:13 08/31/18 05:04 Temperature 98 F Pulse Rate 100 H 92 H 91 H Respiratory Rate 20 Blood Pressure 125/77 Pulse Oximetry 92 L 08/31/18 06:00 08/31/18 07:00 08/31/18 08:00 Temperature Pulse Rate 95 H 92 H 94 H Respiratory Rate Blood Pressure Pulse Oximetry 08/31/18 08:03 08/31/18 09:00 08/31/18 09:19 Temperature 98.2 F Pulse Rate 93 H 96 H Respiratory Rate 18 Blood Pressure 164/89 H Pulse Oximetry 93 L 92 L 08/31/18 09:22 08/31/18 10:00 08/31/18 11:00 Temperature Pulse Rate 99 H 98 H 95 H Respiratory Rate 22 Blood Pressure Pulse Oximetry 08/31/18 12:00 08/31/18 13:00 08/31/18 14:00 Temperature 98.0 F Pulse Rate 98 H 104 H 90 Respiratory Rate 18 Blood Pressure 159/87 H Pulse Oximetry 92 L 08/31/18 14:32 08/31/18 15:00 08/31/18 15:40 Temperature Pulse Rate 99 H 91 H Respiratory Rate 22 Blood Pressure Pulse Oximetry 92 L 93 L 08/31/18 16:00 08/31/18 16:48 Temperature 98.6 F Pulse Rate 86 87 Respiratory Rate 18 Blood Pressure 133/80 Pulse Oximetry 95 Intake & Output 08/30/18 08/31/18 08/31/18 18:59 06:59 18:59 Intake Total 2019 720 / 720 Output Total 450 / 450 1675 / 1675 Balance 1570 / 1570 -955 / -955 Weight 119.6 kg Intake: Oral 2019 720 / 720 Output: Urine 450 / 450 1675 / 1675 Other: # Voids 5 Date of Last Bowel Movement 08/29/18 Results - Labs CBC & Chem 7: 08/31/18 07:12 08/31/18 07:12 Laboratory Results - last 24 hr 08/30/18 08/31/18 08/31/18 20:08 07:12 07:12 WBC 13.8 H RBC 3.86 L Hgb 11.2 L Hct 34.7 L MCV 89.7 MCH 29.1 MCHC 32.4 RDW 14.1 Plt Count 303 MPV 9.6 Neut % (Auto) 93.4 H Lymph % (Auto) 4.5 L [place] % (Auto) 2.0 Eos % (Auto) 0.0 Baso % (Auto) 0.1 Neut # (Auto) 12.9 H Lymph # (Auto) 0.6 L [place] # (Auto) 0.3 Eos # (Auto) 0.0 Baso # (Auto) 0.0 WBC Differential . Differential Comment Auto diff final Sodium 139 Potassium 3.5 Chloride 96 L Carbon Dioxide 34.4 H Anion Gap 9 BUN 18 Creatinine 0.70 Estimated GFR 86 L POC Glucose 185 H Random Glucose 132 H Calcium 9.0 D Total Bilirubin 0.2 AST 8 L ALT 15 Alkaline Phosphatase 82 Total Protein 7.8 Albumin 3.3 L 08/31/18 08/31/18 08/31/18 07:49 11:32 16:47 WBC RBC Hgb Hct MCV MCH MCHC RDW Plt Count MPV Neut % (Auto) Lymph % (Auto) [place] % (Auto) Eos % (Auto) Baso % (Auto) Neut # (Auto) Lymph # (Auto) [place] # (Auto) Eos # (Auto) Baso # (Auto) WBC Differential Differential Comment Sodium Potassium Chloride Carbon Dioxide Anion Gap BUN Creatinine Estimated GFR POC Glucose 160 H 148 H 140 H Random Glucose Calcium Total Bilirubin AST ALT Alkaline Phosphatase Total Protein Albumin Microbiology 08/30/18 14:45 Nasal Wash Influenza Types A,B Antigen - Final Negative for FLU A and B antigen Infection due to influenza A or B cannot be ruled out since the antigen present in the sample may be below the detection limit of the test. Assessment and Plan - Plan COPD EXACERBATION ROSIBEL OBESITY RESPIRATORY FAILURE PLAN O2 NEEDED BIPAP BRONCHODILATOR THERAPTY INCREASE ACTIVITY
[2018-09-01] MEDS: Morphine Sulfate Inj 2 MG/ML Vial IV.PUSH PRN ×4 (03:26→20:56)
[2018-09-01] MEDS: MethylPREDNISolone Sod Succinate Inj 40 MG/ML Vial IV.PUSH SCH ×3 (05:51→22:18)
[2018-09-01] MEDS: Insulin NovoLOG Aspart Correctional Sugar Inj SQ SCH ×4 (08:32→22:18)
[2018-09-01] MEDS: Tiotropium Bromide 18 MCG/ACT Inhaler INH SCH (08:38)
[2018-09-01] MEDS: Budesonide-Formoterol 160/4.5 MCG 6 GM Inhaler INH SCH ×2 (08:39→20:57)
[2018-09-01] MEDS: buPROPion 150 MG 12 HR Tablet PO SCH ×2 (08:40→20:58)
[2018-09-01] MEDS: Senna/Docusate Sodium 8.6/50 MG Tablet PO SCH ×2 (08:41→20:57)
[2018-09-01] MEDS: Carvedilol 12.5 MG Tablet PO SCH ×2 (08:42→20:56)
[2018-09-01] MEDS: levoFLOXacin 500 MG Tablet PO SCH (08:43)
[2018-09-01] MEDS: guaiFENesin 600 MG ER Tablet PO SCH ×2 (08:43→20:56)
[2018-09-01] MEDS: Ferrous Sulfate 325 MG Tablet PO SCH (08:44)
[2018-09-01] MEDS: Heparin - SQ 10,000 UNITS/ML Vial SQ SCH ×2 (08:45→20:57)
[2018-09-01] MEDS: Furosemide 20 MG Tablet PO SCH ×2 (08:45→20:57)
[2018-09-01] MEDS: UMECLIDINIUM INHALATION SCH (08:47)
--- NOTE | 2018-09-01 18:21 | P.PNIM ---
Subjective Interval history: Patient sitting up in bed eating dinner. Says she is feeling better a little bit every day. Says she is not ready to go home yet. Physical Exam Vital signs: Vital Signs 08/31/18 19:00 08/31/18 19:27 08/31/18 19:29 Temperature Pulse Rate 92 H 93 H Respiratory Rate 18 Blood Pressure Pulse Oximetry 94 L 08/31/18 19:52 08/31/18 20:00 08/31/18 20:04 Temperature 97.7 F Pulse Rate 84 95 H Respiratory Rate 20 Blood Pressure 153/89 H Pulse Oximetry 94 L 94 L 08/31/18 20:13 08/31/18 20:35 08/31/18 21:00 Temperature Pulse Rate 90 Respiratory Rate 18 Blood Pressure Pulse Oximetry 96 08/31/18 22:06 08/31/18 23:00 08/31/18 23:58 Temperature Pulse Rate 81 94 H 87 Respiratory Rate 18 Blood Pressure Pulse Oximetry 93 L 09/01/18 00:00 09/01/18 00:10 09/01/18 01:00 Temperature 98.1 F Pulse Rate 85 83 70 Respiratory Rate 20 Blood Pressure 132/74 Pulse Oximetry 96 09/01/18 02:00 09/01/18 03:00 09/01/18 03:28 Temperature Pulse Rate 76 76 Respiratory Rate 18 Blood Pressure Pulse Oximetry 09/01/18 03:30 09/01/18 04:00 09/01/18 05:00 Temperature 98.3 F Pulse Rate 84 69 72 Respiratory Rate 20 Blood Pressure 147/88 H Pulse Oximetry 94 L 09/01/18 06:00 09/01/18 08:27 09/01/18 08:28 Temperature Pulse Rate 100 H 84 Respiratory Rate 18 Blood Pressure Pulse Oximetry 94 L 09/01/18 08:45 09/01/18 10:27 09/01/18 12:01 Temperature 97.9 F Pulse Rate 80 Respiratory Rate 18 20 Blood Pressure 156/89 H Pulse Oximetry 95 94 L 09/01/18 14:29 09/01/18 14:30 Temperature Pulse Rate 74 Respiratory Rate 20 Blood Pressure Pulse Oximetry 92 L Intake & Output 08/31/18 09/01/18 09/01/18 18:59 06:59 18:59 Intake Total 2160 / 2160 Output Total 800 / 800 700 / 700 Balance 1360 / 1360 -700 / -700 Weight 119.8 kg Intake: Oral 2160 / 2160 Output: Urine 800 / 800 700 / 700 Other: # Bowel Movements 1 Narrative: GENERAL: Patient sitting up on edge of bed. Appears comfortable., Short of breath talking. SKIN: Warm and dry. HEAD: Normocephalic. EYES: No scleral icterus. No injection or drainage. NECK: Supple, trachea midline. No JVD. CARDIOVASCULAR: Regular rate and rhythm without murmurs, gallops, or rubs. RESPIRATORY: Breath sounds equal bilaterally. Diminished breath sounds bilaterally. No accessory muscle use. GASTROINTESTINAL: Abdomen soft, non-tender, nondistended. MUSCULOSKELETAL: No cyanosis, or edema. BACK: Nontender without obvious deformity. No CVA tenderness. Results Labs CBC & Chem 7: 08/31/18 07:12 08/31/18 07:12 Assessment and Plan (1) COPD (chronic obstructive pulmonary disease): Code(s): J44.9 - Chronic obstructive pulmonary disease, unspecified Status: Acute (2) Hypoxia: Code(s): R09.02 - Hypoxemia Status: Acute (3) Acute respiratory distress: Code(s): R06.03 - Acute respiratory distress Status: Acute (4) DM (diabetes mellitus): Code(s): E11.9 - Type 2 diabetes mellitus without complications Status: Acute Plan 57-year-old white female admitted for shortness of breath secondary to COPD exacerbation Sob COPD flareup Continue steroids, duo nebs, ICS -Home montelukast, Advair = Pulmonology following. Slowly improving. Continue steroids. Pending pulmonology clearance. Chronic hypoxic respiratory failure COPD is the main cause, wean to home 2 L Hypertension -Home Coreg, furosemide, atorvastatin Anxiety Bupropion DM - SS w/ accuchecks SCDs Discussed Condition With: Patient, nurse. Discharge Planning: Home when cleared by pulmonology. Progress Note: Quality VTE Deep Vein Thrombosis/Pulmonary Embolism Present on Admission: No
[2018-09-01] MEDS: Montelukast 10 MG Tablet PO SCH (18:23)
--- NOTE | 2018-09-02 01:08 | P.PN ---
Subjective Interval history: alert less sob Physical Exam Vital signs: Vital Signs 09/01/18 02:00 09/01/18 03:00 09/01/18 03:28 Temperature Pulse Rate 76 76 Respiratory Rate 18 Blood Pressure Pulse Oximetry 09/01/18 03:30 09/01/18 04:00 09/01/18 05:00 Temperature 98.3 F Pulse Rate 84 69 72 Respiratory Rate 20 Blood Pressure 147/88 H Pulse Oximetry 94 L 09/01/18 06:00 09/01/18 08:27 09/01/18 08:28 Temperature Pulse Rate 100 H 84 Respiratory Rate 18 Blood Pressure Pulse Oximetry 94 L 09/01/18 08:45 09/01/18 10:27 09/01/18 12:00 Temperature 97.9 F 98 F Pulse Rate 80 81 Respiratory Rate 18 18 Blood Pressure 156/89 H 145/68 H Pulse Oximetry 95 94 L 09/01/18 12:01 09/01/18 14:29 09/01/18 14:30 Temperature Pulse Rate 74 Respiratory Rate 20 20 Blood Pressure Pulse Oximetry 92 L 09/01/18 16:00 09/01/18 19:22 09/01/18 19:30 Temperature 98 F Pulse Rate 85 88 Respiratory Rate 22 19 16 Blood Pressure 138/70 Pulse Oximetry 94 L 09/01/18 20:00 09/01/18 22:17 09/02/18 00:00 Temperature 97.9 F 97.7 F Pulse Rate 83 80 Respiratory Rate 22 16 Blood Pressure 159/89 H 114/63 Pulse Oximetry 95 100 Intake & Output 09/01/18 09/01/18 09/02/18 06:59 18:59 06:59 Output Total 700 / 700 1200 / 1200 Balance -700 / -700 -1200 / -1200 Weight 119.8 kg Output: Urine 700 / 700 1200 / 1200 Other: # Bowel Movements 1 - Constitutional no acute distress - Routine HEENT Exam Head: Present: normocephalic ENT: Present: mucous membranes moist - Routine Neck Exam Present: supple - Routine Respiratory Exam Present: CTA bilaterally - Routine Cardiovascular Exam Present: RRR, S1 - Routine Neurological Exam Present: alert, oriented X3 Results - Labs CBC & Chem 7: 08/31/18 07:12 08/31/18 07:12 Laboratory Results - last 24 hr 09/01/18 09/01/18 09/01/18 07:49 11:49 16:28 POC Glucose 147 H 131 H 100 09/01/18 22:17 POC Glucose 129 H Assessment and Plan - Plan COPD EXACERBATION ROSIBEL OBESITY RESPIRATORY FAILURE PLAN O2 NEEDED BIPAP BRONCHODILATOR THERAPTY INCREASE ACTIVITY
[2018-09-02] MEDS: Morphine Sulfate Inj 2 MG/ML Vial IV.PUSH PRN ×3 (04:30→20:42)
[2018-09-02] MEDS: MethylPREDNISolone Sod Succinate Inj 40 MG/ML Vial IV.PUSH SCH ×3 (05:19→21:00)
[2018-09-02] MEDS: Insulin NovoLOG Aspart Correctional Sugar Inj SQ SCH ×4 (08:48→20:44)
[2018-09-02] MEDS: UMECLIDINIUM INHALATION SCH (08:51)
[2018-09-02] MEDS: Carvedilol 12.5 MG Tablet PO SCH ×2 (08:58→20:43)
[2018-09-02] MEDS: guaiFENesin 600 MG ER Tablet PO SCH ×2 (08:59→20:42)
[2018-09-02] MEDS: Heparin - SQ 10,000 UNITS/ML Vial SQ SCH ×2 (08:59→20:43)
[2018-09-02] MEDS: buPROPion 150 MG 12 HR Tablet PO SCH ×2 (08:59→20:42)
[2018-09-02] MEDS: Ferrous Sulfate 325 MG Tablet PO SCH (08:59)
[2018-09-02] MEDS: levoFLOXacin 500 MG Tablet PO SCH (09:00)
[2018-09-02] MEDS: Furosemide 20 MG Tablet PO SCH ×2 (09:00→20:43)
[2018-09-02] MEDS: Senna/Docusate Sodium 8.6/50 MG Tablet PO SCH (09:00)
[2018-09-02] MEDS: Tiotropium Bromide 18 MCG/ACT Inhaler INH SCH (09:01)
[2018-09-02] MEDS: Budesonide-Formoterol 160/4.5 MCG 6 GM Inhaler INH SCH ×2 (09:01→20:45)
[2018-09-02] MEDS: Acetaminophen 500 MG Tablet PO PRN (09:08)
[2018-09-02] MEDS: Montelukast 10 MG Tablet PO SCH (17:46)
--- NOTE | 2018-09-02 18:54 | P.PNIM ---
Subjective Interval history: Patient says her breathing is improving. Still not ready to go home. Denies any chest pain. Physical Exam Vital signs: Vital Signs 09/01/18 19:22 09/01/18 19:30 09/01/18 20:00 Temperature 97.9 F Pulse Rate 88 83 Respiratory Rate 19 16 22 Blood Pressure 159/89 H Pulse Oximetry 94 L 95 09/01/18 20:12 09/01/18 21:00 09/01/18 22:00 Temperature Pulse Rate 76 86 78 Respiratory Rate Blood Pressure Pulse Oximetry 09/01/18 22:17 09/01/18 23:10 09/02/18 00:00 Temperature 97.7 F Pulse Rate 80 Respiratory Rate 16 Blood Pressure 114/63 Pulse Oximetry 95 100 09/02/18 00:08 09/02/18 01:00 09/02/18 02:00 Temperature Pulse Rate 71 65 58 L Respiratory Rate Blood Pressure Pulse Oximetry 09/02/18 03:00 09/02/18 03:05 09/02/18 04:00 Temperature 99.0 F Pulse Rate 60 74 Respiratory Rate 20 Blood Pressure 136/82 Pulse Oximetry 95 96 09/02/18 05:00 09/02/18 06:00 09/02/18 07:00 Temperature Pulse Rate 68 72 69 Respiratory Rate Blood Pressure Pulse Oximetry 09/02/18 07:45 09/02/18 08:00 09/02/18 09:00 Temperature 99.1 F Pulse Rate 72 80 100 H Respiratory Rate 16 18 Blood Pressure 162/93 H Pulse Oximetry 99 96 09/02/18 10:00 09/02/18 11:00 09/02/18 12:00 Temperature 99.3 F Pulse Rate 72 82 71 Respiratory Rate 18 Blood Pressure 138/84 Pulse Oximetry 92 L 09/02/18 13:00 09/02/18 14:00 09/02/18 17:32 Temperature 98.8 F Pulse Rate 84 84 80 Respiratory Rate 16 16 Blood Pressure 139/80 Pulse Oximetry 96 Intake & Output 09/01/18 09/02/18 09/02/18 18:59 06:59 18:59 Intake Total 1200 / 1200 2490 / 2490 Output Total 1200 / 1200 1100 / 1100 2100 / 2100 Balance -1200 / -1200 100 / 100 390 / 390 Weight 119.7 kg Intake: Oral 1200 / 1200 2490 / 2490 Output: Urine 1200 / 1200 1100 / 1100 2100 / 2100 Other: Date of Last Bowel Movement 08/29/18 09/02/18 # Bowel Movements 2 Narrative: GENERAL: Patient sitting up on edge of bed. Appears comfortable., Less short of breath talking today. SKIN: Warm and dry. HEAD: Normocephalic. EYES: No scleral icterus. No injection or drainage. NECK: Supple, trachea midline. No JVD. CARDIOVASCULAR: Regular rate and rhythm without murmurs, gallops, or rubs. RESPIRATORY: Breath sounds equal bilaterally. Diminished breath sounds bilaterally. No accessory muscle use. GASTROINTESTINAL: Abdomen soft, non-tender, nondistended. MUSCULOSKELETAL: No cyanosis, or edema. BACK: Nontender without obvious deformity. No CVA tenderness. Results Labs CBC & Chem 7: 08/31/18 07:12 08/31/18 07:12 Assessment and Plan (1) COPD (chronic obstructive pulmonary disease): Code(s): J44.9 - Chronic obstructive pulmonary disease, unspecified Status: Acute (2) Hypoxia: Code(s): R09.02 - Hypoxemia Status: Acute (3) Acute respiratory distress: Code(s): R06.03 - Acute respiratory distress Status: Acute (4) DM (diabetes mellitus): Code(s): E11.9 - Type 2 diabetes mellitus without complications Status: Acute Plan 57-year-old white female admitted for shortness of breath secondary to COPD exacerbation Sob COPD flareup Continue steroids, duo nebs, ICS -Home montelukast, Advair = Pulmonology following. Slowly improving. Continue steroids. Pending pulmonology clearance. Chronic hypoxic respiratory failure COPD is the main cause, wean to home 2 L Hypertension -Home Coreg, furosemide, atorvastatin Anxiety Continue bupropion DM - SS w/ accuchecks SCDs Discharge Planning: Home when cleared by pulmonology. PT recommends home with home health. Progress Note: Quality VTE Deep Vein Thrombosis/Pulmonary Embolism Present on Admission: No
--- NOTE | 2018-09-02 18:55 | P.DCO ---
Diagnosis (1) COPD (chronic obstructive pulmonary disease): Status: Acute Physical Therapy Order: Evaluate and treat Home Health Nursing Order: Signs/symptoms of disease process, Oxygen administration education and Nursing assessment with vital signs [employer] Order: To evaluate: Support services Case Management Consult Case Management Consult-Home Health: Yes I have seen patient Sarah Cali on 09/02/18. My clinical findings support the need for the requested home health care services because: Limited mobility due to disease progression I certify that my clinical findings support that this patient is homebound because: Unsafe to leave home unassisted
[2018-09-03] MEDS: Morphine Sulfate Inj 2 MG/ML Vial IV.PUSH PRN ×2 (00:32→04:23)
[2018-09-03] MEDS: Senna/Docusate Sodium 8.6/50 MG Tablet PO SCH ×2 (00:33→09:56)
[2018-09-03] MEDS: MethylPREDNISolone Sod Succinate Inj 40 MG/ML Vial IV.PUSH SCH (05:07)
[2018-09-03 07:48] VITALS: RESP 20; TEMP 97.4
[2018-09-03 07:50] VITALS: BP 157/89
--- NOTE | 2018-09-03 08:48 | P.PN ---
Subjective Interval history: alert NO SOB AT REST Physical Exam Vital signs: Vital Signs 09/02/18 09:00 09/02/18 10:00 09/02/18 11:00 Temperature Pulse Rate 100 H 72 82 Respiratory Rate Blood Pressure Pulse Oximetry 09/02/18 12:00 09/02/18 13:00 09/02/18 14:00 Temperature 99.3 F Pulse Rate 71 84 84 Respiratory Rate 18 16 Blood Pressure 138/84 Pulse Oximetry 92 L 09/02/18 15:00 09/02/18 16:00 09/02/18 17:32 Temperature 98.8 F Pulse Rate 80 74 80 Respiratory Rate 16 Blood Pressure 139/80 Pulse Oximetry 96 09/02/18 20:00 09/02/18 20:30 09/02/18 20:55 Temperature 98.6 F Pulse Rate 86 87 92 H Respiratory Rate 16 16 Blood Pressure 158/83 H Pulse Oximetry 95 96 09/02/18 23:55 09/03/18 00:00 09/03/18 04:00 Temperature 98.1 F 98.2 F Pulse Rate 78 68 71 Respiratory Rate 16 18 Blood Pressure 135/76 130/82 Pulse Oximetry 95 94 L 09/03/18 04:07 09/03/18 07:37 09/03/18 07:46 Temperature 97.4 F L Pulse Rate 73 70 Respiratory Rate 16 20 Blood Pressure 157/89 H Pulse Oximetry 97 96 96 Intake & Output 09/02/18 09/03/18 09/03/18 18:59 06:59 18:59 Intake Total 2490 / 2490 1200 / 1200 Output Total 2099 / 2099 1800 / 1800 Balance 390 / 390 -600 / -600 Weight 119.6 kg Intake: Oral 2490 / 2490 1200 / 1200 Output: Urine 2099 / 2100 1800 / 1800 Other: Date of Last Bowel Movement 09/02/18 09/03/18 # Bowel Movements 2 1 LUNGS CLEAR SI S2 NO S3 NO PHLEBITIS Results - Labs CBC & Chem 7: 08/31/18 07:12 08/31/18 07:12 Laboratory Results - last 24 hr 09/02/18 09/02/18 09/02/18 11:57 17:27 20:41 POC Glucose 93 152 H 133 H 09/03/18 07:46 POC Glucose 124 H Assessment and Plan - Plan COPD EXACERBATION ROSIBEL OBESITY RESPIRATORY FAILURE PLAN O2 NEEDED BIPAP BRONCHODILATOR THERAPTY INCREASE ACTIVITY OK FOR D/C HOME WILL SIGN OFF OFFICE 1 WEEK
--- NOTE | 2018-09-03 09:04 | P.DS ---
DS: Providers Date of admission: 08/30/18 03:45 Primary care physician: BG Baez Consults: 08/30/18 03:46 Consult to Pulmonology Routine Consulting Provider: Tino Dsouza Press Secretary:: Jaron Salmeron Patient known to:: Jaron Salmeron Reason for Consultation: COPD CONSULT FOR AM Notified:: Service Spoke with:: Shaw Date Notified:: 08/30/18 Time Notified:: 04:08 Ordering Provider: CALVIN Brief History from admission: This is a 57-year-old female with a PMH of HTN, Hyperlipidemia, DM, RLS, CHF (Unknown EF) and O2 Dependent COPD who was brought to the ER by EMS for SOB/wheezing. Notes progressive SOB/wheezing x1 day despite home Nebulizer treatments. O2 sat 89% on RA upon EMS arrival w/ significant respiratory distress, placed on BIPAP in ER. Denies fever or chills , notes "hot flashes". +Non-productive cough. Follows w/ Dr. Salmeron as outpatient. On arrival, BP 130/28, HR 97, O2 sat 98% on NRB @15L, placed immediately on BIPAP, now weaned down to 3L NC. +persistent wheezing, SOB and significant dyspnea w/ speech/activity. WBC 17.1. Chemistry essentially unremarkable. Lactic Acid 1.1. ABG pH 7.36, PCO2 64, PO2 72 on BiPAP, 50% FiO2. CXR with no acute findings. DS: Diagnosis Discharge Diagnosis (1) COPD (chronic obstructive pulmonary disease): Status: Acute DS: Summary 57-year-old white female admitted for shortness of breath secondary to COPD exacerbation. Patient is with acute on chronic hypoxic respiratory failure with COPD. Pulmonology was consulted. Patient include improved slowly, she was weaned off on oxygen. She improved discharge home in stable condition to follow-up with PCP and consultants as outpatient. Patient has oxygen at home. Time Spent with Patient Total time spent providing and/or coordinating discharge services: > 30 min Quality: VTE Deep Vein Thrombosis/Pulmonary Embolism Present on Admission: No Exam Narrative Exam Narrative: GENERAL: Pleasant 57-year-old female, well-nourished well- developed appears in not acute distress. CARDIOVASCULAR: Regular rate and rhythm. RESPIRATORY: No accessory muscle use. Decreased breath sounds. No wheezing. Saturating well on nasal cannula. GASTROINTESTINAL: Abdomen soft, non-tender, nondistended. Hepatic and splenic margins not palpable. MUSCULOSKELETAL: Extremities without clubbing, cyanosis, or edema. No obvious deformities. NEUROLOGICAL: Awake and alert. No obvious cranial nerve deficits. Motor grossly within normal limits. Five out of 5 muscle strength in the arms and legs. Normal speech. PSYCHIATRIC: Appropriate mood and affect; insight and judgment normal. Results Labs on day of discharge: Labs from last 24 hours 09/03/18 09/02/18 09/02/18 07:46 20:41 17:27 POC Glucose 124 H 133 H 152 H 09/02/18 11:57 POC Glucose 93 Impressions ITS Impressions Chest X-Ray 08/30/18 01:56 CONCLUSION: No acute disease Discharge Plan Discharge Disposition Patient Disposition: W/Home Health Service Discharge Condition Condition: Stable Discharge Order Discharge Orders: Discharge Order (Routine); Ordered 09/03/18 Ordered By: Nohemi Dickens Discharge Details Anticipated Discharge Date: 09/03/18 Discharge Comment: dc when arrangements are done Physicians Team ED Provider: Shoshana Powell Primary Care Provider: Brayan Johnson Attending Provider: Nohemi Dickens Other Providers: Tino Dsouza Rxs /Orders / Referrals /Forms Prescriptions: New levofloxacin 500 mg Tablet 500 mg PO DAILY Qty: 3 RF: 0 prednisone 20 mg tablet 20 mg PO BID 3 Days Qty: 6 RF: 0 tramadol 50 mg tablet 25 mg PO Q4-6H PRN (Reason: Acute Pain Exception) Qty: 7 RF: 0 Continue pramipexole 1 mg Tablet 1 mg PO DAILY RF: 0 atorvastatin 10 mg Tablet 10 mg PO DAILY RF: 0 pantoprazole 40 mg Tablet,Delayed Release (Dr/Ec) 40 mg PO DAILY RF: 0 ferrous sulfate 325 mg (65 mg iron) Tablet 325 mg PO DAILY RF: 0 montelukast [Singulair] 10 mg Tablet 10 mg PO QPM RF: 0 fluticasone-salmeterol [Advair Diskus] 500-50 mcg/dose Blister With Device 1 inh INHALATION BID RF: 0 carvedilol [Coreg] 25 mg Tablet 25 mg PO BID RF: 0 potassium chloride 10 mEq Tablet Extended Release 10 meq PO DAILY RF: 0 furosemide [Lasix] 20 mg Tablet 20 mg PO BID RF: 0 metformin 500 mg Tablet 500 mg PO BID RF: 0 bupropion HCl 150 mg Tablet Extended Release 12 Hr 150 mg PO BID RF: 0 umeclidinium [Incruse Ellipta] 62.5 mcg/actuation Blister With Device 1 inh INHALATION DAILY RF: 0 Ambulatory Orders / Order Sets / DME: Oxygen Tank (2-5 liter) (Routine) Location: Determined by Patient Ordered By: Nohemi Dickens Referrals: Tino Dsouza MD [Physician] - See Instructions ( Please call the physician' s office to book the appointment to be seen within [1 week].) Brayan Johnson PA [Primary Care Provider] - See Instructions ( Please call the physician's office to book the appointment to be seen within [2-3 days].) Discharge Instructions Patient Printed Instructions: COPD (Chronic Obstructive Pulmonary Disease) (DC) , Fall Prevention (DC) Additional Instructions: Your Health Problems: Goals to Promote Your Health: * To prevent worsening of your condition * To maintain your health at the optimal level Directions to Meet Your Goals: * Take your medications as prescribed * Follow your dietary instruction * Follow activity as directed * Keep your appointments as scheduled * Take your immunizations and boosters as scheduled * If your symptoms worsen call your PCP * If no PCP go to Urgent Care or Emergency Room Smoking is dangerous to your health. Avoid second hand smoke. You may reach the 24-hour crisis hotline for domestic abuse at . Post Discharge Care Plan Care Plan Goals: Your Health Problems: Goals to Promote Your Health: * To prevent worsening of your condition * To maintain your health at the optimal level Directions to Meet Your Goals: * Take your medications as prescribed * Follow your dietary instruction * Follow activity as directed * Keep your appointments as scheduled * Take your immunizations and boosters as scheduled * If your symptoms worsen call your PCP * If no PCP go to Urgent Care or Emergency Room Smoking is dangerous to your health. Avoid second hand smoke. You may reach the 24-hour crisis hotline for domestic abuse at . Status ED Status: Left Department Discharge Information Discharge Date/Time: 09/03/18 13:40
--- NOTE | 2018-09-03 09:05 | P.DCO ---
Diagnosis (1) COPD (chronic obstructive pulmonary disease): Status: Acute Physical Therapy Order: Evaluate and treat Home Health Nursing Order: Medical education, Signs/symptoms of disease process, Oxygen administration education, Medication education-adverse effect, Nursing assessment with vital signs and Telehealth Case Management Consult Case Management Consult-Home Health: Yes I have seen patient Sarah Cali on 09/03/18. My clinical findings support the need for the requested home health care services because: Limited mobility due to disease progression and Patient has SOB I certify that my clinical findings support that this patient is homebound because: Hx COPD - exertion dyspnea/weakness and Unsteady gait/balance
[2018-09-03 09:24] VITALS: O2SAT 92
[2018-09-03] MEDS: Budesonide-Formoterol 160/4.5 MCG 6 GM Inhaler INH SCH (09:51)
[2018-09-03] MEDS: Carvedilol 12.5 MG Tablet PO SCH (09:51)
[2018-09-03] MEDS: Ferrous Sulfate 325 MG Tablet PO SCH (09:52)
[2018-09-03] MEDS: levoFLOXacin 500 MG Tablet PO SCH (09:52)
[2018-09-03] MEDS: buPROPion 150 MG 12 HR Tablet PO SCH (09:53)
[2018-09-03] MEDS: Heparin - SQ 10,000 UNITS/ML Vial SQ SCH (09:53)
[2018-09-03] MEDS: guaiFENesin 600 MG ER Tablet PO SCH (09:54)
[2018-09-03] MEDS: Furosemide 20 MG Tablet PO SCH (09:54)
[2018-09-03] MEDS: Tiotropium Bromide 18 MCG/ACT Inhaler INH SCH (09:55)
[2018-09-03] MEDS: Insulin NovoLOG Aspart Correctional Sugar Inj SQ SCH (12:26)
[2018-09-03 12:33] VITALS: PULSE 72
--- NOTE | 2018-09-03 14:48 | PQ ---
Physician Query Response Document PATIENT: Sarah Cali : 1960 ADMIT DATE: 08/30/2018 3:45 AM DISCH DATE: 09/03/2018 1:40 PM RESPONDING PROVIDER #: MCOSMA QUERY TEXT: CDS Clarification Obesity hypoventilation syndrome in the setting of obesity requiring treatment with CPAP Other explanation of clinical findings. Unable to determine (no explanation for clinical findings). The patient's Clinical Indicators include: The medical record reflects the following clinical findings, treatment, and risk factors. * Clinical Indicators: ROSIBEL * Risk Factors: Obesity * Treatment: CPAP Please clarify and document your clinical opinion in the progress notes and discharge summary includi ng the definitive and/or presumptive diagnosis (suspected or probable), related to the above clinical findings. Please include clinical findings supporting your diagnosis. Thank you, Cassandra Roe : ARMANDO/RN ext. [phone] Query created by: Cassandra Roe on 09/03/2018 12:22 PM RESPONSE TEXT: ROSIBEL with hypoventilation sdr due to morbid obesity with bmi> 40 QUERY TEXT: CDS Clarification Obesity, unspecified in the setting of BMI 42.6 Please clarify severity (Obese, Morbid obesity) Other explanation of clinical findings. Unable to determine (no explanation for clinical findings). The patient's Clinical Indicators include: The medical record reflects the following clinical findings, treatment, and risk factors. * Clinical Indicators: BMI 42.6 Please clarify and document your clinical opinion in the progress notes and discharge summary includi ng the definitive and/or presumptive diagnosis (suspected or probable), related to the above clinical findings. Please include clinical findings supporting your diagnosis. Thank you, Cassandra Roe CDS/RN ext. [phone] Query created by: Cassandra Roe on 09/03/2018 12:25 PM RESPONSE TEXT: Morbid obesity with BMI> 40 Electronically signed by: Nohemi Dickens MD 09/03/2018 2:44 PM
== END 2018-09-03 13:40 | disposition home health service (06) | DRG 190 ==
LOC: NEPC 01:46 → NEDA 03:45 → HCIN 05:15
PROVIDERS: ADMIT Hospitalist; ATTEND Hospitalist
DX: E78.5 Hyperlipidemia, unspecified; G47.33 Obstructive sleep apnea (adult) (pediatric); Z96.652 Presence of left artificial knee joint; Z87.891 Personal history of nicotine dependence; E11.9 Type 2 diabetes mellitus without complications; E87.2 Acidosis; Z98.51 Tubal ligation status; E78.00 Pure hypercholesterolemia, unspecified; J44.1 Chronic obstructive pulmonary disease with (acute) exacerbation; I11.0 Hypertensive heart disease with heart failure; I50.9 Heart failure, unspecified; G25.81 Restless legs syndrome; K21.9 Gastro-esophageal reflux disease without esophagitis; Z79.84 Long term (current) use of oral hypoglycemic drugs; G47.36 Sleep related hypoventilation in conditions classified elsewhere; E66.01 Morbid (severe) obesity due to excess calories; Z99.81 Dependence on supplemental oxygen; F41.9 Anxiety disorder, unspecified; Z68.41 Body mass index [BMI] 40.0-44.9, adult; R26.81 Unsteadiness on feet; D72.829 Elevated white blood cell count, unspecified; J96.21 Acute and chronic respiratory failure with hypoxia; Z79.899 Other long term (current) drug therapy; M19.90 Unspecified osteoarthritis, unspecified site
CPT/HCPCS: 36600; 71010; 71045; 80053; 81001; 82805; 82948; 82962; 83520; 83605; 83735; 83880; 84484; 85025; 85610; 87275; 87276; 87804; 93005; 94002; 94003; 94618; 94620; 94640; 94656; 94657; 94664; 94665; 97161; 99291; J1644; J1815; J2270; J2405; J2920; J3475